=== PATIENT | female | born 1950 | race Caucasian/White ===

== ENCOUNTER 2019-03-02 11:00 | Outpatient (RCR) | payer SELFPAY | END 2019-04-01 00:01 | LOC: CR 11:00 | PROVIDERS: Family Provider Internal Medicine; Referring Provider Internal Medicine Cardiovascular Disease; Visit Provider Internal Medicine | DX: Z98.61 Coronary angioplasty status (principal) ==

== ENCOUNTER 2019-04-09 11:16 | Outpatient (RCR) | payer SELFPAY | END 2019-05-02 23:59 | disposition home or self-care (01) | LOC: CR 11:16 | PROVIDERS: Family Provider Internal Medicine; Referring Provider Internal Medicine Cardiovascular Disease; Visit Provider Internal Medicine Cardiovascular Disease | DX: Z95.5 Presence of coronary angioplasty implant and graft (principal) ==

== ENCOUNTER → 2019-04-23 09:05 | Outpatient (BNVA) | payer MEDICARE, BC, SELFPAY | PROVIDERS: Family Provider Internal Medicine; Referring Provider Internal Medicine; Visit Provider Podiatrist Foot & Ankle Surgery | DX: M21.961 Unspecified acquired deformity of right lower leg (principal) | CPT/HCPCS: 73630; 77077 ==

== ENCOUNTER 2019-05-05 13:09 | Outpatient (RCR) | payer SELFPAY | END 2019-05-31 23:59 | disposition home or self-care (01) | LOC: CR 13:09 | PROVIDERS: Family Provider Internal Medicine; Referring Provider Internal Medicine Cardiovascular Disease; Visit Provider Internal Medicine Cardiovascular Disease | DX: Z95.5 Presence of coronary angioplasty implant and graft (principal) ==

== ENCOUNTER 2019-06-02 12:40 | Outpatient (RCR) | payer SELFPAY | END 2019-07-01 23:59 | disposition home or self-care (01) | LOC: CR 12:40 | PROVIDERS: Family Provider Internal Medicine; Referring Provider Internal Medicine Cardiovascular Disease; Visit Provider Internal Medicine Cardiovascular Disease | DX: Z95.5 Presence of coronary angioplasty implant and graft (principal) ==

== ENCOUNTER 2019-09-01 14:10 | Outpatient (RCR) | payer SELFPAY | END 2019-09-30 23:59 | disposition home or self-care (01) | LOC: CR 14:10 | PROVIDERS: Family Provider Internal Medicine; Referring Provider Internal Medicine Cardiovascular Disease; Visit Provider Internal Medicine Cardiovascular Disease | DX: Z95.5 Presence of coronary angioplasty implant and graft (principal) ==

== ENCOUNTER 2019-10-01 | Outpatient (RCR) | payer SELFPAY | END 2019-10-31 23:00 | disposition home or self-care (01) | LOC: CR | PROVIDERS: Family Provider Internal Medicine; Referring Provider Internal Medicine Cardiovascular Disease; Visit Provider Internal Medicine Cardiovascular Disease | DX: Z95.5 Presence of coronary angioplasty implant and graft (principal) ==

== ENCOUNTER 2019-11-04 13:10 | Outpatient (RCR) | payer SELFPAY | END 2019-12-01 23:59 | disposition home or self-care (01) | LOC: CR 13:10 | PROVIDERS: Family Provider Internal Medicine; Visit Provider Internal Medicine Cardiovascular Disease | DX: Z95.5 Presence of coronary angioplasty implant and graft (principal) ==

== ENCOUNTER → 2019-11-24 10:41 | Outpatient (BNVA) | payer MEDICARE, BC, SELFPAY | PROVIDERS: Family Provider Internal Medicine; Visit Provider Podiatrist Foot & Ankle Surgery | DX: M25.572 Pain in left ankle and joints of left foot (principal) | CPT/HCPCS: 73610 ==

== ENCOUNTER 2019-12-02 14:35 | Outpatient (RCR) | payer SELFPAY | END 2019-12-31 23:59 | disposition home or self-care (01) | LOC: CR 14:35 | PROVIDERS: Family Provider Internal Medicine; Visit Provider Internal Medicine Cardiovascular Disease | DX: Z95.5 Presence of coronary angioplasty implant and graft (principal) ==

== ENCOUNTER 2020-01-02 10:42 | Outpatient (RCR) | payer SELFPAY | END 2020-01-31 23:59 | disposition home or self-care (01) | LOC: CR 10:42 | PROVIDERS: Family Provider Internal Medicine; Visit Provider Internal Medicine Cardiovascular Disease | DX: Z95.5 Presence of coronary angioplasty implant and graft (principal) ==

== ENCOUNTER 2020-01-05 08:17 | Outpatient (CLI) | payer MEDICARE, BC, SELFPAY ==
--- NOTE | 2020-01-05 08:23 | MM_ITS ---
WS: [id number] Bilateral screening digital mammogram, 01/05/2020 Clinical Data: SCREENING Comparison: 01/01/2019, 12/25/2017, 11/30/2016, 11/29/2015, 11/26/2014, 05/28/2014, 12/10/2013, 11/25/2013, 11/21/2012, , 10/26/2010, 10/21/2009, 10/19/2008, 10/17/2007, 10/11/2006. Findings: The breast parenchymal pattern shows fibroglandular tissue No spiculated masses or clustered calcific ations are seen. There are no secondary signs of carcinoma. MM/[id number] Impression: 1. Negative bilateral mammogram unchanged. 2. Recommend annual screening mammograms. BIRADS: 1-Negative FOLLOW UP: 1 Year Follow-up The CAD bag checker was used.
== END 2020-01-05 08:18 | disposition home or self-care (01) ==
LOC: RADSHAW 08:22
PROVIDERS: PCP Internal Medicine; Visit Provider Obstetrics & Gynecology
DX: Z12.31 Encounter for screening mammogram for malignant neoplasm of breast (principal)
CPT/HCPCS: 77067

== ENCOUNTER 2020-02-02 10:33 | Outpatient (RCR) | payer SELFPAY | END 2020-03-01 23:59 | disposition home or self-care (01) | LOC: CR 10:33 | PROVIDERS: Family Provider Internal Medicine; PCP Internal Medicine; Referring Provider Internal Medicine; Visit Provider Internal Medicine | DX: Z95.5 Presence of coronary angioplasty implant and graft (principal) ==

== ENCOUNTER 2020-03-04 10:17 | Outpatient (RCR) | payer SELFPAY | END 2020-04-01 23:59 | disposition home or self-care (01) | LOC: CR 10:17 | PROVIDERS: Family Provider Internal Medicine; PCP Internal Medicine; Referring Provider Internal Medicine; Visit Provider Internal Medicine | DX: Z95.5 Presence of coronary angioplasty implant and graft (principal) ==

== ENCOUNTER → 2020-03-12 09:32 | Outpatient (BNVA) | payer MEDICARE, BC, SELFPAY | PROVIDERS: Family Provider Internal Medicine; PCP Internal Medicine; Referring Provider Podiatrist Foot & Ankle Surgery; Visit Provider Anesthesiology Pain Medicine | DX: G89.29 Other chronic pain (principal); M25.572 Pain in left ankle and joints of left foot; Z79.891 Long term (current) use of opiate analgesic | CPT/HCPCS: 99203 ==

== ENCOUNTER → 2020-03-18 10:18 | Outpatient (BNVA) | payer MEDICARE, BC, SELFPAY | PROVIDERS: Family Provider Internal Medicine; PCP Internal Medicine; Visit Provider Nurse Practitioner Family | DX: Z20.828 Contact with and (suspected) exposure to other viral communicable diseases (principal); J06.9 Acute upper respiratory infection, unspecified | CPT/HCPCS: 87635 ==

== ENCOUNTER 2020-03-21 04:55 | Emergency (ER) | payer MEDICARE, BC, SELFPAY ==
[2020-03-21] VITALS (23 sets, daily range): BP systolic 112–128; BP diastolic 58–82; PULSE 46–73; RESP 13–21; TEMP 36.3; O2SAT 94–98; BMI 24.0
--- NOTE | 2020-03-21 05:10 | XRR_ITS ---
PROCEDURE INFORMATION: Exam: XR Chest, 1 View Exam date and time: 03/21/2020 5:52 AM Age: 69 years old Clinical indication: Condition or disease; Other: Covid 19 TECHNIQUE: Imaging protocol: XR of the chest Views: 1 view. COMPARISON: CR Chest 1 view [id number] 12/30/2013 11:47 AM FINDINGS: Again demonstrated are moderate ill-defined coarse opacities in mainly peripheral portions of bilateral mid to lower lung zones, likely fibrosis/scarring. Otherwise no focal pulmonary consolidation is demonstrated on this single frontal image. No significant obscuration of the lateral costophrenic angles is demonstrated. No significant vascular congestion is demonstrated. Visualized cardiac silhouette size appears within normal limits. There are calcifications in the thoracic aorta. XR/XR chest 1V portable [id number] IMPRESSION: Again demonstrated are moderate ill-defined coarse opacities in mainly peripheral portions of bilateral mid to lower lung zones, likely fibrosis/scarring. Otherwise no definite acute pulmonary process is demonstrated.
--- NOTE | 2020-03-21 05:37 | ED_ITS ---
HPI - COVID General: Chief Complaint: COVID symptoms Stated Complaint: infusion Time Seen by Provider: 03/21/20 05:10 Triage information: No fever, cough or shortness of breath . No known COVID + exposure last 14 days History of Present Illness: MD complaint: known COVID positive Prior covid testing: yes, results known COVID 19 common symptoms: positive body aches, headache(s) and nasal congestion; negative cough, dyspnea, throat pain, nausea or vomiting COVID 19 other sytmptoms: negative chest pressure or chest pain Onset (ago): day(s) Severity: moderate Pertinent comorbid conditions: hypertension Treatment prior to arrival: acetaminophen COVID Results: SARS-CoV-2 RNA (RT-PCR) Detected (NOT DETECTED) A 03/18/20 10:18 03/18/20 Review of Systems Const: Reports: body aches ENMT: Reports: nasal congestion; Denies: throat pain Card: Denies: chest pain Resp: Denies: dyspnea GI: Denies: nausea or vomiting Neuro: Reports: headache(s) PFSH ED PFSH: Medical History (Updated 03/21/20 @ 05:43 by Eliu Bernard DO) ASHD (arteriosclerotic heart disease) Hypercholesteremia Hypertension Pulmonary fibrosis SOB (shortness of breath) Surgical History (Updated 03/12/20 @ 09:38 by Ivana Robles LPN) H/O heart artery stent Family History Mother CAD (coronary artery disease) Diabetes Hypertension Father Cancer Hyperlipidemia Hypertension Sister Diabetes Denies family history of Clotting disorder Dementia Psychiatric illness Chronic kidney disease (CKD) Suicide Anesthesia complication Bleeding disorder Family history of premature coronary artery disease Lung disease Stroke Social History Smoking and tobacco status: former smoker Alcohol intake: never Lives independently: Yes Current occupational status: retired History of recent travel: No Physical Exam Const: COMMON NORMALS: no acute distress, average body habitus and patient oriented x3 HENMT: COMMON NORMALS: normocephalic HEAD & SCALP: normocephalic Chest: COMMONS NORMALS: normal inspection of the chest Resp: COMMON NORMALS: normal respiratory effort, No retractions, No use of accessory muscles and clear to auscultation bilaterally AUSCULTATION: clear to auscultation bilaterally Neuro: COMMON NORMALS: patient oriented x3 Course Vital Signs: Vital signs: Vital Signs Temperature 97.4 F L 03/21/20 05:16 Pulse Rate 51 L 03/21/20 06:35 Respiratory Rate 13 03/21/20 06:35 Blood Pressure 128/66 03/21/20 06:35 Pulse Oximetry 97 03/21/20 06:35 MDM - COVID MDM Narrative: Medical decision making narrative: 69-year-old female with COVID-19. Her chest x-ray is stable from prior. She is a candidate for monoclonal antibody infusion, and elected to have this done after discussion of risks and potential benefits. She is tolerating the infusion well. Should she continue to do so, she will be discharged to home. Laboratory otherwise is benign at this point. Lab Data: Labs: Lab Results 03/21/20 03/21/20 Range/Units 05:38 05:38 WBC 5.4 (4.0-10.0) 10^3/ uL RBC 4.72 (4.1-5.3) 10^6/u L Hgb 13.0 (11.5-15.3) g/dL Hct 42.2 (37.0-47.0) % MCV 89.4 (81-99) fL MCH 27.5 L (28.0-34.0) pg MCHC 30.8 (30.0-36.0) g/dL RDW 13.4 (12.1-15.1) % Plt Count 174 (130-400) 10^3/c mm MPV 12.4 H (7.4-10.4) fL Neut % (Auto) 57.6 % Lymph % (Auto) 26.7 % [place] % (Auto) 9.7 % Eos % (Auto) 5.0 % Baso % (Auto) 0.6 % Neut # (Auto) 3.08 (1.8-7.7) 10^3/u L Lymph # (Auto) 1.4 (0.8-4.8) 10^3/u L [place] # (Auto) 0.5 (0.2-0.9) 10^3/u L Eos # (Auto) 0.3 (0.0-0.8) 10^3/u L Baso # (Auto) 0.0 (0.0-0.1) 10^3/u L Nucleated RBC % (a uto) 0 % Nucleated RBCs # 0.0 /100WBC Sodium 140 (136-145) mmol/L Potassium 3.5 (3.5-5.1) mmol/L Chloride 100 (98-107) mmol/L Carbon Dioxide 26 (22-29) mmol/L Anion Gap 17.5 (5-19) BUN 20 (8-23) mg/dL GFR Calculation Not Reportable Calculated Osmolal ity 295 (285-295) mOsm/k g Calcium 8.8 (8.5-10.5) mg/dL Total Bilirubin 0.4 (0.15-1.2) mg/dL AST 26 (0-32) U/L ALT 21 (0-33) U/L Alkaline Phosphata se 89 (35-105) IU/L Total Protein 6.8 (6.6-8.7) g/dL Albumin 3.9 (3.5-5.2) g/dL Globulin 2.9 (1.3-4.6) g/dL Procalcitonin 0.08 (0-0.5) ng/mL COVID Results: SARS-CoV-2 RNA (RT-PCR) Detected (NOT DETECTED) A 03/18/20 10:18 03/18/20 Monoclonal Antibody Treatments Inclusion/Exclusion Criteria weight >/= 40 kg and + direct Sars-Cov-2 test less than 7-10 days ago age >/= 65 not requiring hospitalization, not requiring oxygen (if not chronically on oxygen) and no increase oxygen requirement (if chronically on oxygen) Patient education patient/family/caregiver received/reviewed fact sheet, Emergency Use Authorization/unapproved drug status discussed with patient/family/caregiver, alternatives to this treatment discussed with patient/family/caregiver, risks and benefits of medication reviewed with patient/family/caregiver, patient/family/caregiver given opportunity for questions, which were answered and patient consents to receiving Monoclonal Antibody Treatment Plan for treatment Meets criteria for Monoclonal Antibody infusion Ordering Monoclonal Antibody infusion for today and Monoclonal antibody information given Discharge Plan Discharge Patient Disposition: Home Clinical Impression: COVID-19 Condition: Stable Prescriptions: No Action estradiol [Estrace] 0.01 % (0.1 mg/gram) cream 1 gm VAGINAL .weekly RF: 0 meloxicam 15 mg tablet 15 mg PO QDAY RF: 0 thyroid (pork) [[place] Thyroid] 60 mg tablet 60 mg PO QDAY RF: 0 (DME) Custom Nimo Brace See Rx Instructions .Route .MEDSUPPLY Qty: 1 RF: 0 hydrocodone-acetaminophen 5-325 mg tablet 1 tab PO Q6H PRNRF: 0 hydrochlorothiazide 25 mg tablet 25 mg PO DAILY RF: 0 aspirin 81 mg tablet,chewable 81 mg PO DAILY RF: 0 metoprolol tartrate 25 mg tablet 25 mg PO BID 90 Days Qty: 180 RF: 3 simvastatin 40 mg tablet 40 mg PO .HS 90 Days Qty: 90 RF: 3 Discharge Orders: Discharge ED (Routine); Ordered 03/21/20 Ordered By: Eliu Bernard Referrals: Sarina Dodson MD [Primary Care Provider] - 4-7 days Discharge Diet: Advance as tolerated Discharge Activity: Limit activity as instructed Patient Instructions: Viral Syndrome (ED) Activity Restrictions/Additional Instructions: Continue to quarantine a total of at least 10 days as directed by your primary provider. Return for worsening shortness of breath, vomiting liquids or medications, inabilityto control fever, other concerning symptoms. Coding Level of Care Code ED Field Nurse Case Manager for [employer] Fwd Exam Expanded Problem Focused
[2020-03-21 05:44] LABS: Basophils % 0.6 %; Eosinophils # 0.3 10^3/uL (0.0-0.8); Hematocrit 42.2 % (37.0-47.0); Lymphocytes # 1.4 10^3/uL (0.8-4.8); Lymphocytes % 26.7 %; Mean Corpuscular HGB Conc 30.8 g/dL (30.0-36.0); Mean Corpuscular Hemoglobin 27.5 pg (28.0-34.0); Mean Corpuscular Volume 89.4 fL (81-99); Mean Platelet Volume 12.4 fL (7.4-10.4); Monocytes # 0.5 10^3/uL (0.2-0.9); Monocytes % 9.7 %; Neutrophils # 3.08 10^3/uL (1.8-7.7); Neutrophils % 57.6 %; Nucleated Red Blood Cells % 0 %; Platelet Count 174 10^3/cmm (130-400); Red Blood Count 4.72 10^6/uL (4.1-5.3); Red Cell Distribution Width 13.4 % (12.1-15.1); White Blood Count 5.4 10^3/uL (4.0-10.0)
[2020-03-21 06:19] LABS: Procalcitonin 0.08 ng/mL (0-0.5)
[2020-03-21 06:31] LABS: Alanine Aminotransferase 21 U/L (0-33); Albumin Level 3.9 g/dL (3.5-5.2); Alkaline Phosphatase 89 IU/L (35-105); Anion Gap 17.5 (5-19); Aspartate Amino Transferase 26 U/L (0-32); Blood Urea Nitrogen 20 mg/dL (8-23); Calcium 8.8 mg/dL (8.5-10.5); Carbon Dioxide 26 mmol/L (22-29); Chloride 100 mmol/L (98-107); Globulin 2.9 g/dL (1.3-4.6); Glucose 146 mg/dL (65-115); Magnesium 1.6 mg/dL (1.7-2.3); Osmolality Calculated 295 mOsm/kg (285-295); Potassium 3.5 mmol/L (3.5-5.1); Sodium 140 mmol/L (136-145); Total Bilirubin 0.4 mg/dL (0.15-1.2); Total Protein 6.8 g/dL (6.6-8.7)
--- NOTE | 2020-03-23 12:30 | DCPLANNER ---
Addendum entered by Rosalinda Granados 03/31/20 15:06: accounting manager called to check on patient day 10 after receiving the infusion. Patient stated that she was feeling pretty good, had a small headache, but she is feeling fine. Has not been admitted to hospital anywhere Addendum entered by Rosalinda Granados 03/25/20 11:44: accounting manager called to check on patient after receiving the BAM infusion. Patient stated that she is feeling really good. Original Note: accounting manager had message that patient received the BAM infusion. accounting manager called to check on patient after receiving the infusion. accounting manager spoke with patient stated that she tolorated the infusion well. Before the infusion, patient stated that she had a headache, body ache, and a low grade fever. After the infusion patient stated that she has lost her sense of taste, no headache, body aches are better. Patient stated that she could not tell a big difference but she felt like she was over the worst part of if before getting infusion.
== END 2020-03-21 07:56 | disposition home or self-care (01) ==
PROVIDERS: Emergency Provider Emergency Medicine; PCP Internal Medicine
DX: U07.1 COVID-19 (principal); Z79.82 Long term (current) use of aspirin; I10 Essential (primary) hypertension; Z87.891 Personal history of nicotine dependence
CPT/HCPCS: 12345; 71045; 80053; 83735; 84145; 85025; 86140; 96365; 99283; 99284; J7050

== ENCOUNTER 2020-04-05 11:47 | Outpatient (RCR) | payer SELFPAY | END 2020-05-02 23:59 | disposition home or self-care (01) | LOC: CR 11:47 | PROVIDERS: Family Provider Internal Medicine; PCP Internal Medicine; Referring Provider Internal Medicine; Visit Provider Internal Medicine | DX: Z95.5 Presence of coronary angioplasty implant and graft (principal) ==

== ENCOUNTER 2020-05-04 10:21 | Outpatient (RCR) | payer SELFPAY | END 2020-05-30 23:59 | disposition home or self-care (01) | LOC: CR 10:21 | PROVIDERS: Family Provider Internal Medicine; PCP Internal Medicine; Referring Provider Internal Medicine; Visit Provider Internal Medicine | DX: Z95.5 Presence of coronary angioplasty implant and graft (principal) ==

== ENCOUNTER 2020-05-31 08:59 | Outpatient (RCR) | payer SELFPAY | END 2020-06-30 23:59 | disposition home or self-care (01) | LOC: CR 08:59 | PROVIDERS: Family Provider Internal Medicine; PCP Internal Medicine; Referring Provider Internal Medicine; Visit Provider Internal Medicine | DX: Z95.5 Presence of coronary angioplasty implant and graft (principal) ==

== ENCOUNTER 2020-07-01 13:57 | Outpatient (RCR) | payer SELFPAY | END 2020-07-30 23:59 | disposition home or self-care (01) | LOC: CR 13:57 | PROVIDERS: Family Provider Internal Medicine; PCP Internal Medicine; Referring Provider Internal Medicine; Visit Provider Internal Medicine | DX: Z95.5 Presence of coronary angioplasty implant and graft (principal) ==

== ENCOUNTER 2020-08-02 09:21 | Outpatient (RCR) | payer SELFPAY | END 2020-08-30 23:59 | disposition home or self-care (01) | LOC: CR 09:21 | PROVIDERS: Family Provider Internal Medicine; PCP Internal Medicine; Referring Provider Internal Medicine; Visit Provider Internal Medicine | DX: Z95.5 Presence of coronary angioplasty implant and graft (principal) ==

== ENCOUNTER 2020-09-02 13:37 | Outpatient (RCR) | payer SELFPAY | END 2020-09-29 23:59 | disposition home or self-care (01) | LOC: CR 13:37 | PROVIDERS: Family Provider Internal Medicine; PCP Internal Medicine; Referring Provider Internal Medicine; Visit Provider Internal Medicine | DX: Z95.5 Presence of coronary angioplasty implant and graft (principal) ==

== ENCOUNTER 2020-09-30 13:37 | Outpatient (RCR) | payer SELFPAY | END 2020-10-30 23:59 | disposition home or self-care (01) | LOC: CR 13:37 | PROVIDERS: Family Provider Internal Medicine; PCP Internal Medicine; Referring Provider Internal Medicine; Visit Provider Internal Medicine | DX: Z95.5 Presence of coronary angioplasty implant and graft (principal) ==

== ENCOUNTER 2020-11-01 14:03 | Outpatient (RCR) | payer SELFPAY | END 2020-11-30 23:59 | disposition home or self-care (01) | LOC: CR 14:03 | PROVIDERS: Family Provider Internal Medicine; PCP Internal Medicine; Referring Provider Internal Medicine; Visit Provider Internal Medicine | DX: Z95.5 Presence of coronary angioplasty implant and graft (principal) ==

== ENCOUNTER 2020-12-01 13:13 | Outpatient (RCR) | payer SELFPAY | END 2020-12-30 23:59 | disposition home or self-care (01) | LOC: CR 13:13 | PROVIDERS: Family Provider Internal Medicine; PCP Internal Medicine; Referring Provider Internal Medicine; Visit Provider Internal Medicine | DX: Z95.5 Presence of coronary angioplasty implant and graft (principal) ==

== ENCOUNTER 2021-01-04 09:15 | Outpatient (RCR) | payer SELFPAY | END 2021-01-30 23:59 | disposition home or self-care (01) | LOC: CR 09:15 | PROVIDERS: Family Provider Internal Medicine; PCP Internal Medicine; Referring Provider Internal Medicine; Visit Provider Internal Medicine | DX: Z95.5 Presence of coronary angioplasty implant and graft (principal) ==

== ENCOUNTER 2021-02-01 13:12 | Outpatient (RCR) | payer SELFPAY | END 2021-03-01 23:59 | disposition home or self-care (01) | LOC: CR 13:12 | PROVIDERS: Family Provider Internal Medicine; PCP Internal Medicine; Referring Provider Internal Medicine; Visit Provider Internal Medicine | DX: Z95.5 Presence of coronary angioplasty implant and graft (principal) ==

== ENCOUNTER 2021-02-11 12:38 | Outpatient (CLI) | payer MEDICARE, SELFPAY ==
--- NOTE | 2021-02-11 12:53 | MM_ITS ---
WS: [id number] BILATERAL DIGITAL SCREENING MAMMOGRAPHY WITH CAD CLINICAL INFORMATION: SCREEN HISTORY: Screening mammogram. No current complaints. COMPARISON: January 05, 2020 TECHNIQUE: Bilateral CC and MLO views. FINDINGS: Scattered fibroglandular densities bilaterally. Punctate calcifications. Vascular calcification. No s uspicious focal mass, asymmetry, calcifications, or architectural distortion. No evidence of malignan cy. MM/[place] [id number] IMPRESSION: BI-RADS: 2-Benign FOLLOW UP: 1 Year Follow-up Recommend return to annual screening mammography.
== END 2021-02-11 12:39 | disposition home or self-care (01) ==
PROVIDERS: PCP Internal Medicine; Visit Provider Internal Medicine
DX: Z12.31 Encounter for screening mammogram for malignant neoplasm of breast (principal)
CPT/HCPCS: 77067

== ENCOUNTER 2021-03-02 10:07 | Outpatient (RCR) | payer SELFPAY | END 2021-04-01 23:59 | disposition home or self-care (01) | LOC: CR 10:07 | PROVIDERS: Family Provider Internal Medicine; PCP Internal Medicine; Referring Provider Internal Medicine; Visit Provider Internal Medicine | DX: Z95.5 Presence of coronary angioplasty implant and graft (principal) ==

== ENCOUNTER 2021-04-04 08:52 | Outpatient (RCR) | payer SELFPAY | END 2021-05-02 23:59 | disposition home or self-care (01) | LOC: CR 08:52 | PROVIDERS: Family Provider Internal Medicine; PCP Internal Medicine; Referring Provider Internal Medicine; Visit Provider Internal Medicine | DX: Z95.5 Presence of coronary angioplasty implant and graft (principal) ==

== ENCOUNTER 2021-05-09 15:18 | Outpatient (RCR) | payer SELFPAY | END 2021-05-30 23:59 | disposition home or self-care (01) | LOC: CR 15:18 | PROVIDERS: Family Provider Internal Medicine; PCP Internal Medicine; Referring Provider Internal Medicine; Visit Provider Internal Medicine | DX: Z95.5 Presence of coronary angioplasty implant and graft (principal) ==

== ENCOUNTER 2021-05-17 11:27 | Outpatient (CLI) | payer MEDICARE, BC, SELFPAY ==
--- NOTE | 2021-05-17 11:37 | XR_ITS ---
WS: [id number] SCREENING DEXA SCAN [facility] CLINICAL INFORMATION: ASYMPTOMATIC POST MENOPAUSAL COMPARISON: 2019 FINDINGS: The L1-L4 bone mineral density measures 1.283 g/cm2. This corresponds to a T score score of 0.9 and Z score of 2.3. Left femoral neck bone mineral density measures 0.919 g/cm2. This corresponds to a T score of -0.7 an d Z score of 0.7. Right femoral neck bone mineral density measures 0.941 g/cm2. This corresponds to a T score -0.5of an d Z score of 0.9. Mean femoral neck bone mineral density measures 0.930 g/cm2. This corresponds to a T score of -0.6 an d Z score of 0.8. XR/XR DEXA axial skeleton* [id number] IMPRESSION: Normal bone mineralization. Patient's FRAX calculated 10 year probability for major osteoporotic fracture i s 14.0 % and osteoporotic hip fracture is 1.5%.
== END 2021-05-17 11:28 | disposition home or self-care (01) ==
LOC: RAD 11:33
PROVIDERS: PCP Internal Medicine; Visit Provider Internal Medicine
DX: Z78.0 Asymptomatic menopausal state (principal)
CPT/HCPCS: 77080

== ENCOUNTER 2021-05-31 11:48 | Outpatient (RCR) | payer MEDICARE, SELFPAY | END 2021-06-30 23:59 | disposition home or self-care (01) | LOC: CR 11:48 | PROVIDERS: Family Provider Internal Medicine; PCP Internal Medicine; Referring Provider Internal Medicine; Visit Provider Internal Medicine | DX: Z95.5 Presence of coronary angioplasty implant and graft (principal) ==

== ENCOUNTER 2021-07-05 12:48 | Outpatient (RCR) | payer SELFPAY | END 2021-07-30 23:59 | disposition home or self-care (01) | LOC: CR 12:48 | PROVIDERS: Family Provider Internal Medicine; PCP Internal Medicine; Referring Provider Internal Medicine; Visit Provider Internal Medicine | DX: Z95.5 Presence of coronary angioplasty implant and graft (principal) ==

== ENCOUNTER 2021-07-14 09:12 | Outpatient (CLI) | payer MEDICARE, BC, SELFPAY ==
--- NOTE | 2021-07-14 09:26 | XR_ITS ---
WS: [id number] Right foot, 3 views, 07/14/2021 Clinical Data: PAIN IN RIGHT TOE Comparison: Bilateral feet, 04/23/2019. Findings: No fractures or dislocations are seen. No bone destruction or erosion is noted. The joint spaces and soft tissues are normal. Minimal vascular calcification is seen. There is a small Achilles spur. XR/XR foot RT min 3V* [id number] Impression: Negative right foot.
== END 2021-07-14 09:13 | disposition home or self-care (01) ==
PROVIDERS: PCP Internal Medicine; Visit Provider Nurse Practitioner Family
DX: M79.674 Pain in right toe(s) (principal)
CPT/HCPCS: 73630

== ENCOUNTER 2021-08-01 12:24 | Outpatient (RCR) | payer SELFPAY | END 2021-08-30 23:59 | disposition home or self-care (01) | LOC: CR 12:24 | PROVIDERS: Family Provider Internal Medicine; PCP Internal Medicine; Referring Provider Internal Medicine; Visit Provider Internal Medicine | DX: Z95.5 Presence of coronary angioplasty implant and graft (principal) ==

== ENCOUNTER → 2021-08-16 08:27 | Outpatient (BNVA) | payer MEDICARE, BC, SELFPAY | PROVIDERS: Family Provider Internal Medicine; PCP Internal Medicine; Visit Provider Internal Medicine Rheumatology | DX: M15.9 Polyosteoarthritis, unspecified (principal); M86.8X7 Other osteomyelitis, ankle and foot; Z11.59 Encounter for screening for other viral diseases; Z11.1 Encounter for screening for respiratory tuberculosis; Z79.899 Other long term (current) drug therapy; Z82.61 Family history of arthritis; Z71.85 Encounter for immunization safety counseling | CPT/HCPCS: 86200; 86235; 86480; 86704; 86803; 87340; 99204 ==

== ENCOUNTER 2021-08-31 09:35 | Outpatient (RCR) | payer SELFPAY | END 2021-09-29 23:59 | disposition home or self-care (01) | LOC: CR 09:35 | PROVIDERS: Family Provider Internal Medicine; PCP Internal Medicine; Referring Provider Internal Medicine; Visit Provider Internal Medicine | DX: Z95.5 Presence of coronary angioplasty implant and graft (principal) ==

== ENCOUNTER 2021-09-30 11:07 | Outpatient (RCR) | payer SELFPAY | END 2021-10-30 23:59 | disposition home or self-care (01) | LOC: CR 11:07 | PROVIDERS: Family Provider Internal Medicine; PCP Internal Medicine; Referring Provider Internal Medicine; Visit Provider Internal Medicine | DX: Z95.5 Presence of coronary angioplasty implant and graft (principal) ==

== ENCOUNTER 2021-11-02 14:03 | Outpatient (CLI) | payer MEDICARE, BC, SELFPAY ==
--- NOTE | 2021-11-02 15:00 | CT_ITS ---
WS: [id number] NONCONTRAST CT CHEST HIGH-RESOLUTION TECHNIQUE: Noncontrast CT of the chest high-resolution with coronal and sagittal reformatted images. Inspiratory and expiratory imaging. Prone imaging. CLINICAL INFORMATION: R76.8 - Other specified abnormal immunological findings i... COMPARISON: CT 2013 DLP: 2410.[address] scans at [facility] use at least one of these dose optimization techniques: automated e xposure control; mA and/or kV adjustment per patient size (includes targeted exams where dose is matc hed to clinical indication); or iterative reconstruction. FINDINGS: Scattered subpleural reticular opacities with mild traction bronchiectasis more prominent in the lowe r lobes. Interlobular septal thickening with subpleural honeycombing compatible with idiopathic pulmo nary fibrosis. Mild air trapping on the expiratory images. No acute pulmonary infiltrates. No focal p neumonia or pleural fluid. Mild aortic calcification. Coronary calcification. No mediastinal or hilar lymphadenopathy. No axilla ry lymphadenopathy. Adrenal glands are normal. Small RIGHT renal cyst measuring 2.9 CM. Adrenal glands are normal. Cholel ithiasis. Unremarkable thoracic spine. CT/CT chest wo con [id number] IMPRESSION: 1. Subpleural reticular opacities with subpleural honeycombing more prominent in the lower lobes compatible with IPF. Subpleural honeycombing is progressed c ompared to 2013. 2. Mild bilateral lower lobe bronchiectasis. 3. No acute pulmonary infiltrates. 4. Vascular opacification including coronary. 5. Cholelithiasis. This can be further evaluated with ultrasound. 6. RIGHT renal cyst measuring 2.9 cm. 7. Tiny esophageal hiatal hernia.
== END 2021-11-02 14:04 | disposition home or self-care (01) ==
LOC: RAD 14:06
PROVIDERS: PCP Internal Medicine; Visit Provider Internal Medicine Rheumatology
DX: R76.8 Other specified abnormal immunological findings in serum (principal); K44.9 Diaphragmatic hernia without obstruction or gangrene; Q61.01 Congenital single renal cyst; K80.20 Calculus of gallbladder without cholecystitis without obstruction; J47.9 Bronchiectasis, uncomplicated
CPT/HCPCS: 71250

== ENCOUNTER → 2021-11-21 12:37 | Outpatient (BNVA) | payer MEDICARE, BC, SELFPAY | PROVIDERS: PCP Internal Medicine; Visit Provider Internal Medicine Cardiovascular Disease | DX: I25.10 Atherosclerotic heart disease of native coronary artery without angina pectoris (principal); I10 Essential (primary) hypertension; Z86.16 Personal history of COVID-19; Z95.5 Presence of coronary angioplasty implant and graft; E78.00 Pure hypercholesterolemia, unspecified | CPT/HCPCS: 99213 ==

== ENCOUNTER → 2021-11-22 10:05 | Outpatient (BNVA) | payer MEDICARE, BC, SELFPAY | PROVIDERS: PCP Internal Medicine; Visit Provider Internal Medicine Rheumatology | DX: M06.9 Rheumatoid arthritis, unspecified (principal); M34.9 Systemic sclerosis, unspecified; J84.9 Interstitial pulmonary disease, unspecified; Z86.16 Personal history of COVID-19; Z71.85 Encounter for immunization safety counseling; Z87.891 Personal history of nicotine dependence; Z82.61 Family history of arthritis | CPT/HCPCS: 99204; 99205; 99214 ==

== ENCOUNTER 2021-12-06 14:03 | Outpatient (RCR) | payer SELFPAY | END 2021-12-30 23:59 | disposition home or self-care (01) | LOC: CR 14:03 | PROVIDERS: PCP Internal Medicine; Referring Provider Internal Medicine; Visit Provider Internal Medicine | DX: Z95.5 Presence of coronary angioplasty implant and graft (principal) ==

== ENCOUNTER 2021-12-08 16:35 | Emergency (ER) | payer MEDICARE, BC, SELFPAY ==
[2021-12-08 16:37] VITALS: BP 164/94; PULSE 72; RESP 16; TEMP 36.5; O2SAT 98; BMI 23.8
--- NOTE | 2021-12-08 17:09 | ED_ITS ---
HPI - Allergic Reaction General: Chief complaint: Allergic Reaction Stated complaint: rash, itchy Time Seen by Provider: 12/08/21 16:54 History of Present Illness: HPI narrative: Patient is in today for allergic reaction to naproxen. She reports that she took that not realizing that it had sulfa in it and she is allergic to sulfa. She reports that immediately after she started feeling like her eyes were swelling, itching all over, her skin turned red. She denied ever having any difficulty breathing. She denied swelling of her lips or tongue. She reports that she took 2 Benadryl oral and her symptoms are almost resolved. and and patient both state that she is much less red at this time. [facility] ED PFS: Medical History ASHD (arteriosclerotic heart disease) Dactylitis of toe High risk medication use Hypercholesteremia Hypertension ILD (interstitial lung disease) Immunization counseling Inflammatory arthritis Osteoarthritis of hands, bilateral Pulmonary fibrosis Rheumatoid arthritis SOB (shortness of breath) Systemic sclerosis with limited cutaneous involvement Surgical History H/O heart artery stent History of ankle surgery x3 History of bilateral knee replacement History of bladder repair surgery x2 History of hysterectomy S/P knee replacement bilat knee replacement Family History Mother CAD (coronary artery disease) Diabetes Hypertension Father Cancer Hyperlipidemia Hypertension Sister Diabetes Denies family history of Rheumatoid arthritis Lupus Clotting disorder Dementia Psychiatric illness Chronic kidney disease (CKD) Suicide Anesthesia complication Bleeding disorder Family history of premature coronary artery disease Lung disease Stroke Social History Smoking and tobacco status: former smoker Alcohol intake: never Lives independently: Yes Current occupational status: retired History of recent travel: No Physical Exam HENMT: COMMON NORMALS: Normal external nose present NOSE: Normal external nose present and Normal nares present MOUTH: Normal oral and palatal mucosa present and lip normal THROAT: posterior oropharynx normal and uvula midline Resp: COMMON NORMALS: normal respiratory effort, No retractions, No use of accessory muscles and clear to auscultation bilaterally (Mild crackles bilateral lower lobes-hx interstitial lung disease) AUSCULTATION: clear to auscultation bilaterally (Mild crackles bilateral lower lobes-hx interstitial lung disease) and no wheezes Cardio: COMMON NORMALS: regular rate, S1 normal heart sound present and S2 normal heart sound present RATE: regular rate HEART SOUNDS: S1 normal heart sound present and S2 normal heart sound present Skin: NARRATIVE SKIN EXAM: Generalized skin slightly erythematous. No obvious wheals or hives. Course Reevaluation(s): Reevaluation #1: Reevaluation at 1800?patient has received Decadron. Redness is lessening in her face. There is still no swelling to her face, mouth, tongue, throat. She reports itching has resolved. Vital Signs: Vital signs: Vital Signs Temperature 97.7 F 12/08/21 16:37 Pulse Rate 72 12/08/21 16:37 Respiratory Rate 16 12/08/21 16:37 Blood Pressure 152/81 12/08/21 18:11 Pulse Oximetry 97 12/08/21 18:11 Oxygen Delivery Me thod 12/08/21 16:37 MDM - Allergic Reaction Medical Decision Making Patient is already resolving after 2 tabs of Benadryl. Will administer 1 IM dose of 4 mg Decadron and watch the patient for a few minutes. Reevaluation at 1800 -She reports feeling well and ready for discharge. Redness to her face is lessening. She denies any itching at this time. Her daughter mentions that she is having a slight twitch of the muscle to her left upper lip. Her daughter states that that is new. Patient reports that it is not bothersome. 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 Patient, spouse, daughter all report that this is a baseline finding. We discussed muscle twitching and conservative treatments for that monitoring at home for that. Patient wishes to be discharged at this time. We discussed red flags for return to the ER.we discussed conservative treatments at home as well as red flags for worsening. Discharge Plan Discharge Patient Disposition: Home Clinical Impression: Allergic reaction Condition: Stable Prescriptions: No Action estradiol [Estrace] 0.01 % (0.1 mg/gram) cream 1 gm VAGINAL .weekly rosuvastatin [Crestor] 20 mg tablet 20 mg PO DAILY thyroid (pork) [[place] Thyroid] 60 mg tablet 60 mg PO DIRECTED Rx Instructions: added 15mg every other day. hydrocodone-acetaminophen 5-325 mg tablet 1 tab PO Q6H PRN Rx Instructions: dr dodson aspirin 81 mg tablet,chewable 81 mg PO DAILY hydrochlorothiazide 25 mg tablet 12.5 mg PO DAILY potassium gluconate 595 mg (99 mg) tablet 595 mg PO DAILY magnesium 250 mg tablet 250 mg PO DAILY cholecalciferol (vitamin D3) 50 mcg (2,000 unit) capsule 50 mcg PO DAILY Galzin 25 mg (zinc) capsule 25 mg PO DAILY metoprolol tartrate 25 mg tablet 12.5 mg PO BID Qty: 90 3RF prednisone 10 mg tablet See Rx Instructions PO .COMPLEX PRN (Reason: joint pain) Qty: 30 1RF Rx Instructions: take 1 or 2 tab daily for 3-7 days prn joint pain flare PO PRN; Discharge Orders: Discharge ED (Routine); Ordered 12/08/21 Ordered By: Oxana Stevenson Referrals: Sarina Dodson MD [Primary Care Provider] - Discharge Diet: Usual diet Discharge Activity: Resume usual activity Patient Instructions: Allergic Reaction Activity Restrictions/Additional Instructions: Use Benadryl as needed. You received a dose of steroid in the ER tonight. As we discussed, I recommend 10 mg p.o. prednisone daily for the next 3 days starting tomorrow. I did not send your prescription as you were going to use them medication that you already have at home. Return to the ER for any new or worsening symptoms, shortness of breath, swelling of the mouth, face, tongue. Follow-up with your primary care provider as needed. Coding Level of Care Code ED Dental Insurance Biller for Fortunato Fwgema Exam Expanded Problem Focused
[2021-12-08] MEDS: dexamethasone 10 mg/mL INJ 4 MG IM (17:13)
--- NOTE | 2021-12-08 17:22 | PC.NURSE ---
Pt was watched for 20 mins after injection for reactions
[2021-12-08 18:11] VITALS: BP 152/81; O2SAT 97
== END 2021-12-08 18:12 | disposition home or self-care (01) ==
PROVIDERS: Emergency Provider Nurse Practitioner Family; PCP Internal Medicine
DX: L27.0 Generalized skin eruption due to drugs and medicaments taken internally (principal); T39.315A Adverse effect of propionic acid derivatives, initial encounter; R29.810 Facial weakness; R25.3 Fasciculation; Z86.69 Personal history of other diseases of the nervous system and sense organs; Z95.5 Presence of coronary angioplasty implant and graft; Z79.82 Long term (current) use of aspirin; Z79.891 Long term (current) use of opiate analgesic; Z79.52 Long term (current) use of systemic steroids; Z79.899 Other long term (current) drug therapy
CPT/HCPCS: 96372; 99284; J1100

== ENCOUNTER 2021-12-11 09:07 | Emergency (ER) | payer MEDICARE, BC, SELFPAY ==
[2021-12-11 09:24] VITALS: BP 149/97; PULSE 65; RESP 16; TEMP 36.4; O2SAT 96; BMI 23.8
--- NOTE | 2021-12-11 09:26 | XRR_ITS ---
PROCEDURE INFORMATION: Exam: XR Chest Exam date and time: 12/11/2021 9:51 AM Age: 71 years old Clinical indication: Pain; Other: Palpations TECHNIQUE: Imaging protocol: Radiologic exam of the chest. Views: 1 view. COMPARISON: CT chest con [id number] 11/02/2021 2:38 PM FINDINGS: Lungs: Fibrotic changes are seen in the periphery of the lungs bilaterally. No superimposed focal airspace consolidation. Pleural spaces: Unremarkable. No pleural effusion. No pneumothorax. Heart/Mediastinum: Unremarkable. No cardiomegaly. Bones/joints: Unremarkable. XR/XR chest 1V portable [id number] IMPRESSION: Background of pulmonary fibrosis with no acute cardiopulmonary abnormality.
--- NOTE | 2021-12-11 09:27 | ECG_ITS ---
[facility] Test Date: 2021-12-11 Pat Name: Tonia Figueroa Department: Room: Gender: Female Starter Cup Powder Mixer: : [id number] Requested By: Wiliam Mendez Order Number: [id number] Jill MD: Chaim Whittington M.D. Measurements Intervals [place] Rate: 62 P: 53 AR: 169 QRS: -24 QRSD: 89 T: 43 QT: 399 QTc: 407 Interpretive Statements SINUS RHYTHM BORDERLINE LEFT AXIS DEVIATION [QRS AXIS < -20] MODERATE VOLTAGE CRITERIA FOR LVH, CONSIDER NORMAL VARIANT [MEETS CRITERIA IN ONE OF: R(aVL), S(V1), R(V5), R(V5/V6)+S(V1)] No previous ECG available for comparison Electronically Signed On 12-11-2021 13:17:02 CDT by Chaim Whittington M.D. [id number] f
[2021-12-11 09:52] VITALS: BP 162/94; PULSE 66; RESP 16; O2SAT 96
[2021-12-11 09:54] LABS: Basophils # 0.1 10^3/uL (0.0-0.1); Basophils % 0.7 %; Eosinophils # 0.3 10^3/uL (0.0-0.8); Eosinophils % 2.4 %; Hematocrit 44.9 % (37.0-47.0); Lymphocytes # 2.3 10^3/uL (0.8-4.8); Lymphocytes % 22.5 %; Mean Corpuscular HGB Conc 31.2 g/dL (30.0-36.0); Mean Corpuscular Hemoglobin 28.2 pg (28.0-34.0); Mean Corpuscular Volume 90.5 fl (81-99); Mean Platelet Volume 12.4 fL (7.4-10.4); Monocytes % 9.4 %; Neutrophils # 6.63 10^3/uL (1.8-7.7); Neutrophils % 64.7 %; Nucleated Red Blood Cells % 0 %; Platelet Count 203 10^3/cmm (130-400); Red Blood Count 4.96 10^6/uL (4.1-5.3); Red Cell Distribution Width 12.9 % (12.1-15.1); White Blood Count 10.3 10^3/uL (4.0-10.0)
--- NOTE | 2021-12-11 09:56 | PC.NURSE ---
Patient resting in bed. Patient co of racing heart beat around midnight and that it last until 7am. BP at home was 170s/100s with racing heart beat. Patient then had 2 bowel movements and after that she states the racing heart subsided. BP now is 162/94 and HR 66.
--- NOTE | 2021-12-11 10:08 | PC.NURSE ---
Patient has non labored breathing with equal chest rise. Skin is warm and pink. Call light within reach. No needs at this time.
[2021-12-11 10:09] LABS: Troponin(5th) Baseline 24 ng/L (0-10)
[2021-12-11 10:15] LABS: Alanine Aminotransferase 15 U/L (0-33); Albumin Level 4.1 g/dL (3.5-5.2); Alkaline Phosphatase 68 U/L (35-105); Anion Gap 16.5 (5-19); Aspartate Amino Transferase 18 U/L (0-32); Blood Urea Nitrogen 24 mg/dL (8-23); Calcium 9.5 mg/dL (8.5-10.5); Carbon Dioxide 26 mmol/L (22-29); Chloride 105 mmol/L (98-107); Globulin 3.2 g/dL (1.3-4.6); Glucose 139 mg/dL (65-115); Magnesium 1.6 mg/dL (1.7-2.3); Osmolality Calculated 304 mOsm/kg (285-295); Potassium 3.5 mmol/L (3.5-5.1); Sodium 144 mmol/L (136-145); Total Bilirubin 0.5 mg/dL (0.15-1.2); Total Protein 7.3 g/dL (6.6-8.7)
--- NOTE | 2021-12-11 10:20 | W.ED.ARRPALP ---
HPI - Arrhythmia/Palpitations General: Chief Complaint: Arrhythmia/Palpitations Stated Complaint: racing heart, high bp Time Seen by Provider: 12/11/21 09:20 History of Present Illness: 71-year-old female presents with complaints of her heart racing and her blood pressure went little high. Patient reports that started during the night last night and lasted approximately 8 hours. That she reports that it got as high as the 160s 170s. That she had a Valsalva at home which lowered back down. Patient presents today because she has a history of 1 cardiac stent and reports that this is how her previous heart attack presented. At this time she not having any pain. She is feeling better. Patient denies any cough, fevers chills nausea or vomiting. She did have a little bit of shortness of breath at the time. Associated symptoms: Deny anxiety Review of Systems Const: Denies: fever(s) or chills Card: Reports: palpitations and irregular heart rhythm Resp: Denies: productive cough, non-productive cough or wheezing : Denies: flank pain, difficulty voiding or dysuria Musc: Denies: neck pain or back pain Skin/Breast: Denies: rash Neuro: Denies: headache(s) or numbness in extremities Psych: Denies: anxiety or depression Endo: Denies: polyuria or polydipsia PFSH ED PFSH: Medical History ASHD (arteriosclerotic heart disease) Dactylitis of toe High risk medication use Hypercholesteremia Hypertension ILD (interstitial lung disease) Immunization counseling Inflammatory arthritis Osteoarthritis of hands, bilateral Pulmonary fibrosis Rheumatoid arthritis SOB (shortness of breath) Systemic sclerosis with limited cutaneous involvement Surgical History H/O heart artery stent History of ankle surgery x3 History of bilateral knee replacement History of bladder repair surgery x2 History of hysterectomy S/P knee replacement bilat knee replacement Family History Mother CAD (coronary artery disease) Diabetes Hypertension Father Cancer Hyperlipidemia Hypertension Sister Diabetes Denies family history of Rheumatoid arthritis Lupus Clotting disorder Dementia Psychiatric illness Chronic kidney disease (CKD) Suicide Anesthesia complication Bleeding disorder Family history of premature coronary artery disease Lung disease Stroke Social History Smoking and tobacco status: former smoker Alcohol intake: never Lives independently: Yes Current occupational status: retired History of recent travel: No Physical Exam Const: COMMON NORMALS: no acute distress, average body habitus and patient oriented x3 HENMT: COMMON NORMALS: normocephalic, hearing grossly normal bilaterally and moist oral mucous membranes HEAD & SCALP: normocephalic Resp: COMMON NORMALS: normal respiratory effort, No use of accessory muscles and clear to auscultation bilaterally AUSCULTATION: clear to auscultation bilaterally Cardio: COMMON NORMALS: regular rate, regular rhythm and Peripheral pulses 2+ throughout RATE: regular rate RHYTHM: regular rhythm PERIPHERAL PULSES: Peripheral pulses 2+ throughout GI: COMMON NORMALS: Normal to inspection, nondistended, normoactive bowel sounds present, Soft to palpation and non-tender PALPATION: Yes Soft to palpation Extremity: COMMON NORMALS: normal to inspection, full ROM and capillary refill normal Neuro: COMMON NORMALS: patient oriented x3 Psych: COMMON NORMALS: mental status grossly normal, Normal thought process present, cooperative and speech normal SPEECH: Yes normal speech THOUGHT PROCESS: Normal thought process present Skin: COMMON NORMALS: no rashes or lesions noted GENERAL SKIN EXAM: no rashes or lesions noted Course Vital Signs: Vital signs: Vital Signs Temperature 97.6 F 12/11/21 09:24 Pulse Rate 66 12/11/21 09:52 Respiratory Rate 16 12/11/21 09:52 Blood Pressure 162/94 12/11/21 09:52 Pulse Oximetry 96 12/11/21 09:52 MDM - Arrhythmia/Palpitations Medical Decision Making Patient with no symptoms while in the ER. Patient with 2 negative troponins 2 negative EKGs. 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 They will follow-up with her this week for recheck on outpatient basis. Patient stable and discharged Lab Data : 12/11/21 09:45 12/11/21 09:45 Radiology Impressions Chest X-Ray 12/11/21 09:26 IMPRESSION: Background of pulmonary fibrosis with no acute cardiopulmonary abnormality. Laboratory Results WBC 10.3 10^3/uL (4.0-10.0) H 12/11/21 09:45 RBC 4.96 10^6/uL (4.1-5.3) 12/11/21 09:45 Hgb 14.0 g/dL (11.5-15.3) 12/11/21 09:45 Hct 44.9 % (37.0-47.0) 12/11/21 09:45 MCV 90.5 fl (81-99) 12/11/21 09:45 MCH 28.2 pg (28.0-34.0) 12/11/21 09:45 MCHC 31.2 g/dL (30.0-36.0) 12/11/21 09:45 RDW 12.9 % (12.1-15.1) 12/11/21 09:45 Plt Count 203 10^3/cmm (130-400) 12/11/21 09:45 MPV 12.4 fL (7.4-10.4) H 12/11/21 09:45 Neut % (Auto) 64.7 % 12/11/21 09:45 Lymph % (Auto) 22.5 % 12/11/21 09:45 [place] % (Auto) 9.4 % 12/11/21 09:45 Eos % (Auto) 2.4 % 12/11/21 09:45 Baso % (Auto) 0.7 % 12/11/21 09:45 Neut # (Auto) 6.63 10^3/uL (1.8-7.7) 12/11/21 09:45 Lymph # (Auto) 2.3 10^3/uL (0.8-4.8) 12/11/21 09:45 [place] # (Auto) 1.0 10^3/uL (0.2-0.9) H 12/11/21 09:45 Eos # (Auto) 0.3 10^3/uL (0.0-0.8) 12/11/21 09:45 Baso # (Auto) 0.1 10^3/uL (0.0-0.1) 12/11/21 09:45 Nucleated RBC % (auto) 0 % 12/11/21 09:45 Nucleated RBCs # 0.0 /100WBC 12/11/21 09:45 Sodium 144 mmol/L (136-145) 12/11/21 09:45 Potassium 3.5 mmol/L (3.5-5.1) 12/11/21 09:45 Chloride 105 mmol/L (98-107) 12/11/21 09:45 Carbon Dioxide 26 mmol/L (22-29) 12/11/21 09:45 Anion Gap 16.5 (5-19) 12/11/21 09:45 BUN 24 mg/dL (8-23) H 12/11/21 09:45 Creatinine 1.1 mg/dL (0.5-0.9) H 12/11/21 09:45 GFR Calculation Not Reportable 12/11/21 09:45 Glucose 139 mg/dL (65-115) H 12/11/21 09:45 Calculated Osmolality 304 mOsm/kg (285-295) H 12/11/21 09:45 Calcium 9.5 mg/dL (8.5-10.5) 12/11/21 09:45 Magnesium 1.6 mg/dL (1.7-2.3) L 12/11/21 09:45 Total Bilirubin 0.5 mg/dL (0.15-1.2) 12/11/21 09:45 AST 18 U/L (0-32) 12/11/21 09:45 ALT 15 U/L (0-33) 12/11/21 09:45 Alkaline Phosphatase 68 U/L (35-105) 12/11/21 09:45 Troponin T Baseline 24 ng/L (0-10) H 12/11/21 09:45 Troponin T 120 Minute 22.04 ng/L (0-10) H 12/11/21 12:23 Delta Troponin T -1.96 ABS# (0-10) L 12/11/21 12:23 Total Protein 7.3 g/dL (6.6-8.7) 12/11/21 09:45 Albumin 4.1 g/dL (3.5-5.2) 12/11/21 09:45 Globulin 3.2 g/dL (1.3-4.6) 12/11/21 09:45 EKG Data EKG 1: I personally reviewed and interpreted this EKG as follows: EKG interpretation date: 12/11/21 EKG interpretation time: 09:30 Interpretation: hr 62, pr 169, qrs 89, qtc 404, no acute st or t wave changes Other EKG comments: Chest X-Ray 12/11/21 09:26 IMPRESSION: Background of pulmonary fibrosis with no acute cardiopulmonary abnormality. EKG 2: I personally reviewed and interpreted this EKG as follows: EKG interpretation date: 12/11/21 EKG interpretation time: 11:33 Interpretation: hr 49, pr 164, qrs 93, qtc 400 sinus bradycardia otherwise unchanged EKG Other EKG comments: Chest X-Ray 12/11/21 09:26 IMPRESSION: Background of pulmonary fibrosis with no acute cardiopulmonary abnormality. Discharge Plan Discharge Patient Disposition: Home Clinical Impression: Palpitations Condition: Stable Prescriptions: No Action estradiol [Estrace] 0.01 % (0.1 mg/gram) cream 1 gm VAGINAL .weekly rosuvastatin [Crestor] 20 mg tablet 20 mg PO DAILY thyroid (pork) [[place] Thyroid] 60 mg tablet 60 mg PO DIRECTED Rx Instructions: added 15mg every other day. hydrocodone-acetaminophen 5-325 mg tablet 1 tab PO Q6H PRN Rx Instructions: dr dodson aspirin 81 mg tablet,chewable 81 mg PO DAILY hydrochlorothiazide 25 mg tablet 12.5 mg PO DAILY potassium gluconate 595 mg (99 mg) tablet 595 mg PO DAILY magnesium 250 mg tablet 250 mg PO DAILY cholecalciferol (vitamin D3) 50 mcg (2,000 unit) capsule 50 mcg PO DAILY Galzin 25 mg (zinc) capsule 25 mg PO DAILY metoprolol tartrate 25 mg tablet 12.5 mg PO BID Qty: 90 3RF prednisone 10 mg tablet See Rx Instructions PO .COMPLEX PRN (Reason: joint pain) Qty: 30 1RF Rx Instructions: take 1 or 2 tab daily for 3-7 days prn joint pain flare PO PRN; Discharge Orders: Discharge ED (Routine); Ordered 12/11/21 Ordered By: Wiliam Mendez Referrals: Sarina Dodson MD [Primary Care Provider] - Discharge Diet: Usual diet Discharge Activity: Resume usual activity Patient Instructions: Opioid Safety Activity Restrictions/Additional Instructions: Please call the cardiology office in the morning and they will give an appointment time in the next day or so to be seen for further outpatient evaluation Coding Level of Care Code ED Custom Motorcycle Painter for Chg Fwd Exam Comprehensive
--- NOTE | 2021-12-11 11:33 | ECG_ITS ---
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 Measurements Intervals [place] Rate: 49 P: 62 CA: 164 QRS: -22 QRSD: 93 T: 50 QT: 430 QTc: 390 Interpretive Statements SINUS BRADYCARDIA BORDERLINE LEFT AXIS DEVIATION [QRS AXIS < -20] MINIMAL VOLTAGE CRITERIA FOR LVH, CONSIDER NORMAL VARIANT [MEETS CRITERIA IN ONE OF: R(aVL), S(V1), R(V5), R(V5/V6)+S(V1)] NONSPECIFIC T-WAVE ABNORMALITY Compared to ECG 12/11/2021 09:30:24 T-wave abnormality now present Sinus rhythm no longer present Electronically Signed On 12-11-2021 13:25:15 CDT by Chaim Whittington M.D. [id number]
[2021-12-11 12:50] LABS: Troponin 5 2HR 22.04 ng/L (0-10)
[2021-12-11 12:57] LABS: Troponin 5 2HR Delta -1.96 ABS# (0-10)
== END 2021-12-11 13:27 | disposition home or self-care (01) ==
PROVIDERS: Emergency Provider Student in an Organized Health Care Education/Training Program; PCP Internal Medicine
DX: R00.2 Palpitations (principal); I10 Essential (primary) hypertension
CPT/HCPCS: 36415; 71045; 80053; 83735; 84484; 85025; 93005; 99285

== ENCOUNTER → 2021-12-16 08:42 | Outpatient (BNVA) | payer MEDICARE, BC, SELFPAY | PROVIDERS: PCP Internal Medicine; Visit Provider Nurse Practitioner Family | DX: I10 Essential (primary) hypertension (principal); I25.10 Atherosclerotic heart disease of native coronary artery without angina pectoris; Z87.891 Personal history of nicotine dependence | CPT/HCPCS: 99213 ==

== ENCOUNTER → 2021-12-22 08:51 | Outpatient (BNVA) | payer MEDICARE, BC, SELFPAY | PROVIDERS: PCP Internal Medicine; Visit Provider Internal Medicine Pulmonary Disease | DX: J84.9 Interstitial pulmonary disease, unspecified (principal); I25.10 Atherosclerotic heart disease of native coronary artery without angina pectoris; M06.9 Rheumatoid arthritis, unspecified; M34.9 Systemic sclerosis, unspecified; Z87.891 Personal history of nicotine dependence; Z95.5 Presence of coronary angioplasty implant and graft; Z82.61 Family history of arthritis; R76.8 Other specified abnormal immunological findings in serum; J47.9 Bronchiectasis, uncomplicated | CPT/HCPCS: 99204 ==

== ENCOUNTER → 2021-12-30 10:32 | Outpatient (BNVA) | payer MEDICARE, BC, SELFPAY | PROVIDERS: PCP Internal Medicine; Visit Provider Nurse Practitioner Family | DX: I25.10 Atherosclerotic heart disease of native coronary artery without angina pectoris (principal); Z95.5 Presence of coronary angioplasty implant and graft; Z87.891 Personal history of nicotine dependence; I10 Essential (primary) hypertension | CPT/HCPCS: 99214 ==

== ENCOUNTER 2022-01-02 10:43 | Outpatient (CLI) | payer MEDICARE, BC, SELFPAY ==
--- NOTE | 2022-01-02 11:00 | USCV_ITS ---
Tonia Figueroa Age: 71 Gender: F : 1950 Exam Date: 01/02/2022 11:17 Ordering Phys: Julien Nails MD Technologist: Meseret Arriola Exam Location: [facility] [place] Indication: Pulmonary hypertension BP: 118 / 88 HR: 58 Rhythm: Sinus Technical Quality: Adequate MEASUREMENTS (Male / Female) Normal Values 2D ECHO LV Diastolic Diameter PLAX 4.5 cm 4.2 - 5.9 / 3.9 - 5.3 cm LV Systolic Diameter PLAX 3.3 cm IVS Diastolic Thickness 1.1 cm 0.6 - 1.0 / 0.6 - 0.9 cm IVS Systolic Thickness 1.4 cm LVPW Diastolic Thickness 0.8 cm 0.6 - 1.0 / 0.6 - 0.9 cm LVPW Systolic Thickness 1.3 cm LVOT Diameter 2.0 cm LV Ejection Fraction 2D Teich 51.0 % LV Ejection Fraction MOD 2C 62.4 % LV Ejection Fraction 2C AL 61.4 % LA Diameter 2.5 cm LA Width 2.7 cm LA Height 4.5 cm RA Width 3.5 cm RA Height 4.8 cm Aorta at Sinotubular Diameter 3.0 cm IVC Diameter 1.2 cm M-MODE MV E Point Septal Separation 1.0 cm DOPPLER AV Peak Velocity 109.0 cm/s LVOT Peak Velocity 73.0 cm/s AV Area Cont Eq vti 2.1 cm squared AV Area Cont Eq pk 2.2 cm squared MV Peak Velocity 91.0 cm/s MV Area PHT 2.7 cm squared Mitral E to A Ratio 0.9 MV E' Velocity 34.0 cm/s Mitral E to MV E' Ratio 8.5 Mitral E to LV E' Lateral Ratio 7.2 Mitral E to LV E' Septal Ratio 10.4 TR Peak Velocity 54.0 cm/s TR Peak Gradient 1.2 mmHg Right Atrial Pressure 3.0 mmHg Pulmonary Artery Systolic Pressu 4.2 mmHg PV Peak Velocity 95.0 cm/s RV Acceleration Time 0.1 s RV Ejection Time 0.3 s RV AcT/ET 0.3 FINDINGS Left Ventricle Normal left ventricular size, systolic function and wall thickness, with no regional wall motion abnormalities. Left ventricular ejection fraction is estimated at 60 %. Normal diastolic function. Right Ventricle Normal right ventricular size and systolic function. Normal right ventricular systolic function. Right Atrium Normal right atrial size. Left Atrium Normal left atrial size. Mitral Valve Structurally normal mitral valve. No mitral valve stenosis. No mitral valve regurgitation. Aortic Valve Structurally normal trileaflet aortic valve. No aortic valve stenosis. No aortic valve regurgitation. Tricuspid Valve Structurally normal tricuspid valve. Trace tricuspid valve regurgitation. Pulmonic Valve Structurally normal pulmonic valve. No pulmonary valve stenosis. Trace pulmonary valve regurgitation. Pericardium No pericardial effusion. Aorta Normal size aortic root and proximal ascending aorta. IVC Normal IVC dimension with >50% respiratory change of the inferior vena cava. CONCLUSIONS 1. Normal left ventricular size, systolic function and wall thickness, with no regional wall motion abnormalities. Left ventricular ejection fraction is estimated at 60 %. Normal diastolic function. 2. Normal right ventricular size and systolic function. 3. Normal pulmonary artery pressure. 4. No significant valvular abnormality. 5. No prior similar studies to compare. Stacie Greer MD (Electronically Signed) Final Date: 05 January 2022 15:25 S
== END 2022-01-02 10:44 | disposition home or self-care (01) ==
PROVIDERS: PCP Internal Medicine; Visit Provider Internal Medicine Pulmonary Disease
DX: J84.9 Interstitial pulmonary disease, unspecified (principal); I25.10 Atherosclerotic heart disease of native coronary artery without angina pectoris; I27.20 Pulmonary hypertension, unspecified
CPT/HCPCS: 93306

== ENCOUNTER 2022-01-02 14:42 | Outpatient (RCR) | payer SELFPAY | END 2022-01-30 23:59 | disposition home or self-care (01) | LOC: CR 14:42 | PROVIDERS: PCP Internal Medicine; Referring Provider Internal Medicine; Visit Provider Internal Medicine | DX: Z95.5 Presence of coronary angioplasty implant and graft (principal) ==

== ENCOUNTER 2022-01-05 20:40 | Emergency (ER) | payer MEDICARE, BC, SELFPAY ==
[2022-01-05 21:39] VITALS: BP 165/90; PULSE 72; RESP 16; TEMP 36.6; BMI 23.6
--- NOTE | 2022-01-05 21:49 | ECG_ITS ---
[facility] Test Date: 2022-01-05 Pat Name: Tonia Figueroa Department: Room: Gender: Female Psychiatry Instructor: : 1950 Requested By: Ila Lerma Order Number: [id number] Jill MD: Chaim Whittington M.D. Measurements Intervals [place] Rate: 51 P: 60 PA: 154 QRS: -47 QRSD: 94 T: 54 QT: 451 QTc: 417 Interpretive Statements SINUS BRADYCARDIA INCOMPLETE RIGHT BUNDLE BRANCH BLOCK [90+ ms QRS DURATION, TERMINAL R IN V1/V2, 40+ ms S IN I/aVL/V4/V5/V6] LEFT ANTERIOR FASCICULAR BLOCK [QRS AXIS <= -45, QR IN I, RS IN II] NONSPECIFIC ST & T-WAVE ABNORMALITY Compared to ECG 12/11/2021 11:33:33 Incomplete right bundle-branch block now present Left anterior fascicular block now present T-wave abnormality still present Electronically Signed On 01-06-2022 14:48:27 CDT by Chaim Whittington M.D. [id number]
--- NOTE | 2022-01-05 21:52 | XRR_ITS ---
PROCEDURE INFORMATION: Exam: XR Chest Exam date and time: 01/05/2022 10:16 PM Age: 71 years old Clinical indication: Condition or disease; Other: High BP; Additional info: Chest pain TECHNIQUE: Imaging protocol: Radiologic exam of the chest. Views: 1 view. COMPARISON: CR (CHEST, ) 12/11/2021 9:51 AM FINDINGS: Lungs: Emphysematous changes. Pleural spaces: Unremarkable. No pleural effusion. No pneumothorax. Heart/Mediastinum: Unremarkable. No cardiomegaly. Bones/joints: Unremarkable. XR/XR chest 1V portable [id number] IMPRESSION: Emphysematous changes, negative for infiltrate
--- NOTE | 2022-01-05 22:14 | ED_ITS ---
HPI - Chest Pain General: Chief Complaint: Chest Pain Stated Complaint: High B/P Time Seen by Provider: 01/05/22 22:08 Source: patient Mode of arrival: ambulatory Limitations: no limitations History of Present Illness: 71-year-old female states that she been having intermittent chest pains along with hypertension over the last week. She had seen her administrative staff supervisor nurse practitioner who is set her up with a stress test on the she had an echo on the third that was normal. She states that tonight her blood pressure spiked again and having some palpitations she denies any pain currently. Denies any nausea or shortness of breath. Associated symptoms: Reports palpitations; Deny abdominal pain, dyspnea, fever(s), nausea or vomiting Review of Systems Const: Denies: fever(s), chills, body aches or change in appetite Eyes: Denies: blurry vision or eye discomfort ENMT: Denies: throat pain or dental pain Card: Reports: chest pain and palpitations Resp: Denies: dyspnea GI: Denies: abdominal pain, nausea, vomiting or diarrhea : Denies: dysuria Musc: Denies: neck pain or back pain Skin/Breast: Denies: rash Neuro: Denies: headache(s) Psych: Denies: depression Jaquan/Lymph: Denies: easy bruising All/Imm: Denies: urticaria PFSH ED PFSH: Medical History ASHD (arteriosclerotic heart disease) Dactylitis of toe High risk medication use Hypercholesteremia Hypertension ILD (interstitial lung disease) Immunization counseling Inflammatory arthritis Osteoarthritis of hands, bilateral Pulmonary fibrosis Rheumatoid arthritis SOB (shortness of breath) Systemic sclerosis with limited cutaneous involvement Surgical History H/O heart artery stent History of ankle surgery x3 History of bilateral knee replacement History of bladder repair surgery x2 History of hysterectomy S/P knee replacement bilat knee replacement Family History Mother CAD (coronary artery disease) Diabetes Hypertension Father Cancer Hyperlipidemia Hypertension Sister Diabetes Denies family history of Rheumatoid arthritis Lupus Clotting disorder Dementia Psychiatric illness Chronic kidney disease (CKD) Suicide Anesthesia complication Bleeding disorder Family history of premature coronary artery disease Lung disease Stroke Social History Smoking and tobacco status: former smoker (46 years ago) Quit status (tobacco): has quit using tobacco Year quit tobacco: 1975 Former quit date comment: less than 1ppd for approx 10 years Alcohol intake: never Lives independently: Yes Current occupational status: retired History of recent travel: No Physical Exam Const: COMMON NORMALS: no acute distress, patient oriented x3 and healthy appearing HENMT: COMMON NORMALS: normocephalic and atraumatic HEAD & SCALP: normocephalic and atraumatic Eye: COMMON NORMALS: Equal, round and reactive pupils present and EOMs intact bilaterally PUPIL: Yes Equal, round and reactive pupils present Neck/C-Spine: COMMON NORMALS: full ROM and supple Chest: COMMONS NORMALS: normal inspection of the chest and normal palpation of entire chest wall Resp: COMMON NORMALS: normal respiratory effort, No retractions, No use of accessory muscles and clear to auscultation bilaterally AUSCULTATION: clear to auscultation bilaterally Cardio: COMMON NORMALS: regular rate, regular rhythm and No murmurs present (Cardio) RATE: regular rate RHYTHM: regular rhythm GI: COMMON NORMALS: Normal to inspection, nondistended, normoactive bowel sounds present, Soft to palpation, non-tender and no masses PALPATION: Yes Soft to palpation Extremity: COMMON NORMALS: normal to inspection and full ROM Neuro: COMMON NORMALS: patient oriented x3, moves all extremities and no focal motor deficits Psych: COMMON NORMALS: mental status grossly normal, Normal thought process present and cooperative THOUGHT PROCESS: Normal thought process present Skin: COMMON NORMALS: no rashes or lesions noted and no wounds GENERAL SKIN EXAM: no rashes or lesions noted Course Vital Signs: Vital signs: Vital Signs Temperature 97.8 F 01/05/22 21:39 Pulse Rate 52 L 01/05/22 23:46 Respiratory Rate 16 01/05/22 23:46 Blood Pressure 154/77 01/05/22 23:46 Pulse Oximetry 97 01/05/22 22:19 Oxygen Delivery Me thod 01/05/22 21:39 MDM - Chest Pain Medical Decision Making Patient presents here with chest pain she has been pain-free here initial repeat troponin are normal her recent echo was normal as well. She has a scheduled stress test on the she is to call her administrative staff supervisor in the morning I believe she is stable for discharge she return if worsening. Lab Data : 01/05/22 22:25 01/05/22 22: Radiology Impressions Chest X-Ray 01/05/22 21:52 IMPRESSION: Emphysematous changes, negative for infiltrate Laboratory Results WBC 9.3 10^3/uL (4.0-10.0) 01/05/22: RBC 4.92 10^6/uL (4.1-5.3) 01/05/22: Hgb 13.8 g/dL (11.5-15.3) 01/05/22: Hct 43.5 % (37.0-47.0) 01/05/22: MCV 88.4 fl (81-99) 01/05/22: MCH 28.0 pg (28.0-34.0) 01/05/22: MCHC 31.7 g/dL (30.0-36.0) 01/05/22: RDW 12.9 % (12.1-15.1) 01/05/22: Plt Count 206 10^3/cmm (130-400) 01/05/22: MPV 12.0 fL (7.4-10.4) H 01/05/22: Neut % (Auto) 69.4 % 01/05/22: Lymph % (Auto) 17.0 % 01/05/22: [place] % (Auto) 10.1 % 01/05/22: Eos % (Auto) 2.7 % 01/05/22: Baso % (Auto) 0.5 % 01/05/22: Neut # (Auto) 6.47 10^3/uL (1.8-7.7) 01/05/22: Lymph # (Auto) 1.6 10^3/uL (0.8-4.8) 01/05/22: [place] # (Auto) 0.9 10^3/uL (0.2-0.9) 01/05/22: Eos # (Auto) 0.3 10^3/uL (0.0-0.8) 10/06/22 22:25 Baso # (Auto) 0.1 10^3/uL (0.0-0.1) 01/05/22 22:25 Nucleated RBC % (auto) 0 % 01/05/22: Nucleated RBCs # 0.0 /100WBC 01/05/22 22:25 Sodium 142 mmol/L (136-145) 01/05/22 22:25 Potassium 3.7 mmol/L (3.5-5.1) 01/05/22 22:25 Chloride 100 mmol/L (98-107) 01/05/22 22:25 Carbon Dioxide 28 mmol/L (22-29) 01/05/22 22:25 Anion Gap 17.7 (5-19) 01/05/22 22: BUN 25 mg/dL (8-23) H 01/05/22 22:25 Creatinine 1.0 mg/dL (0.5-0.9) H 01/05/22 22:25 GFR Calculation Not Reportable 01/05/22: Glucose 151 mg/dL (65-115) H 01/05/22 22:25 Calculated Osmolality 301 mOsm/kg (285-295) H 01/05/22 22:25 Calcium 9.9 mg/dL (8.5-10.5) 01/05/22 22:25 Total Bilirubin 0.6 mg/dL (0.15-1.2) 01/05/22 22:25 AST 19 U/L (0-32) 01/05/22 22:25 ALT 16 U/L (0-33) 01/05/22 22:25 Alkaline Phosphatase 72 U/L (35-105) 01/05/22 22:25 Troponin T Baseline 12 ng/L (0-10) H 01/05/22 22:25 Troponin T 120 Minute 12.04 ng/L (0-10) H 01/05/22 23:36 Delta Troponin T 0.04 ABS# (0-10) 01/05/22 23:36 NT-Pro-B Natriuret Pep 98 pg/mL (0-125) 01/05/22 22:25 Total Protein 7.2 g/dL (6.6-8.7) 01/05/22 22:25 Albumin 4.2 g/dL (3.5-5.2) 01/05/22 22:25 Globulin 3.0 g/dL (1.3-4.6) 01/05/22 22:25 EKG Data EKG 1: I personally reviewed and interpreted this EKG as follows: EKG interpretation date: 01/05/22 EKG interpretation time: 22:24 Interpretation: sinus ruslan hr [address] or t wave abnormalities qrs 94 qtc 427 Discharge Plan Discharge Patient Disposition: Home Clinical Impression: Chest pain Condition: Stable Prescriptions: No Action estradiol [Estrace] 0.01 % (0.1 mg/gram) cream 1 gm VAGINAL .weekly rosuvastatin [Crestor] 20 mg tablet 20 mg PO DAILY thyroid (pork) [[place] Thyroid] 60 mg tablet 60 mg PO DIRECTED Rx Instructions: added 15mg every other day. hydrocodone-acetaminophen 5-325 mg tablet 1 tab PO Q6H PRN Rx Instructions: dr lim aspirin 81 mg tablet,chewable 81 mg PO DAILY hydrochlorothiazide 25 mg tablet 12.5 mg PO DAILY potassium gluconate 595 mg (99 mg) tablet 595 mg PO DAILY magnesium 250 mg tablet 250 mg PO DAILY cholecalciferol (vitamin D3) 50 mcg (2,000 unit) capsule 50 mcg PO DAILY Galzin 25 mg (zinc) capsule 25 mg PO DAILY nitroglycerin 0.4 mg tablet, sublingual 0.4 mg sublingual Q5M PRN (Reason: chest pain) Qty: 30 3RF Rx Instructions: do not exceed 3 doses per episode metoprolol tartrate 25 mg tablet 25 mg PO BID Qty: 120 3RF Rx Instructions: May take additional 1/2 tab of metoprolol for BP above 150 systolic, if heart rate greater than 60 bpm prednisone 10 mg tablet See Rx Instructions PO .COMPLEX PRN (Reason: joint pain) Qty: 30 1RF Rx Instructions: take 1 or 2 tab daily for 3-7 days prn joint pain flare PO PRN; Discharge Orders: Discharge ED (Routine); Ordered 01/06/22 Ordered By: Ila Lerma Referrals: Sarina Lim MD [Primary Care Provider] - Discharge Diet: Advance as tolerated Discharge Activity: Resume usual activity Patient Instructions: Chest Pain (ED) Coding Level of Care Code ED Share Dairy Farmer for Chg Fwd Exam Comprehensive
[2022-01-05 22:19] VITALS: BP 148/96; PULSE 58; RESP 16; O2SAT 97
[2022-01-05 22:29] LABS: Basophils # 0.1 10^3/uL (0.0-0.1); Basophils % 0.5 %; Eosinophils # 0.3 10^3/uL (0.0-0.8); Eosinophils % 2.7 %; Hematocrit 43.5 % (37.0-47.0); Hemoglobin 13.8 g/dL (11.5-15.3); Lymphocytes # 1.6 10^3/uL (0.8-4.8); Mean Corpuscular HGB Conc 31.7 g/dL (30.0-36.0); Mean Corpuscular Volume 88.4 fl (81-99); Monocytes # 0.9 10^3/uL (0.2-0.9); Monocytes % 10.1 %; Neutrophils # 6.47 10^3/uL (1.8-7.7); Neutrophils % 69.4 %; Nucleated Red Blood Cells % 0 %; Platelet Count 206 10^3/cmm (130-400); Red Blood Count 4.92 10^6/uL (4.1-5.3); Red Cell Distribution Width 12.9 % (12.1-15.1); White Blood Count 9.3 10^3/uL (4.0-10.0)
[2022-01-05 22:48] LABS: Troponin(5th) Baseline 12 ng/L (0-10)
[2022-01-05 22:58] LABS: Alanine Aminotransferase 16 U/L (0-33); Albumin Level 4.2 g/dL (3.5-5.2); Alkaline Phosphatase 72 U/L (35-105); Anion Gap 17.7 (5-19); Aspartate Amino Transferase 19 U/L (0-32); Blood Urea Nitrogen 25 mg/dL (8-23); Calcium 9.9 mg/dL (8.5-10.5); Carbon Dioxide 28 mmol/L (22-29); Chloride 100 mmol/L (98-107); Glucose 151 mg/dL (65-115); NT Pro B Type Natriuretic Pept 98 pg/mL (0-125); Osmolality Calculated 301 mOsm/kg (285-295); Potassium 3.7 mmol/L (3.5-5.1); Sodium 142 mmol/L (136-145); Total Bilirubin 0.6 mg/dL (0.15-1.2); Total Protein 7.2 g/dL (6.6-8.7)
[2022-01-05 23:46] VITALS: BP 154/77; PULSE 52; RESP 16
[2022-01-05 23:58] LABS: Troponin 5 2HR 12.04 ng/L (0-10)
[2022-01-05 23:59] LABS: Troponin 5 2HR Delta 0.04 ABS# (0-10)
[2022-01-06 00:08] VITALS: BP 124/72; PULSE 50; RESP 16; O2SAT 98
== END 2022-01-06 00:18 | disposition home or self-care (01) ==
PROVIDERS: Emergency Provider Emergency Medicine; PCP Internal Medicine
DX: R07.9 Chest pain, unspecified (principal); Z79.82 Long term (current) use of aspirin; Z87.891 Personal history of nicotine dependence; I10 Essential (primary) hypertension
CPT/HCPCS: 71045; 80053; 83880; 84484; 85025; 93005; 99285

== ENCOUNTER 2022-01-17 09:44 | Outpatient (CLI) | payer MEDICARE, BC, SELFPAY ==
[2022-01-17 09:57] VITALS: BMI 23.6
--- NOTE | 2022-01-17 10:34 | ECG_ITS ---
[facility] Test Date: 2022-01-17 Pat Name: Tonia Figueroa Department: Room: Gender: Female Screen Printing Cloth Spreader: Brissa Zaragoza : 1950 Requested By: Sandy Garcia Order Number: [id number] Jill MD: Stacie Greer M.D. Interpretive Statements NAME OF STUDY: EXERCISE SESTAMIBI STRESS TEST INDICATION: Chest Pain Baseline blood pressure of 154/103 mm Hg, heart rate of 94 beats per minute and oxygen saturation of 92% . EKG showed normal sinus rhythm with normal axis with isolated PVCs. Poor anterior R wave progression. Nonspecific ST depression. The patient exercised for 4 minutes 19 seconds on a standard Vicente protocol. Patient attained a maximum heart rate of 164 beats per minute(111% of the maximum predicted heart rate) with a blood pressure at the peak exercise of 150/111 mm Hg. The EKG at the peak exercise revealed sinus tachycardia with 1 mm upsloping to horizontal ST depression in V4 to V6. Patient did not have any chest pain or any significant arrhythmis with the exercise During the recovery phase, there were no new changes. Blood pressure at the end of the recovery phase was 133/101 mm Hg with a heart rate of 97 beats per minute. CONCLUSION: 1. Equivocal EKG response to treadmill exercise. 2. No exercise-induced chest pain or cardiac arrhythmia 3. Good exercise tolerance, attained a maximum of 7 METs. 4. Baseline hypertension with normal response to exercise. 5. Perfusion scan will be documented separately. Electronically Signed On 01-20-2022 14:43:03 CDT by Stacie Greer M.D. [id number]
--- NOTE | 2022-01-17 10:35 | NMCV_ITS ---
MT olivier perf SPECT r/s* [id number] Tonia Figueroa Age: 71 Gender: F : 1950 Exam Date: 01/17/2022 11:03 Ordering Phys: Sandy Garcia Technologist: GAURANG Dennison Exam Location: [facility] Indications: ATHEROSCLEROTIC HEART DISEASE OF [place] CORONARY ARTERY STRESS TEST Please see separate stress test report in [facility] for full findings IMAGE PROTOCOL Rest/Stress 1 Exercise Day Radiopharmaceutical Dose (mCi) Administration Site Administered by Rest: Tc-99m 10.9 IV GAURANG Dangelo Sestamibi Stress:Tc-99m 32.4 IV GAURANG Dennison Sestamiflaco Rest: 17-Jan-2022 60 Discovery 630 Stress: 17-Jan-2022 30 Discovery 630 Radiopharmaceutical was injected at 100% maximum heart rate. Images obtained in supine and prone position. SPECT RESULTS Technical Quality: Excellent Raw Data Analysis: Normal Image Corrections: No attenuation or motion correction applied Summed Stress Score: 0 Summed Rest Score: 19 Summed Difference Score: 0 PERFUSION FINDINGS Large sized perfusion abnormality of moderate to severe severity of basal to apical inferior, basal to mid inferoseptal, apical septal, mid inferolateral, apical lateral and apical anterior mcqueen on rest images. There is improved tracer uptake on inferior anteroseptal and apical septal mcqueen. This is likely suggestive of attenuation artifact. FUNCTIONAL RESULTS (calculated via Gated SPECT) Stress Image LV EF (%): 61 Stress EDV (mL):59 TID: 0.81 Stress ESV (mL):23 FUNCTIONAL FINDINGS: The left ventricle is normal in size. Transient Ischemia Dilatation of 0.81. The left ventricular ejection fraction is normal with a value of 61%. There is possible hypokinesis of inferior wall. Normal end-diastolic end-systolic volumes. IMPRESSIONS 1. Large sized perfusion abnormality of basal to apical inferior, basal to mid inferoseptal, apical septal, mid inferolateral, apical lateral and apical anterior mcqueen with improved tracer uptake on stress images. 2. This likely represents attenuation artifact. 3. Overall left ventricular systolic function is normal with mild hypokinesis of inferior wall, LVEF=61%. 4. EKG portion of the study will be reported separately. Stacie Greer MD (Electronically Signed) Final Date: 20 January 2022 15:03 S
[2022-01-17 11:48] VITALS: BP 133/101; PULSE 97
== END 2022-01-17 09:45 | disposition home or self-care (01) ==
LOC: CDL 09:45
PROVIDERS: PCP Internal Medicine; Visit Provider Nurse Practitioner Family
DX: R07.9 Chest pain, unspecified (principal); I25.10 Atherosclerotic heart disease of native coronary artery without angina pectoris; Z95.5 Presence of coronary angioplasty implant and graft; R94.39 Abnormal result of other cardiovascular function study
CPT/HCPCS: 78452; 93017; A9500

== ENCOUNTER 2022-01-19 08:45 | Outpatient (CLI) | payer MEDICARE, BC, SELFPAY | END 2022-01-19 08:46 | disposition home or self-care (01) | LOC: RT 08:45 | PROVIDERS: PCP Internal Medicine; Visit Provider Internal Medicine Rheumatology | DX: M34.9 Systemic sclerosis, unspecified (principal); J84.9 Interstitial pulmonary disease, unspecified; Z86.16 Personal history of COVID-19 | CPT/HCPCS: 94010; 94726; 94729 ==

== ENCOUNTER → 2022-01-26 13:25 | Outpatient (BNVA) | payer MEDICARE, BC, SELFPAY | PROVIDERS: PCP Internal Medicine; Visit Provider Internal Medicine Cardiovascular Disease | DX: I25.10 Atherosclerotic heart disease of native coronary artery without angina pectoris (principal); J84.9 Interstitial pulmonary disease, unspecified; Z95.5 Presence of coronary angioplasty implant and graft; I10 Essential (primary) hypertension; E78.00 Pure hypercholesterolemia, unspecified; Z87.891 Personal history of nicotine dependence | CPT/HCPCS: 99214 ==

== ENCOUNTER 2022-01-31 10:10 | Outpatient (RCR) | payer SELFPAY | END 2022-03-01 23:59 | disposition home or self-care (01) | LOC: CR 10:10 | PROVIDERS: PCP Internal Medicine; Referring Provider Internal Medicine; Visit Provider Internal Medicine | DX: Z95.5 Presence of coronary angioplasty implant and graft (principal) | CPT/HCPCS: 99204 ==

== ENCOUNTER → 2022-01-31 13:56 | Outpatient (BNVA) | payer MEDICARE, BC, SELFPAY | PROVIDERS: PCP Internal Medicine; Visit Provider Internal Medicine Rheumatology | DX: M06.9 Rheumatoid arthritis, unspecified (principal); J84.9 Interstitial pulmonary disease, unspecified; Z71.85 Encounter for immunization safety counseling; Z79.899 Other long term (current) drug therapy; R76.8 Other specified abnormal immunological findings in serum; M15.9 Polyosteoarthritis, unspecified; Z87.891 Personal history of nicotine dependence; Z86.16 Personal history of COVID-19; Z82.61 Family history of arthritis | CPT/HCPCS: 99204 ==

== ENCOUNTER → 2022-02-08 11:35 | Outpatient (BNVA) | payer MEDICARE, BC, SELFPAY | PROVIDERS: PCP Internal Medicine; Visit Provider Internal Medicine Pulmonary Disease | DX: J84.9 Interstitial pulmonary disease, unspecified (principal); M06.9 Rheumatoid arthritis, unspecified; M34.9 Systemic sclerosis, unspecified; J47.9 Bronchiectasis, uncomplicated; Z87.891 Personal history of nicotine dependence; I25.10 Atherosclerotic heart disease of native coronary artery without angina pectoris; Z95.5 Presence of coronary angioplasty implant and graft; Z82.61 Family history of arthritis | CPT/HCPCS: 99214 ==

== ENCOUNTER 2022-02-12 14:36 | Inpatient (IN) | payer MEDICARE, BC, SELFPAY ==
[2022-02-12] VITALS (9 sets, daily range): BP systolic 108–157; BP diastolic 59–89; PULSE 59–112; RESP 14–18; TEMP 36.6–38.6; O2SAT 90–96; BMI 22.8
--- NOTE | 2022-02-12 14:42 | ECG_ITS ---
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 Measurements Intervals [place] Rate: 104 P: 26 NC: 144 QRS: -25 QRSD: 95 T: 128 QT: 317 QTc: 418 Interpretive Statements SINUS TACHYCARDIA BORDERLINE LEFT AXIS DEVIATION [QRS AXIS < -20] LEFT VENTRICULAR HYPERTROPHY AND ST-T CHANGE [VOLTAGE CRITERIA PLUS ST/T ABNORMALITY] Compared to ECG 01/05/2022 22:24:57 Left ventricular hypertrophy now present ST (T wave) deviation now present Sinus bradycardia no longer present Incomplete right bundle-branch block no longer present Left anterior fascicular block no longer present T-wave abnormality no longer present Electronically Signed On 02-12-2022 22:17:56 DIGITAL DIRECTOR by Iris Morel M.D. [id number]
--- NOTE | 2022-02-12 15:56 | ED_ITS ---
HPI - Chest Pain General: Chief Complaint: Chest Pain Stated Complaint: Left side pain Time Seen by Provider: 02/12/22 15:56 Source: patient Mode of arrival: ambulatory History of Present Illness: 71-year-old female presents to the emergency room with complaint of left thigh pain also some cough. Symptoms began worse when she coughs coughs are nonproductive no fever. No dysuria urgency or frequency. MD complaint: chest discomfort Timing of current episode: episodic Onset: other (With cough) Quality: tightness and aching Relieving factors: nothing Exacerbating factors: nothing Associated symptoms: Reports abdominal pain, dyspnea and fever(s); Deny diaphoresis, leg edema, nausea, palpitations, sense of impending doom, syn cope or vomiting Treatment prior to arrival: none Review of Systems Const: Reports: fever(s); Denies: chills, fatigue, malaise or diaphoresis Card: Reports: chest pain; Denies: palpitations or syncope Resp: Reports: dyspnea, non-productive cough and wheezing GI: Reports: abdominal pain; Denies: nausea or vomiting PFSH ED PFSH: Medical History ASHD (arteriosclerotic heart disease) Centromere antibody positive Dactylitis of toe Degenerative joint disease of ankle, left DVT (deep venous thrombosis) High risk medication use Hypercholesteremia Hypertension ILD (interstitial lung disease) Immunization counseling Inflammatory arthritis New onset a-fib Osteoarthritis of hands, bilateral Pleuritic pain Pneumonia Pulmonary fibrosis Rheumatoid arthritis Sepsis Sinus tachycardia SOB (shortness of breath) Systemic sclerosis with limited cutaneous involvement Surgical History H/O heart artery stent History of ankle surgery x3 History of bilateral knee replacement History of bladder repair surgery x2 History of hysterectomy S/P knee replacement bilat knee replacement Family History Mother CAD (coronary artery disease) Diabetes Hypertension Father Cancer Hyperlipidemia Hypertension Sister Diabetes Denies family history of Rheumatoid arthritis Lupus Clotting disorder Dementia Psychiatric illness Chronic kidney disease (CKD) Suicide Anesthesia complication Bleeding disorder Family history of premature coronary artery disease Lung disease Stroke Social History Smoking and tobacco status: former smoker Quit status (tobacco): has quit using tobacco Year quit tobacco: 1975 Former quit date comment: less than 1ppd for approx 10 years Alcohol intake: never Lives independently: Yes Current occupational status: retired History of recent travel: No Physical Exam Const: GENERAL APPEARANCE: cooperative and comfortable ORIENTATION/CONSCIOUSNESS: Yes awake, Yes oriented to person, Yes oriented to place and Yes oriented to time HENMT: COMMON NORMALS: normocephalic, atraumatic and hearing grossly normal bilaterally HEAD & SCALP: normocephalic and atraumatic Resp: AUSCULTATION: rhonchi and wheezes Cardio: COMMON NORMALS: regular rate, regular rhythm and No murmurs present (Cardio) RATE: regular rate RHYTHM: regular rhythm GI: COMMON NORMALS: Soft to palpation and No hepatosplenomegaly present AUSCULTATION: Yes normoactive bowel sounds PALPATION: Yes Soft to palpation, No Tenderness to palpation present (GI), No Guarding due to palpation present (GI) and Yes No hepatosplenomegaly present Extremity: COMMON NORMALS: normal to inspection, capillary refill normal, no clubbing, cyanosis or edema, no calf tenderness and no pedal edema Neuro: SENSORIUM/ORIENTATION: Yes oriented to person, Yes oriented to place and Yes oriented to time Skin: COMMON NORMALS: no rashes or lesions noted GENERAL SKIN EXAM: no rashes or lesions noted Course Vital Signs: Vital signs: Vital Signs Temperature 98.5 F 02/17/22 10:59 Pulse Rate 70 02/17/22 10:59 Respiratory Rate 16 02/17/22 10:59 Blood Pressure 144/82 02/17/22 10:59 Pulse Oximetry 96 02/17/22 10:59 Oxygen Delivery Me thod 02/17/22 07:18 MDM - Chest Pain Medical Decision Making Patient is not requiring oxygen but has a temp of 114 is tachycardic with an elevated T bili her lactate is pending her white count is 22,000 she has interstitial fibrosis of the lungs and has a left lower lobe pneumonia. Given her past medical history with her comorbidities and her presenting condition believe she will need to be admitted started on IV antibiotics. Medical Records I reviewed the patient's medical records. Lab Data I reviewed the patient's lab results. 02/17/22 04:20 02/17/22 04:20 Radiology Impressions Ribs X-Ray 02/12/22 15:57 IMPRESSION: 1. There is consolidation in the mid to lower left lung field most prominent at the lateral aspect of the left lung base. Differential includes pneumonia and or atelectasis. Underlying neoplasm cannot be excluded. 2. Prominent interstitial markings are similar to the prior study. 3. Hairline lucency through the lateral aspect of the left 10th rib is not well seen however raises concern for a nondisplaced fracture. 4. Elevation of the left hemidiaphragm. There is transposition of the splenic flexure colon superior to the spleen. Chest CT 02/12/22 17:33 IMPRESSION: 1. Left lower lobe pneumonia. 2. There are scattered regions of bilateral subpleural interstitial thickening, greatest at the lung bases, suggestive of pulmonary fibrosis. COMMENTS: Consistent with the [place] [employer]'s Incidental Findings Committee white paper (J Am Leyda Radiol 2018): Any incidental renal lesion less than 1 cm or classified as too small to characterize, or any incidental cystic renal lesion characterized as simple-appearing, is likely benign. No follow-up imaging is recommended for these lesions per consensus recommendations based on imaging criteria. Chest CTA 02/15/22 08:08 IMPRESSION: 1. No evidence of pulmonary embolus. 2. Circumferential pleural fluid throughout the LEFT lung with loculated pleural fluid along the LEFT fissure. This is progressed since February 12, 2022. 3. Small LEFT pleural effusion with airspace consolidation LEFT lower lobe progressed compared to previous consistent with pneumonia. 4. Additional chronic findings suggestive of pulmonary fibrosis. 5. No other significant interval changes. Chest Ultrasound 02/15/22 10:31 IMPRESSION: Very small left-sided pleural effusion with adjacent atelectatic lung. Insufficient fluid for thoracentesis. Laboratory Results WBC 22.6 10^3/uL (4.0-10.0) H 02/12/22 15:35 RBC 5.07 10^6/uL (4.1-5.3) 02/12/22 15:35 Hgb 14.0 g/dL (11.5-15.3) 02/12/22 15:35 Hct 44.5 % (37.0-47.0) 02/12/22 15:35 MCV 87.8 fl (81-99) 02/12/22 15:35 MCH 27.6 pg (28.0-34.0) L 02/12/22 15:35 MCHC 31.5 g/dL (30.0-36.0) 02/12/22 15:35 RDW 13.7 % (12.1-15.1) 02/12/22 15:35 Plt Count 246 10^3/cmm (130-400) 02/12/22 15:35 MPV 12.2 fL (7.4-10.4) H 02/12/22 15:35 Neut % (Auto) 84.6 % 02/12/22 15:35 Lymph % (Auto) 4.5 % 02/12/22 15:35 [place] % (Auto) 8.0 % 02/12/22 15:35 Eos % (Auto) 0.3 % 02/12/22 15:35 Baso % (Auto) 0.3 % 02/12/22 15:35 Neut # (Auto) 19.13 10^3/uL (1.8-7.7) H 02/12/22 15:35 Lymph # (Auto) 1.0 10^3/uL (0.8-4.8) 02/12/22 15:35 Pitt # (Auto) 1.8 10^3/uL (0.2-0.9) H 02/12/22 15:35 Eos # (Auto) 0.1 10^3/uL (0.0-0.8) 02/12/22 15:35 Baso # (Auto) 0.1 10^3/uL (0.0-0.1) 02/12/22 15:35 Nucleated RBC % (auto) 0 % 02/12/22 15:35 Nucleated RBCs # 0.0 /100WBC 02/12/22 15:35 Sodium 132 mmol/L (136-145) L 02/12/22 15:35 Potassium 3.6 mmol/L (3.5-5.1) 02/12/22 15:35 Chloride 92 mmol/L (98-107) L 02/12/22 15:35 Carbon Dioxide 27 mmol/L (22-29) 02/12/22 15:35 Anion Gap 16.6 (5-19) 02/12/22 15:35 BUN 20 mg/dL (8-23) 02/12/22 15:35 Creatinine 1.2 mg/dL (0.5-0.9) H 02/12/22 15:35 GFR Calculation Not Reportable 02/12/22 15:35 Glucose 224 mg/dL (65-115) H 02/12/22 15:35 Calculated Osmolality 284 mOsm/kg (285-295) L 02/12/22 15:35 Lactic Acid 1.9 mmol/L (0.5-2.2) 02/12/22 17:20 Calcium 9.2 mg/dL (8.5-10.5) 02/12/22 15:35 Total Bilirubin 1.6 mg/dL (0.15-1.2) H 02/12/22 15:35 AST 34 U/L (0-32) H 02/12/22 15:35 ALT 31 U/L (0-33) 02/12/22 15:35 Alkaline Phosphatase 146 U/L (35-105) H 02/12/22 15:35 Troponin T Baseline 13 ng/L (0-10) H 02/12/22 15:35 Troponin T 120 Minute 12.24 ng/L (0-10) H 02/12/22 17:20 Delta Troponin T -0.76 ABS# (0-10) L 02/12/22 17:20 Total Protein 6.4 g/dL (6.6-8.7) L 02/12/22 15:35 Albumin 3.6 g/dL (3.5-5.2) 02/12/22 15:35 Globulin 2.8 g/dL (1.3-4.6) 02/12/22 15:35 Procalcitonin 1.42 ng/mL (0-0.5) H 02/12/22 15:35 Coronavirus 229E (PCR) Not detected (NOT DETECT) 02/12/22 17:20 Influenza Type A Ag Negative (Negative) 02/12/22 17:25 Influenza Type B Ag Negative (Negative) 02/12/22 17:25 SARS-CoV-2 (PCR) Not detected (NOT DETECT) 02/12/22 17:20 Discharge Plan Discharge Patient Disposition: Placed in Observation Admit Provider: Hanna Moyer Clinical Impression: Pneumonia, Rheumatoid arthritis, ILD (interstitial lung disease) Discharge Diet: Cardiac Discharge Activity: Increase activity as tolerated Coding Level of Care Code ED Professor Of French for Chg Fwd
--- NOTE | 2022-02-12 15:57 | XRR_ITS ---
PROCEDURE INFORMATION: Exam: XR Right Ribs with PA Chest Exam date and time: 02/12/2022 5:47 PM Age: 71 years old Clinical indication: Chest wall pain; Bilateral TECHNIQUE: Imaging protocol: Radiologic exam of the Right ribs with PA chest. Views: 3 views COMPARISON: CR (CHEST, ) 01/05/2022 10:16 PM FINDINGS: Lungs: There is consolidation in the mid to lower left lung field most prominent at the lateral aspect of the left lung base. Prominent interstitial markings are similar to the prior study. Pleural spaces: Small left pleural effusion. Heart/Mediastinum: Unremarkable. No cardiomegaly. Vasculature: There is calcified plaque in the aortic knob. Diaphragm: Elevation of the left hemidiaphragm. There is transposition of the splenic flexure colon superior to the spleen. Bones/joints: There are degenerative changes in the thoracic spine and across the acromioclavicular joints. Hairline lucency through the lateral aspect of the left 10th rib is not well seen however raises concern for a nondisplaced fracture. XR/XR ribs RT mn 3V w CXR1V [id number] IMPRESSION: 1. There is consolidation in the mid to lower left lung field most prominent at the lateral aspect of the left lung base. Differential includes pneumonia and or atelectasis. Underlying neoplasm cannot be excluded. 2. Prominent interstitial markings are similar to the prior study. 3. Hairline lucency through the lateral aspect of the left 10th rib is not well seen however raises concern for a nondisplaced fracture. 4. Elevation of the left hemidiaphragm. There is transposition of the splenic flexure colon superior to the spleen.
[2022-02-12 16:01] LABS: Basophils # 0.1 10^3/uL (0.0-0.1); Basophils % 0.3 %; Eosinophils # 0.1 10^3/uL (0.0-0.8); Eosinophils % 0.3 %; Hematocrit 44.5 % (37.0-47.0); Lymphocytes % 4.5 %; Mean Corpuscular HGB Conc 31.5 g/dL (30.0-36.0); Mean Corpuscular Hemoglobin 27.6 pg (28.0-34.0); Mean Corpuscular Volume 87.8 fl (81-99); Mean Platelet Volume 12.2 fL (7.4-10.4); Monocytes # 1.8 10^3/uL (0.2-0.9); Neutrophils # 19.13 10^3/uL (1.8-7.7); Neutrophils % 84.6 %; Nucleated Red Blood Cells % 0 %; Platelet Count 246 10^3/cmm (130-400); Red Blood Count 5.07 10^6/uL (4.1-5.3); Red Cell Distribution Width 13.7 % (12.1-15.1); White Blood Count 22.6 10^3/uL (4.0-10.0)
[2022-02-12 16:07] LABS: Troponin(5th) Baseline 13 ng/L (0-10)
[2022-02-12 16:26] LABS: Alanine Aminotransferase 31 U/L (0-33); Albumin Level 3.6 g/dL (3.5-5.2); Alkaline Phosphatase 146 U/L (35-105); Anion Gap 16.6 (5-19); Aspartate Amino Transferase 34 U/L (0-32); Blood Urea Nitrogen 20 mg/dL (8-23); Calcium 9.2 mg/dL (8.5-10.5); Carbon Dioxide 27 mmol/L (22-29); Chloride 92 mmol/L (98-107); Globulin 2.8 g/dL (1.3-4.6); Glucose 224 mg/dL (65-115); Osmolality Calculated 284 mOsm/kg (285-295); Potassium 3.6 mmol/L (3.5-5.1); Sodium 132 mmol/L (136-145); Total Bilirubin 1.6 mg/dL (0.15-1.2); Total Protein 6.4 g/dL (6.6-8.7)
--- NOTE | 2022-02-12 17:28 | PM.HP ---
Providers/Chief Complaint Primary Care Provider: Sarina Dodson MD Chief Complaint: Left side pain History of Present Illness Tonia Figueroa is a 71 year old female with history of pulmonary fibrosis, diffuse lung disease, scleroderma presented to the hospital for worsening of left-sided pain. Patient is stating that since she started experiencing pleuritic chest pain which could get worse on changing position and taking deep breath. She has not suffered from any recent fall, she has not lifted heavy objects. She has not been experiencing excessive productive cough. She has not noticed any fever until today. Today in the ER she was diagnosed with fever, tachypnea, leukocytosis. There is concern for community-acquired pneumonia with sepsis. She has been given septic bolus lactic acid is pending, blood cultures taken. I requested CT scan to delineate what is causing her left 10th rib fracture. Please note she was taking steroids for her acute gout attack of right fifth toe that might explain high leukocytosis as well Review of Systems Const: Reports: fever(s), chills, body aches and fatigue Eyes: Denies: change in vision ENMT: Denies: throat pain Card: Denies: chest pain Resp: Reports: dyspnea and pain on inspiration GI: Denies: abdominal pain : Reports: flank pain Musc: Denies: neck pain Skin/Breast: Denies: rash Neuro: Denies: headache(s) Psych: Denies: anxiety Endo: Denies: polyuria Jaquan/Lymph: Denies: easy bruising All/Imm: Denies: urticaria Medications/Allergies Home Medications Medication Instructions Recorded Confirmed Last Taken Type estradiol 0.01% (0.1 mg/gram) 1 gm vaginal .weekly 07/11/19 02/08/22 Unknown History vaginal cream (Estrace) aspirin 81 mg chewable tablet 81 mg PO DAILY 03/12/20 02/08/22 Unknown History hydrocodone 5 mg-acetaminophen 325 1 tab PO Q6H PRN 03/12/20 02/08/22 Unknown History mg tablet rosuvastatin 20 mg tablet (Crestor) 20 mg PO DAILY 05/24/21 02/08/22 Unknown History thyroid (pork) 60 mg tablet 60 mg PO DIRECTED 05/24/21 02/08/22 Unknown History (Santa Claus Thyroid) cholecalciferol (vitamin D3) 50 50 mcg PO DAILY 08/16/21 02/08/22 Unknown History mcg (2,000 unit) capsule magnesium 250 mg tablet 250 mg PO DAILY 08/16/21 02/08/22 Unknown History potassium gluconate 595 mg (99 mg) 595 mg PO DAILY 08/16/21 02/08/22 Unknown History tablet zinc acetate 25 mg (zinc) capsule 25 mg PO DAILY 11/21/21 02/08/22 Unknown History (Galzin) prednisone 10 mg tablet See Rx Instructions PO .COMPLEX 11/24/21 02/08/22 Unknown Rx PRN joint pain #30 tabs nitroglycerin 0.4 mg sublingual 0.4 mg sublingual Q5M PRN chest 12/16/21 02/08/22 Unknown Rx tablet pain #30 tabs metoprolol tartrate 25 mg tablet 25 mg PO BID #120 tabs 01/04/22 02/08/22 Unknown Rx hydrochlorothiazide 25 mg tablet 12.5 mg PO .QOD 01/26/22 02/08/22 Unknown History diphenhydramine HCl 25 mg capsule 25 mg PO .HS PRN 02/08/22 02/08/22 Unknown History (Allergy (diphenhydramine)) montelukast 10 mg tablet 10 mg PO DAILY 02/08/22 02/08/22 Unknown History thyroid (pork) 15 mg tablet 15 mg PO EVERY OTHER DAY 02/12/22 02/12/22 02/11/22 History (Santa Claus Thyroid) Allergies Allergy/AdvReac Type Severity Reaction Status Date / Time hydroxychloroquine Allergy Intermediate SOB and Verified 02/08/22 11:59 heart palpitations nitrofurantoin Allergy Unknown lung Verified 02/08/22 11:59 [From Macrobid] disease sulfacetamide Allergy Unknown radha Verified 02/08/22 11:59 [From Sulfamide] clay syndrome naproxen Allergy ALGY-Hives Verified 02/08/22 11:59 PFSH Acute PFSH: Medical History ASHD (arteriosclerotic heart disease) Centromere antibody positive Dactylitis of toe High risk medication use Hypercholesteremia Hypertension ILD (interstitial lung disease) Immunization counseling Inflammatory arthritis Osteoarthritis of hands, bilateral Pulmonary fibrosis Rheumatoid arthritis SOB (shortness of breath) Systemic sclerosis with limited cutaneous involvement Surgical History H/O heart artery stent History of ankle surgery x3 History of bilateral knee replacement History of bladder repair surgery x2 History of hysterectomy S/P knee replacement bilat knee replacement Family History Mother CAD (coronary artery disease) Diabetes Hypertension Father Cancer Hyperlipidemia Hypertension Sister Diabetes Denies family history of Rheumatoid arthritis Lupus Clotting disorder Dementia Psychiatric illness Chronic kidney disease (CKD) Suicide Anesthesia complication Bleeding disorder Family history of premature coronary artery disease Lung disease Stroke Social History Smoking and tobacco status: former smoker Quit status (tobacco): has quit using tobacco Year quit tobacco: 1975 Former quit date comment: less than 1ppd for approx 10 years Alcohol intake: never Lives independently: Yes Current occupational status: retired History of recent travel: No Vitals/I&O/Wt Last Vital Signs Temp 101.4 F H 02/12/22 17:26 Pulse 105 H 02/12/22 17:26 Resp 18 02/12/22 17:26 BP 135/89 02/12/22 17:26 Pulse Ox 95 02/12/22 17:26 O2 Del Method 02/12/22 17:26 Weight last 48 hrs Weight 68.039 kg Physical Exam Narrative: Patient is complaining of left-sided chest pain Pleuritic in nature Currently on room air Skin looks flushed Dehydrated Looks comfortable at rest I did not appreciate any rhonchi or crackles Abdomen soft Lower extremity no swelling erythema or cellulitis Awake and alert Nonfocal neuro exam Family at the bedside Data : 02/12/22 15:35 02/12/22 15:35 Micro: Microbiology 02/12/22 16:38 Blood Culture - Preliminary Blood SPECIMEN COLLECTED 02/12/22 16:38 Blood Culture - Preliminary Blood SPECIMEN COLLECTED A&P Assessment and plan (1) Pneumonia: (2) Centromere antibody positive: (3) ILD (interstitial lung disease): (4) Rheumatoid arthritis: (5) Systemic sclerosis with limited cutaneous involvement: (6) Degenerative joint disease of ankle, left: Qualifiers: Osteoarthritis type: post-traumatic Qualified Code(s): 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, left ankle and foot (7) H/O heart artery stent: (8) Pleuritic pain: Plan Sepsis related to community-acquired pneumonia Bacteria met with fever, tachypnea, endorgan damage with RAY RAY related with sepsis Baseline creatinine is usually 1.0-1.1 Start broad-spectrum antibiotics patient is immunocompromise She was taking steroids for her gout attack Septic bolus Clinically looks dehydrated Currently on room air CT scan requested X-ray does show concern for possible 10th rib fracture I will add analgesics along bowel regimen Patient was counseled She is full code Cardiac diet Recent cardiac work-up was unremarkable DVT prophylaxis Lovenox Check procalcitonin Rule out COVID-19 Patient has history of COPD and interstitial lung disease however not oxygen dependent Attestations Medical Necessity Statement*: Anticipating more than 2 midnights for management of sepsis, pneumonia Time Spent in Patient Care: 40 Coding Level of Care Code Acute 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
--- NOTE | 2022-02-12 17:33 | CTR_ITS ---
PROCEDURE INFORMATION: Exam: CT Chest Without Contrast; Diagnostic Exam date and time: 02/12/2022 5:38 PM Age: 71 years old Clinical indication: Shortness of breath; Additional info: Pna TECHNIQUE: Imaging protocol: Diagnostic computed tomography of the chest without contrast. Radiation optimization: All CT scans at this facility use at least one of these dose optimization techniques: automated exposure control; mA and/or kV adjustment per patient size (includes targeted exams where dose is matched to clinical indication); or iterative reconstruction. COMPARISON: CT chest wo con [id number] 11/02/2021 2:38 PM RADIATION DOSE METRICS: Total DLP (mGy-cm): 346.75 FINDINGS: Lungs: There are scattered regions of bilateral subpleural interstitial thickening, greatest at the lung bases, suggestive of pulmonary fibrosis. These changes are similar to the prior study. Bronchiectatic changes are present in the lungs. There is consolidation along the left oblique fissure and in the left lower lobe consistent with pneumonia. Pleural spaces: Small left pleural effusion. A small amount of fluid extends along the left oblique fissure. Heart: Multivessel atherosclerotic disease which involves the coronary arteries. Lymph nodes: Unremarkable. No enlarged lymph nodes. Vasculature: Unremarkable. No aortic aneurysm. Kidneys and ureters: Partially visualized right renal cyst. Bones/joints: Unremarkable. No acute fracture. Soft tissues: Unremarkable. CT/CT chest wo con [id number] IMPRESSION: 1. Left lower lobe pneumonia. 2. There are scattered regions of bilateral subpleural interstitial thickening, greatest at the lung bases, suggestive of pulmonary fibrosis. COMMENTS: Consistent with the [employer]'s Incidental Findings Committee white paper (J Am Leyda Radiol 2018): Any incidental renal lesion less than 1 cm or classified as too small to characterize, or any incidental cystic renal lesion characterized as simple-appearing, is likely benign. No follow-up imaging is recommended for these lesions per consensus recommendations based on imaging criteria.
[2022-02-12] MEDS: sodium chloride 0.9% 2,041.17 ML 2041.17 ML IV (17:42)
[2022-02-12] MEDS: levofloxacin-dextrose 5 % 750 MG/150 ML PREMIX 100 MG IV (17:42)
[2022-02-12 17:55] LABS: Lactic Sepsis W/Reflex 1.9 mmol/L (0.5-2.2)
[2022-02-12 17:58] LABS: Troponin 5 2HR 12.24 ng/L (0-10); Troponin 5 2HR Delta -0.76 ABS# (0-10)
[2022-02-12 18:02] LABS: Procalcitonin 1.42 ng/mL (0-0.5)
[2022-02-12 19:14] LABS: Adenovirus Not Detected (NOT DETECT); Chlamydia Pneumoniae Not Detected (NOT DETECT); Coronavirus 229E,HKU1,NL63,OC4 Not Detected (NOT DETECT); Human Metapneumovirus Not Detected (NOT DETECT); Human Rhinovirus/Enterovirus Not Detected (NOT DETECT); Influenza A Not Detected (NOT DETECT); Influenza A H1 Not Detected (NOT DETECT); Influenza A H1-2009 Not Detected (NOT DETECT); Influenza A H3 Not Detected (NOT DETECT); Influenza B Not Detected (NOT DETECT); Mycoplasma Pneumoniae Not Detected (NOT DETECT); Parainfluenza Virus Type 1 Not Detected (NOT DETECT); Parainfluenza Virus Type 2 Not Detected (NOT DETECT); Parainfluenza Virus Type 3 Not Detected (NOT DETECT); Parainfluenza Virus Type 4 Not Detected (NOT DETECT); Respiratory Syncytial Virus A Not Detected (NOT DETECT); Respiratory Syncytial Virus B Not Detected (NOT DETECT); SARS-COV-2 Not Detected (NOT DETECT)
[2022-02-12] MEDS: enoxaparin 40 mg/0.4 mL Syringe SUBCUT (19:58)
[2022-02-12] MEDS: acetaminophen 500 mg Tablet PO (19:58)
[2022-02-12] MEDS: metoprolol tartrate 25 mg Tablet PO (19:58)
--- NOTE | 2022-02-12 20:11 | PC.PHAR ---
Vancomycin is dosed at 1gm IVPB every 24 hours to produce a predicted trough level of 13.31 (population based pharmacokinetic analysis). A trough level has been ordered from the lab to be obtained before the fourth dose to confirm and adjust if needed.
[2022-02-12 20:25] LABS: Influenza A by IFA Negative (Negative); Influenza B by IFA Negative (Negative)
[2022-02-12] MEDS: vancomycin 1,000 MG in sodium chloride 0.9% 250 ML 250 MG IV (20:33)
--- NOTE | 2022-02-12 20:56 | ECG_ITS ---
[facility] Test Date: 2022-02-12 Pat Name: Tonia Figueroa Department: Room: 259 Gender: Female Customer Quality Specialist: : 1950 Requested By: Mariano Gabriel Order Number: [id number] Jill MD: Iris Morel M.D. Measurements Intervals [place] Rate: 93 P: 26 WI: 147 QRS: -32 QRSD: 96 T: 78 QT: 364 QTc: 455 Interpretive Statements SINUS RHYTHM WITH OCCASIONAL SUPRAVENTRICULAR PREMATURE COMPLEXES LEFT AXIS DEVIATION [QRS AXIS < -30] PATTERN CONSISTENT WITH PULMONARY DISEASE LEFT VENTRICULAR HYPERTROPHY AND ST-T CHANGE [VOLTAGE CRITERIA PLUS ST/T ABNORMALITY] Compared to ECG 02/12/2022 18:46:09 Left ventricular hypertrophy now present ST (T wave) deviation now present Sinus tachycardia no longer present Ventricular premature complex(es) no longer present T-wave abnormality no longer present Possible ischemia no longer present Electronically Signed On 02-12-2022 22:28:43 TRANSPORTATION SUPERINTENDENT by Iris Morel M.D. [id number]
--- NOTE | 2022-02-12 21:05 | ECG_ITS ---
[facility] Test Date: 2022-02-12 Pat Name: Tonia Figueroa Department: Room: 259 Gender: Female Hand Cell Tuber: : 1950 Requested By: Mariano Gabriel Order Number: [id number] Jill MD: Iris Morel M.D. Measurements Intervals [place] Rate: 113 P: 51 [place]: 145 QRS: -39 QRSD: 98 T: 108 QT: 330 QTc: 453 Interpretive Statements SINUS TACHYCARDIA WITH OCCASIONAL VENTRICULAR PREMATURE COMPLEXES WITH OCCASIONAL SUPRAVENTRICULAR PREMATURE COMPLEXES LEFT AXIS DEVIATION [QRS AXIS < -30] ST DEVIATION AND MODERATE T-WAVE ABNORMALITY, CONSIDER LATERAL ISCHEMIA [-0.1+ mV T-WAVE IN I/aVL/V5/V6] Compared to ECG 02/12/2022 14:45:17 Ventricular premature complex(es) now present T-wave abnormality now present Possible ischemia now present Left ventricular hypertrophy no longer present ST (T wave) deviation no longer present Electronically Signed On 02-12-2022 22:26:49 HOMICIDE INVESTIGATOR by Iris Morel M.D. [id number]
[2022-02-12 21:32] LABS: Troponin 5 6HR 13.27 ng/L (0-10)
[2022-02-12 21:34] LABS: Troponin 5 6HR Delta 0.27 ng/L (0-12)
[2022-02-12] MEDS: piperacillin-tazobactam 3.375 GM in sodium chloride 0.9% (plus) 50 ML IV (21:36)
[2022-02-13] VITALS (7 sets, daily range): BP systolic 97–129; BP diastolic 48–73; PULSE 64–107; RESP 13–22; TEMP 36.6–37.1; O2SAT 90–93
[2022-02-13] MEDS: HYDROcodone-acetaminophen 5-325 mg Tablet 1 TAB PO ×2 (05:23→21:59)
[2022-02-13] MEDS: piperacillin-tazobactam 3.375 GM in sodium chloride 0.9% (plus) 50 ML IV ×3 (05:23→23:32)
[2022-02-13 05:45] LABS: Basophils # 0.1 10^3/uL (0.0-0.1); Basophils % 0.3 %; Eosinophils % 0.1 %; Hematocrit 41.1 % (37.0-47.0); Hemoglobin 13.1 g/dL (11.5-15.3); Lymphocytes % 5.4 %; Mean Corpuscular HGB Conc 31.9 g/dL (30.0-36.0); Mean Corpuscular Hemoglobin 27.8 pg (28.0-34.0); Mean Corpuscular Volume 87.3 fl (81-99); Mean Platelet Volume 11.7 fL (7.4-10.4); Monocytes # 1.8 10^3/uL (0.2-0.9); Monocytes % 9.4 %; Neutrophils # 16.04 10^3/uL (1.8-7.7); Neutrophils % 84.1 %; Nucleated Red Blood Cells % 0 %; Platelet Count 207 10^3/cmm (130-400); Red Blood Count 4.71 10^6/uL (4.1-5.3); Red Cell Distribution Width 13.7 % (12.1-15.1); White Blood Count 19.1 10^3/uL (4.0-10.0)
[2022-02-13 06:05] LABS: Alanine Aminotransferase 21 U/L (0-33); Albumin Level 2.8 g/dL (3.5-5.2); Alkaline Phosphatase 123 U/L (35-105); Anion Gap 16.1 (5-19); Aspartate Amino Transferase 19 U/L (0-32); Blood Urea Nitrogen 19 mg/dL (8-23); Calcium 8.8 mg/dL (8.5-10.5); Carbon Dioxide 26 mmol/L (22-29); Chloride 96 mmol/L (98-107); Globulin 3.3 g/dL (1.3-4.6); Glucose 169 mg/dL (65-115); Magnesium 1.6 mg/dL (1.7-2.3); Osmolality Calculated 286 mOsm/kg (285-295); Potassium 3.1 mmol/L (3.5-5.1); Sodium 135 mmol/L (136-145); Total Bilirubin 1.2 mg/dL (0.15-1.2); Total Protein 6.1 g/dL (6.6-8.7)
[2022-02-13 06:19] LABS: C Reactive Protein 447.4 mg/L (0.0-4.9)
[2022-02-13 06:32] LABS: Slide Review Slide Review Perform
[2022-02-13] MEDS: potassium chloride ER 20 mEq Tablet 40 MEQ PO (08:16)
[2022-02-13] MEDS: sennosides-docusate Tablet 1 TAB PO (08:17)
[2022-02-13] MEDS: magnesium oxide 400 mg tablet PO ×2 (08:17→17:32)
[2022-02-13] MEDS: metoprolol tartrate 25 mg Tablet PO ×2 (08:17→17:32)
--- NOTE | 2022-02-13 08:53 | P.PN_ITS ---
Subjective Subjective: Febrile events overnight Leukocytosis improving Potassium and magnesium repleted this morning Patient is endorsing feeling better CT scan did not show fracture Left-sided pneumonia Vitals/I&O/Wt Last Vital Signs Temp 97.9 F 02/13/22 07:35 Pulse 76 02/13/22 08:00 Resp 22 H 02/13/22 08:00 BP 100/48 02/13/22 07:35 Pulse Ox 92 02/13/22 08:00 O2 Del Method 02/13/22 08:00 02/12/22 02/13/22 02/13/22 22:59 06:59 14:59 Intake Total 2441.17 / 2441.17 50 / 2491.17 Output Total 200 / 200 750 / 950 Balance 2241.17 / 2241.17 -700 / 1541.17 Weight last 48 hrs Weight 68.039 kg Physical Exam Narrative: Patient is awake and alert Currently on room air Hemodynamic stable Complaining of pleuritic chest pain Tolerating diet Abdomen soft No signs of edema Pleasant and cooperative No audible stridor or wheezing s1, S2 Data : 02/13/22 05:17 02/13/22 05:17 Micro: Microbiology 02/12/22 20:48 Legionella Urinary Antigen - Final Urine,Voided Bacterial Antigens - Final 02/12/22 16:38 Blood Culture - Preliminary Blood SPECIMEN COLLECTED 02/12/22 16:38 Blood Culture - Preliminary Blood SPECIMEN COLLECTED A&P Assessment and plan (1) Pleuritic pain: (2) Pneumonia: (3) ILD (interstitial lung disease): (4) Rheumatoid arthritis: (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 Nails outpatient Cultures negative so far Waiting for sputum cultures Hypokalemia hypomagnesemia: Repleted RAY: Improving COVID been ruled out Recent cardiac work-up negative Attestations Medical Necessity Statement*: Anticipating discharge in next 48 hours Time Spent in Patient Care: 30 Coding Level of Care Code Acute Pharmacy Benefit Manager for Chg Fwd Diagnoses Pleuritic pain R07.81 Pneumonia J18.9 ILD (interstitial lung disease) J84.9 Rheumatoid arthritis M06.9 Systemic sclerosis with limited cutaneous involvement M34.9 Sepsis A41.9
[2022-02-13] MEDS: lidocaine 5% Patch 1 PATCH TOPICAL (09:16)
--- NOTE | 2022-02-13 12:25 | PC.CHAP ---
Pastoral Care Encounter/Spiritual Assessment Type of Contact [] Declined program associate visit [] Patient/Family/Request visit [] Outpatient visit [] Follow-up visit [] Physician referral [] Code/Alert [x] Routine visit [] Staff referral [] Actively dying [] Patient sleeping [x] Family support [] [] Out of room [] Palliative care [] [] Receiving care in room [] Pre-surgical visit [] Trauma [] Long length of stay [] ICU visit [] Other: Relational/Emotional Strength [] Patient feels connected with others/family/visitors/staff [] Distress [] Loneliness/isolation [] Abandonment Spirituality of Patient [] Person of Christel [] Attends Restorationism of their Christel [] Believes in Prayer [] Reads Bible or Synagogue materials [] There are Spiritual issues to be addressed Insurance Processor Interventions [x] Prayer [] Active listening [] Non-anxious presence [] Spiritual/emotional support [] Crisis/trauma care [] Spiritual counseling [] Bereavement support [] Provided bereavement packet [] Provided Bible/devotional materials [] Provided toy/stuffed animal, coloring book to patient or family member [] Provided Communion [] Anointing/[place] [] Salvation [x] Completed spiritual assessment [] Other: Impact on Illness or Injury [] Angry [] Fearful [] Anxious [] Often cries [] Exhaustion [] Unable to work [] Unable to attend restorationist [] Unable to walk/stand [] Unable to read [] Unable to drive [] Unable to eat/drink [] Unable to sleep [] Unable to be with family [] Patient intubated [] Other: Summary Time spent with patient
[2022-02-13] MEDS: enoxaparin 40 mg/0.4 mL Syringe SUBCUT (18:41)
[2022-02-13] MEDS: vancomycin 1,000 MG in sodium chloride 0.9% 250 ML 250 MG IV (21:58)
[2022-02-14] VITALS (8 sets, daily range): BP systolic 95–110; BP diastolic 59–76; PULSE 108–130; RESP 13–20; TEMP 36.4–36.9; O2SAT 90–93
[2022-02-14] MEDS: piperacillin-tazobactam 3.375 GM in sodium chloride 0.9% (plus) 50 ML IV ×3 (05:12→21:49)
[2022-02-14 05:57] LABS: Basophils # 0.1 10^3/uL (0.0-0.1); Basophils % 0.3 %; Eosinophils # 0.1 10^3/uL (0.0-0.8); Eosinophils % 0.6 %; Hematocrit 40.5 % (37.0-47.0); Hemoglobin 12.9 g/dL (11.5-15.3); Lymphocytes # 1.3 10^3/uL (0.8-4.8); Mean Corpuscular HGB Conc 31.9 g/dL (30.0-36.0); Mean Corpuscular Hemoglobin 27.3 pg (28.0-34.0); Mean Corpuscular Volume 85.8 fl (81-99); Mean Platelet Volume 11.3 fL (7.4-10.4); Monocytes # 1.9 10^3/uL (0.2-0.9); Neutrophils # 17.23 10^3/uL (1.8-7.7); Neutrophils % 83.3 %; Nucleated Red Blood Cells % 0 %; Platelet Count 221 10^3/cmm (130-400); Red Blood Count 4.72 10^6/uL (4.1-5.3); Red Cell Distribution Width 13.8 % (12.1-15.1); White Blood Count 20.7 10^3/uL (4.0-10.0)
[2022-02-14 06:11] LABS: Anion Gap 13.2 (5-19); Blood Urea Nitrogen 18 mg/dL (8-23); Calcium 8.6 mg/dL (8.5-10.5); Carbon Dioxide 27 mmol/L (22-29); Chloride 95 mmol/L (98-107); Glucose 174 mg/dL (65-115); Osmolality Calculated 280 mOsm/kg (285-295); Potassium 3.2 mmol/L (3.5-5.1); Sodium 132 mmol/L (136-145)
--- NOTE | 2022-02-14 06:46 | PC.NURSE ---
Report given Marlee SANABRIA at this time
[2022-02-14 08:44] LABS: Basophils # 0.1 10^3/uL (0.0-0.1); Basophils % 0.4 %; Eosinophils # 0.2 10^3/uL (0.0-0.8); Eosinophils % 0.9 %; Hematocrit 41.4 % (37.0-47.0); Hemoglobin 13.2 g/dL (11.5-15.3); Lymphocytes # 1.5 10^3/uL (0.8-4.8); Lymphocytes % 7.2 %; Mean Corpuscular HGB Conc 31.9 g/dL (30.0-36.0); Mean Corpuscular Hemoglobin 27.8 pg (28.0-34.0); Mean Corpuscular Volume 87.2 fl (81-99); Mean Platelet Volume 11.7 fL (7.4-10.4); Monocytes # 1.6 10^3/uL (0.2-0.9); Neutrophils # 16.76 10^3/uL (1.8-7.7); Neutrophils % 82.7 %; Nucleated Red Blood Cells % 0 %; Platelet Count 220 10^3/cmm (130-400); Red Blood Count 4.75 10^6/uL (4.1-5.3); Red Cell Distribution Width 13.9 % (12.1-15.1); White Blood Count 20.3 10^3/uL (4.0-10.0)
[2022-02-14] MEDS: sodium chloride 0.9% 500 ML IV (09:20)
[2022-02-14] MEDS: sennosides-docusate Tablet 1 TAB PO (09:23)
[2022-02-14] MEDS: lidocaine 5% Patch 1 PATCH TOPICAL (09:23)
[2022-02-14] MEDS: magnesium oxide 400 mg tablet PO ×2 (09:23→17:40)
[2022-02-14] MEDS: metoprolol tartrate 25 mg Tablet PO ×2 (09:23→17:40)
[2022-02-14] MEDS: thyroid 60 mg Tablet 15 MG PO (09:42)
[2022-02-14] MEDS: thyroid 60 mg Tablet PO (09:42)
[2022-02-14] MEDS: ondansetron 2 mg/ML SDV 2 mL 4 MG IVP ×2 (10:50→17:39)
--- NOTE | 2022-02-14 11:37 | P.PN_ITS ---
Subjective Subjective: Patient is endorsing feeling tired and fatigued No fever Leukocytosis around 20,000 Cultures negative to date Agreeable to stay 1 more day for IV antibiotics Vitals/I&O/Wt Last Vital Signs Temp 98.1 F 02/14/22 10:42 Pulse 123 H 02/14/22 10:42 Resp 18 02/14/22 10:42 BP 104/76 02/14/22 10:42 Pulse Ox 91 02/14/22 10:42 O2 Del Method 02/14/22 10:42 02/13/22 02/14/22 02/14/22 22:59 06:59 14:59 Intake Total 770 / 1060 300 / 1360 896.667 / 896.667 Output Total 750 / 1050 300 / 1350 Balance 0 10 896.667 / 896.667 Weight last 48 hrs Weight 68.039 kg Physical Exam Narrative: Patient clinically doing better Currently on room air Bilateral breath sound without adventitious rhonchi or crackles Clinically looks euvolemic to dehydrated Abdomen soft No signs of edema of legs Pleuritic chest pain is improving Pleasant and cooperative at the bedside Data : 02/14/22 08:23 02/14/22 05:45 Micro: Microbiology 02/12/22 16:38 Blood Culture - Preliminary Blood NEGATIVE TO DATE 02/12/22 16:38 Blood Culture - Preliminary Blood NEGATIVE TO DATE 02/12/22 20:30 MRSA Culture - Final Nose 02/12/22 20:48 Legionella Urinary Antigen - Final Urine,Voided Bacterial Antigens - Final A&P Assessment and plan (1) Sepsis: (2) Pleuritic pain: (3) Pneumonia: (4) Centromere antibody positive: (5) ILD (interstitial lung disease): (6) Rheumatoid arthritis: (7) Systemic sclerosis with limited cutaneous involvement: Plan Sepsis related to Communit acquired pneumonia Leukocytosis worsening however she has remained afebrile, cultures negative Low blood pressure noted today Will cover another small bolus Sepsis related RAY: Give IV fluid Stop vancomycin Electrolytes replenished Full code Cardiac DVT prophylaxis on board Attestations Medical Necessity Statement*: Discharge tomorrow if stable Time Spent in Patient Care: 30 Coding Level of Care Code Acute Children'S Aide for [facility] Fwd Diagnoses Sepsis A41.9 Pleuritic pain R07.81 Pneumonia J18.9 Centromere antibody positive R76.8 ILD (interstitial lung disease) J84.9 Rheumatoid arthritis M06.9 Systemic sclerosis with limited cutaneous involvement M34.9
--- NOTE | 2022-02-14 11:45 | ECG_ITS ---
[facility] Test Date: 2022-02-14 Pat Name: Tonia Figueroa Department: Room: 259 Gender: Female Well Logger: : 1950 Requested By: Hanna Moyer Order Number: [id number] Reading MD: Sharad Mckeon Measurements Intervals [place] Rate: 121 P: 0 [place]: 0 QRS: -31 QRSD: 90 T: 134 QT: 299 QTc: 426 Interpretive Statements ATRIAL FIBRILLATION WITH RAPID VENTRICULAR RESPONSE LEFT AXIS DEVIATION [QRS AXIS < -30] NONSPECIFIC ST & T-WAVE ABNORMALITY Compared to ECG 02/12/2022 20:56:25 T-wave abnormality now present Sinus rhythm no longer present Left ventricular hypertrophy no longer present ST (T wave) deviation no longer present Electronically Signed On 02-14-2022 18:03:53 APPLICATION MANAGER by Sharad Mckeon [id number]
[2022-02-14 13:15] LABS: D Dimer 5.13 ug/mIFEU (0-0.59)
[2022-02-14] MEDS: HYDROcodone-acetaminophen 5-325 mg Tablet 1 TAB PO (17:48)
[2022-02-14] MEDS: enoxaparin 40 mg/0.4 mL Syringe SUBCUT (19:06)
[2022-02-15] VITALS (22 sets, daily range): BP systolic 83–121; BP diastolic 52–74; PULSE 79–172; RESP 13–30; TEMP 36.6–36.8; O2SAT 90–96; BMI 24.5
[2022-02-15] MEDS: HYDROcodone-acetaminophen 5-325 mg Tablet 1 TAB PO ×2 (00:48→20:29)
[2022-02-15] MEDS: ondansetron 2 mg/ML SDV 2 mL 4 MG IVP ×2 (00:49→17:57)
--- NOTE | 2022-02-15 04:46 | PC.NURSE ---
Contacted Dr. Daly via VOLATE to let her know that the pt HR elevated to 160s when ambulating to bedside commode. Pt denied chest pain but said she was having left sided abdominal pain. Once back in bed I took her BP and it was 117/73 and oxygen saturation was 96% on room air, her HR came back down to 100-120 once in bed. Awaiting response from Dr. Daly.
[2022-02-15] MEDS: piperacillin-tazobactam 3.375 GM in sodium chloride 0.9% (plus) 50 ML IV ×2 (05:02→15:56)
[2022-02-15] MEDS: metoprolol tartrate 25 mg Tablet PO ×2 (05:55→17:54)
--- NOTE | 2022-02-15 05:57 | PC.NURSE ---
Contacted Dr. Daly via phone, pt was coughing and HR elevated to 173. Dr. Daly said to give her dose of metoprolol tartrate 25 mg due at 0900 now. Administered the dose per Dr. Daly's order.
[2022-02-15 06:03] LABS: Basophils # 0.1 10^3/uL (0.0-0.1); Basophils % 0.4 %; Eosinophils # 0.3 10^3/uL (0.0-0.8); Eosinophils % 1.9 %; Hematocrit 40.5 % (37.0-47.0); Hemoglobin 12.5 g/dL (11.5-15.3); Lymphocytes # 1.4 10^3/uL (0.8-4.8); Lymphocytes % 7.8 %; Mean Corpuscular HGB Conc 30.9 g/dL (30.0-36.0); Mean Corpuscular Hemoglobin 27.2 pg (28.0-34.0); Mean Corpuscular Volume 88.2 fl (81-99); Mean Platelet Volume 11.8 fL (7.4-10.4); Monocytes # 1.3 10^3/uL (0.2-0.9); Monocytes % 7.2 %; Neutrophils # 14.81 10^3/uL (1.8-7.7); Neutrophils % 81.2 %; Nucleated Red Blood Cells % 0 %; Platelet Count 217 10^3/cmm (130-400); Red Blood Count 4.59 10^6/uL (4.1-5.3); Red Cell Distribution Width 14.3 % (12.1-15.1); White Blood Count 18.2 10^3/uL (4.0-10.0)
[2022-02-15 06:31] LABS: Anion Gap 17.1 (5-19); Blood Urea Nitrogen 18 mg/dL (8-23); Calcium 8.8 mg/dL (8.5-10.5); Carbon Dioxide 27 mmol/L (22-29); Chloride 98 mmol/L (98-107); Glucose 147 mg/dL (65-115); Osmolality Calculated 293 mOsm/kg (285-295); Potassium 3.1 mmol/L (3.5-5.1); Sodium 139 mmol/L (136-145)
--- NOTE | 2022-02-15 08:08 | CT_ITS ---
WS: [id number] CTA OF THE CHEST WITH PULMONARY EMBOLISM PROTOCOL TECHNIQUE: High-resolution contrast enhanced CTA of the chest with coronal and sagittal reformatted i mages with pulmonary embolism protocol. MIP images are also reviewed. CLINICAL INFORMATION: pleuritic pain COMPARISON: February 12, 2022 DLP: 318.[address] scans at [facility] use at least one of these dose optimization techniques: automated e xposure control; mA and/or kV adjustment per patient size (includes targeted exams where dose is matc hed to clinical indication); or iterative reconstruction. FINDINGS: Proximal main pulmonary arteries are normal. Normal segmental and subsegmental pulmonary arteries. No evidence of pulmonary embolus. Reactive anterior mediastinal lymph nodes. Coronary calcification. No rmal caliber thoracic aorta. Aortic calcification. Tiny pericardial effusion. Loculated pleural fluid involving the LEFT hemithorax. Loculated fluid along the LEFT fissure. Patchy airspace infiltrates in the LEFT lower lobe with partial consolidation. Pleural fluid and infiltrate s are progressed compared to February 12, 2022. Tiny RIGHT pleural effusion. Bronchiectasis in the RIGHT upper lobe. Pulmonary fibrosis. Small esophageal hiatal hernia. Mild thoracic kyphosis. CT/CT angio chest PE protcl [id number] IMPRESSION: 1. No evidence of pulmonary embolus. 2. Circumferential pleural fluid throughout the LEFT lung with loculated pleur al fluid along the LEFT fissure. This is progressed since February 12, 2022. 3. Small LEFT pleural effusion with airspace consolidation LEFT lower lobe pro gressed compared to previous consistent with pneumonia. 4. Additional chronic findings suggestive of pulmonary fibrosis. 5. No other significant interval changes.
--- NOTE | 2022-02-15 08:09 | USCV_ITS ---
Tonia Figueroa Age: 71 Gender: F : 1950 Exam Date: 02/15/2022 08:28 Ordering Phys: Hanna Moyer MD Technologist: SABRINA [place] [facility] [place]: Hypoxia. PROCEDURES: Venous duplex imaging was performed in bilateral lower extremities. The following venous structures were evaluated: common femoral vein, profunda vein, proximal portion of the greater saphenous vein, superficial femoral vein, and the popliteal vein. In addition, the posterior tibial and peroneal trunk were evaluated. Serial compression, augmentation maneuvers, and spectral Doppler flow evaluation were performed. FINDINGS: Appears to have a possible DVT located in the Lt popliteal vein. CONCLUSIONS Occlusive DVT left popliteal vein Remainder Bilateral lower extremity veins are patent Virgil Worthy MD (Electronically Signed) Final Date: 15 February 2022 15:23 S
[2022-02-15] MEDS: iohexol 350 mg/mL 500 mL Btl (per mL) IV (09:22)
--- NOTE | 2022-02-15 09:57 | USCV_ITS ---
Tonia Figueroa Age: 71 Gender: F : 1950 Exam Date: 02/15/2022 10:36 Ordering Phys: Hanna Moyer MD Technologist: CARON Exam Location: [facility] [place] Indication: PE, EVAL FOR RIGHT HEART STRAIN BP: 108 / 73 HR: 141 Rhythm: Sinus Technical Quality: Adequate MEASUREMENTS (Male / Female) Normal Values 2D ECHO LVOT Diameter 2.0 cm LA Diameter 3.1 cm LA Width 2.3 cm LA Height 4.3 cm RA Width 2.2 cm RA Height 4.6 cm Aorta at Sinotubular Diameter 2.9 cm M-MODE Aortic Annulus Diameter 2.8 cm LA Ao Ratio MM 1.1 MV E Point Septal Separation 0.4 cm DOPPLER Right Atrial Pressure 8.0 mmHg FINDINGS Left Ventricle Right Ventricle Right Atrium Left Atrium Mitral Valve Aortic Valve Tricuspid Valve Pulmonic Valve Pericardium Aorta IVC CONCLUSIONS This is a limited echocardiogram performed to assess RV strain. Because of elevated heart rate, limited quality study. Grossly RV is normal in size and function. LV systolic function is grossly normal. Chaim Whittington MD (Electronically Signed) Final Date: 16 February 2022 13:57 S
--- NOTE | 2022-02-15 10:20 | P.PN_ITS ---
Subjective Subjective: Patient was persistently sinus tachycardic in 140s I requested venous Doppler and CTA to rule out PE Her D-dimer is high Her heart rate has not improved significantly with IV fluids yesterday That is a reason for her question D-dimer which came back high We will start her on heparin drip for DVT, request echo to see right heart strain Check BNP, Afebrile, leukocytosis trending down Vitals/I&O/Wt Last Vital Signs Temp 98.1 F 02/15/22 07:57 Pulse 114 H 02/15/22 08:01 Resp 20 H 02/15/22 08:01 BP 108/73 02/15/22 07:57 Pulse Ox 96 02/15/22 08:01 O2 Del Method 02/15/22 08:01 02/14/22 02/15/22 02/15/22 22:59 06:59 14:59 Intake Total 1223.333 / 2120.000 50 / 2170.000 Output Total 200 / 600 Balance 1223.333 / 1720.000 -150 / 1570.000 Physical Exam Narrative: Patient is endorsing feeling better Awake and alert Nonfocal neuro exam Currently on room air S1, S2 sinus tachycardia heart rate in 130s Abdomen soft Lower extremity no edema Pleasant and cooperative EOMI, PERRLA Data : 02/15/22 05:43 02/15/22 05:43 Micro: Microbiology 02/13/22 18:43 Gram Stain - Final Sputum - Expectorated Sputum A&P Assessment and plan (1) Sinus tachycardia: (2) Sepsis: (3) Pleuritic pain: (4) Pneumonia: (5) Centromere antibody positive: (6) ILD (interstitial lung disease): (7) Systemic sclerosis with limited cutaneous involvement: (8) Hypertension: Plan Sinus tachycardia Positive DVT No signs of PE Left-sided infiltrate with consolidation Dr. Nails regional sales director Symptomatically she has improved she does not complain of leg pain, afebrile leukocytosis lying down In case she gets worse she might need thorascopic evaluation at [place] by cardiothoracic now she is on heparin drip it cannot be done outpatient she will need to be admitted Acute DVT Unprovoked Start heparin drip Requested BMP and limited echo to see right heart strain Community-acquired pneumonia MRSA PCR negative Currently on Zosyn Leukocytosis improving Cultures negative so far Sepsis related to pneumonia: Resolved Full code Regular diet Heparin drip Continue medical hospitalization Pleuritic pain has improved Continue levothyroxine She is also getting the Toprol tartrate 25 mg twice daily Attestations Medical Necessity Statement*: Continue medical hospitalization Time Spent in Patient Care: 30 Coding Level of Care Code Acute Marine Electrician for Chg Fwd Diagnoses Sinus tachycardia R00.0 Sepsis A41.9 Pleuritic pain R07.81 Pneumonia J18.9 Centromere antibody positive R76.8 ILD (interstitial lung disease) J84.9 Systemic sclerosis with limited cutaneous involvement M34.9 Hypertension I10
--- NOTE | 2022-02-15 10:31 | US_ITS ---
WS: [id number] LEFT chest ultrasound. HISTORY: Evaluate for thoracentesis. Ultrasound LEFT chest demonstrates a very small pleural effusion. There is very minimal pleural thick ening. The lung extends in an out of the pleural fluid during breathing. There is a small amount of a telectatic lung also. No thoracentesis will be performed due to the very small size and increased ris k for the patient. US/US chest [id number] IMPRESSION: Very small left-sided pleural effusion with adjacent atelectatic lung. Insuffic ient fluid for thoracentesis.
[2022-02-15] MEDS: lidocaine 5% Patch 1 PATCH TOPICAL (10:56)
[2022-02-15] MEDS: magnesium oxide 400 mg tablet PO ×2 (10:56→17:55)
[2022-02-15] MEDS: thyroid 60 mg Tablet PO (10:56)
[2022-02-15] MEDS: sennosides-docusate Tablet 1 TAB PO (10:56)
[2022-02-15 11:16] LABS: NT Pro B Type Natriuretic Pept 7048 pg/mL (0-125)
[2022-02-15] MEDS: heparin 5,000 unit/mL INJ 1 mL IV (11:24)
[2022-02-15] MEDS: heparin drip 25,000 UNIT/500 ML PREMIX 21 UNIT IV (11:25)
--- NOTE | 2022-02-15 12:23 | ECG_ITS ---
[facility] Test Date: 2022-02-15 Pat Name: Tonia Figueroa Department: Room: 259 Gender: Female Topographical Surveyor: : 1950 Requested By: Hanna Moyer Order Number: [id number] Jill MD: Chaim Whittignton M.D. Measurements Intervals [place] Rate: 138 P: 0 [place]: 0 QRS: -29 QRSD: 93 T: 135 QT: 277 QTc: 420 Interpretive Statements ATRIAL FIBRILLATION WITH RAPID VENTRICULAR RESPONSE WITH ABERRANT CONDUCTION OR VENTRICULAR PREMATURE COMPLEXES BORDERLINE LEFT AXIS DEVIATION [QRS AXIS < -20] MINIMAL VOLTAGE CRITERIA FOR LVH, CONSIDER NORMAL VARIANT [MEETS CRITERIA IN ONE OF: R(aVL), S(V1), R(V5), R(V5/V6)+S(V1)] ST DEVIATION AND MODERATE T-WAVE ABNORMALITY, CONSIDER LATERAL ISCHEMIA [-0.1+ mV T-WAVE IN I/aVL/V5/V6] Compared to ECG 02/14/2022 12:07:52 Ventricular premature complex(es) now present Aberrant conduction of supraventricular beat(s) now present Possible ischemia now present T-wave abnormality still present Electronically Signed On 02-17-2022 6:28:10 CLINICAL ACCOUNT EXECUTIVE by Chaim Whittington M.D. [id number]
[2022-02-15] MEDS: labetalol 5 mg/mL SDV 20mL 10 MG IVP (12:52)
[2022-02-15] MEDS: lactated ringers 1,000 ML 999 ML IV (12:53)
[2022-02-15] MEDS: dilTIAZem 30 mg Tablet PO ×2 (13:07→18:35)
[2022-02-15 15:03] LABS: Magnesium 1.9 mg/dL (1.7-2.3)
[2022-02-15] MEDS: lidocaine 1% 5 ML in potassium chloride premix 100 ML 25 ML IV ×2 (15:57→20:24)
--- NOTE | 2022-02-15 15:59 | PC.NURSE ---
received from 2nd floor at 1445.report received.pt is alert and oriented x 4.denies pain at present.afib on monitor with rate 120's to 130's.bp 120/80.denies chest pain or sob.cardizem drip started at 10 mg as ordered.oriented to room environment.instructed to notify staff for any sob,cp,or for any concerns at all.pt verb understanding of instructions
[2022-02-15 19:06] LABS: Partial Thromboplastin Time 63.5 SECONDS (23.9-36.7)
[2022-02-16] VITALS (15 sets, daily range): BP systolic 83–111; BP diastolic 53–82; PULSE 66–99; RESP 17–22; TEMP 36.4–36.8; O2SAT 92–97
[2022-02-16] MEDS: dilTIAZem 30 mg Tablet PO (03:27)
[2022-02-16] MEDS: piperacillin-tazobactam 3.375 GM in sodium chloride 0.9% (plus) 50 ML IV (03:27)
[2022-02-16 05:20] LABS: Basophils # 0.1 10^3/uL (0.0-0.1); Basophils % 0.4 %; Eosinophils # 0.4 10^3/uL (0.0-0.8); Eosinophils % 2.2 %; Hematocrit 38.6 % (37.0-47.0); Hemoglobin 12.2 g/dL (11.5-15.3); Lymphocytes % 11.9 %; Mean Corpuscular HGB Conc 31.6 g/dL (30.0-36.0); Mean Corpuscular Hemoglobin 27.3 pg (28.0-34.0); Mean Corpuscular Volume 86.4 fl (81-99); Mean Platelet Volume 11.9 fL (7.4-10.4); Monocytes # 1.3 10^3/uL (0.2-0.9); Monocytes % 7.7 %; Neutrophils % 76.1 %; Nucleated Red Blood Cells % 0 %; Platelet Count 247 10^3/cmm (130-400); Red Blood Count 4.47 10^6/uL (4.1-5.3); Red Cell Distribution Width 14.3 % (12.1-15.1); White Blood Count 16.4 10^3/uL (4.0-10.0)
[2022-02-16 05:34] LABS: Anion Gap 15.9 (5-19); Blood Urea Nitrogen 13 mg/dL (8-23); Calcium 8.3 mg/dL (8.5-10.5); Carbon Dioxide 26 mmol/L (22-29); Chloride 94 mmol/L (98-107); Glucose 138 mg/dL (65-115); Osmolality Calculated 278 mOsm/kg (285-295); Sodium 133 mmol/L (136-145)
[2022-02-16 05:39] LABS: Partial Thromboplastin Time 79.4 SECONDS (23.9-36.7)
[2022-02-16 06:13] LABS: Potassium 2.9 mmol/L (3.5-5.1)
--- NOTE | 2022-02-16 06:34 | PC.NURSE ---
Spoke with regarding patient with potassium of 2.9 this am, ordered replacement.
[2022-02-16] MEDS: diphenhydrAMINE 50 mg/mL SDV 1mL 25 MG IVP (07:58)
[2022-02-16] MEDS: magnesium oxide 400 mg tablet PO ×2 (08:00→18:07)
[2022-02-16] MEDS: lactated ringers 500 ML 999 ML IV (08:00)
[2022-02-16] MEDS: lidocaine 5% Patch 1 PATCH TOPICAL ×2 (08:00→21:28)
[2022-02-16] MEDS: dexamethasone 4 mg Tablet 2 MG PO (08:01)
[2022-02-16] MEDS: doxycycline 100 mg Tablet PO ×2 (08:01→18:07)
[2022-02-16] MEDS: metoprolol tartrate 25 mg Tablet PO (08:01)
[2022-02-16] MEDS: potassium chloride ER 20 mEq Tablet 60 MEQ PO (08:01)
[2022-02-16] MEDS: dilTIAZem ER (24HR) 120 mg Capsule PO (08:01)
[2022-02-16] MEDS: sennosides-docusate Tablet 1 TAB PO (08:01)
[2022-02-16] MEDS: apixaban 5 mg Tablet 10 MG PO ×2 (08:01→21:28)
--- NOTE | 2022-02-16 08:42 | PC.NURSE ---
at walking rounds,jadno girard (night supervisor) reported pt had just recently developed a raised pruiritic rash.rash noted on wrists,arms,abd, and back.zosyn was infusing..this was stopped.dr gonzalez notified...he ordered benadryl,steroid,dc zosyn.orders completed as ordered.he also ordered to dc heparin drip (eliquis began), increase in cardizem dose.
[2022-02-16] MEDS: thyroid 60 mg Tablet PO (09:08)
[2022-02-16] MEDS: thyroid 60 mg Tablet 15 MG PO (09:09)
--- NOTE | 2022-02-16 10:25 | P.PN_ITS ---
Subjective Subjective: Discussion at length with the patient and her daughter patient has been started on doxycycline for possible MRSA pneumonia She will need cardiothoracic referral at [facility], daughter prefers [facility] in case she gets worse in future however is so far she is showing signs of improvement pleuritic pain has improved Afebrile Leukocytosis improving Still in A. fib RVR I will increase the dose of metoprolol and Cardizem I will switch her Cardizem to titratable dose Vitals/I&O/Wt Last Vital Signs Temp 98.3 F 02/16/22 08:00 Pulse 97 02/16/22 08:00 Resp 18 02/16/22 08:00 BP 106/68 02/16/22 08:00 Pulse Ox 97 02/16/22 08:00 O2 Del Method 02/16/22 08:00 02/15/22 02/16/22 02/16/22 22:59 06:59 14:59 Intake Total 561.833 / 1611.833 170 / 1781.833 250 / 250 Output Total 560 / 560 220 / 780 Balance 1.833 / 1051.833 -50 / 1001.833 250 / 250 Weight last 48 hrs Weight 73.142 kg Physical Exam Narrative: Patient is awake and alert Euvolemic No abdominal pain S1, S2 variable Awake and alert Doing well on room air Does not look fluid overloaded No audible stridor or wheezing No signs of edema of legs Family at the bedside Patient is pleasant and cooperative Data 02/16/22 04:29 02/16/22 04:29 Micro: Microbiology 02/13/22 18:43 Gram Stain - Final Sputum - Expectorated Sputum Sputum Culture - Preliminary Coag positive Staphylococcus A&P Assessment and plan (1) Sepsis: (2) Pleuritic pain: (3) Pneumonia: (4) Centromere antibody positive: (5) ILD (interstitial lung disease): (6) Rheumatoid arthritis: (7) Systemic sclerosis with limited cutaneous involvement: (8) New onset a-fib: (9) DVT (deep venous thrombosis): Plan New onset A. fib Acute DVT No signs of PE Currently on 10 mg of Eliquis For her A. fib she is on Cardizem drip I have increased the dose of metoprolol to 75 mg twice a day along Cardizem 240 mg daily Hypokalemia: Repleted Bilateral pleural effusion Loculated effusion No signs of empyema IR could not do thoracentesis Patient clinically is improving Pleuritic pain is improved Afebrile Sepsis resolving We will give her cardiothoracic referral outpatient in case she gets worse as sh kit has MRSA pneumonia She is at risk of lung abscess and empyema but so far no such signs Spoke with the daughter and the patient, they are agreeable with the plan The plan for [facility] cardiothoracic surgery follow-up Sepsis related to MRSA pneumonia: Improving, discontinue Zosyn, continue doxycycline Drug rash, given Benadryl and Decadron this morning No signs of anaphylaxis We are not sure what caused the drug rash this morning Currently on Eliquis therapeutic dose To new medications that were added today are doxycycline and Eliquis Watch closely for any signs of drug reaction Full code Regular diet Watch 1 more day to control her heart rate plan to discharge tomorrow if clinically stable Attestations Medical Necessity Statement*: If clinically stable discharge tomorrow Time Spent in Patient Care: 35 Coding Level of Care Code Acute Straw Hat Brim Cutter Operator for [facility] Fwd Diagnoses Sepsis A41.9 Pleuritic pain R07.81 Pneumonia J18.9 Centromere antibody positive R76.8 ILD (interstitial lung disease) J84.9 Rheumatoid arthritis M06.9 Systemic sclerosis with limited cutaneous involvement M34.9 New onset a-fib I48.91 DVT (deep venous thrombosis) I82.409
[2022-02-16] MEDS: lidocaine 1% 5 ML in potassium chloride premix 100 ML 25 ML IV (11:41)
[2022-02-16 11:52] LABS: Magnesium 1.7 mg/dL (1.7-2.3)
--- NOTE | 2022-02-16 14:00 | PC.NURSE ---
pt noted to have converted to nsr with rate in 70's at approx 1250.cardizem drip turned off.
[2022-02-16] MEDS: metoprolol tartrate 25 mg Tablet 75 MG PO (18:07)
[2022-02-17 04:00] VITALS: BP 110/59; PULSE 62; RESP 19; TEMP 36.6; O2SAT 98
[2022-02-17 04:34] LABS: Basophils % 0.1 %; Eosinophils % 0.1 %; Hematocrit 32.9 % (37.0-47.0); Hemoglobin 10.5 g/dL (11.5-15.3); Lymphocytes % 7.1 %; Mean Corpuscular HGB Conc 31.9 g/dL (30.0-36.0); Mean Corpuscular Hemoglobin 27.6 pg (28.0-34.0); Mean Corpuscular Volume 86.6 fl (81-99); Mean Platelet Volume 10.9 fL (7.4-10.4); Monocytes # 0.8 10^3/uL (0.2-0.9); Monocytes % 5.8 %; Neutrophils % 85.1 %; Nucleated Red Blood Cells % 0 %; Platelet Count 240 10^3/cmm (130-400); Red Cell Distribution Width 14.3 % (12.1-15.1); White Blood Count 13.9 10^3/uL (4.0-10.0)
[2022-02-17 04:54] LABS: Anion Gap 14.4 (5-19); Blood Urea Nitrogen 19 mg/dL (8-23); Calcium 8.2 mg/dL (8.5-10.5); Carbon Dioxide 25 mmol/L (22-29); Chloride 100 mmol/L (98-107); Creatinine Clr Calc Pharmacy 41.1286; Glucose 204 mg/dL (65-115); Osmolality Calculated 288 mOsm/kg (285-295); Potassium 4.4 mmol/L (3.5-5.1); Sodium 135 mmol/L (136-145)
[2022-02-17 06:00] VITALS: PULSE 62
[2022-02-17 07:18] VITALS: BP 144/82; PULSE 70; RESP 16; TEMP 36.9; O2SAT 96
--- NOTE | 2022-02-17 08:38 | PC.SOCIAL ---
IMM update IMM updated with patient and at bedside. Verbalized an understanding. Copy Pg 2 provided. Initialled, dated, timed, and placed in chart.
[2022-02-17] MEDS: metoprolol tartrate 25 mg Tablet 75 MG PO (09:50)
[2022-02-17] MEDS: thyroid 60 mg Tablet PO (09:53)
[2022-02-17] MEDS: doxycycline 100 mg Tablet PO (09:53)
[2022-02-17] MEDS: magnesium oxide 400 mg tablet PO (09:53)
[2022-02-17] MEDS: apixaban 5 mg Tablet 10 MG PO (09:54)
[2022-02-17] MEDS: dilTIAZem ER (24HR) 240 mg Capsule PO (09:54)
[2022-02-17] MEDS: lidocaine 5% Patch 1 PATCH TOPICAL (09:54)
--- NOTE | 2022-02-17 10:00 | PM.DCS ---
Discharge Providers Date of Admission: 02/12/22 17:33 Date of Discharge: February 17, 2022 Attending Provider at Admission: Hanna Moyer MD Attending Provider at Discharge: Hanna Moyer MD Primary Care Provider: Sarina Lim MD Diagnoses at Discharge Discharge Diagnosis (1) Sepsis: Status: Acute (2) Pleuritic pain: Status: Acute (3) Pneumonia: Status: Acute (4) Centromere antibody positive: Status: Acute (5) ILD (interstitial lung disease): Status: Acute (6) Rheumatoid arthritis: Status: Acute (7) Systemic sclerosis with limited cutaneous involvement: Status: Acute (8) New onset a-fib: Status: Acute (9) DVT (deep venous thrombosis): Status: Acute Reason for Visit Reason for Visit: Left side pain Hospital Course Hospital Course Patient making most 1-year-old female who was admitted to the hospital for management evaluation of respiratory distress, Sepsis related to Community acquired pneumonia, CT scan of chest showed loculated effusion, patient spiked fever on day 1 however with use of broad-spectrum antibiotics she remained afebrile afterwards,I requested thoracentesis however there was not enough fluid to be drained as per Dr. Jones, her sputum culture showed staph aureus, blood cultures negative, this case was discussed with her rfid developer who recommended VATS/pleuroscopy for diagnostic purposes outpatient given the fact she clinically improved, pulmonary is not on-call for next few weeks, I have given her referral to see Dr. Tamayo and in case he is not available I have also given her referral to see cardiothoracic surgeon at [place] in case she gets worse. Her pleuritic pain has improved she has remained afebrile leukocytosis improving. And she is getting albuterol rescue inhaler along doxycycline 10-day regimen. Please note during her hospitalization she developed left leg DVT, no signs of PE, new onset A. fib RVR which required IV Cardizem at 10 mg for about 24 hours, metoprolol 75 mg twice daily and Cardizem 240 mg daily, with this regimen we were able to transition her rhythm to normal sinus. Her blood pressure has remained on softer side at the time of discharge I have given her 2 AV kal blocking agents and Eliquis Physical Exam Narrative: Hemodynamically stable Sinus rhythm Heart rate in 70s Hemodynamically stable Nonfocal neuro exam Abdomen soft No signs of edema of legs No audible stridor or wheezing Saturating well on room air Discharge Data Studies Completed and Pending Completed Studies During Hospitalization Category Date Time Status CT chest wo con [id number] Stat Cat Scan 02/12/22 17:33 Completed CTA PE [CT angio chest PE protcl 14105] Stat Cat Scan 02/15/22 08:08 Completed XR ribs RT mn 3V w CXR1V [id number] Stat Exams 02/12/22 15:57 [place] [id number] Stat Ultrasound 02/15/22 08:09 Completed CV. echo limited [id number] Routine Ultrasound 02/15/22 09:57 [place] chest [id number] Routine Ultrasound 02/15/22 10:31 Completed Pending at discharge Category Date Time Status Blood Culture Stat Lab 02/12/22 16:38 Results Radiology Impressions Ribs X-Ray 02/12/22 15:57 IMPRESSION: 1. There is consolidation in the mid to lower left lung field most prominent at the lateral aspect of the left lung base. Differential includes pneumonia and or atelectasis. Underlying neoplasm cannot be excluded. 2. Prominent interstitial markings are similar to the prior study. 3. Hairline lucency through the lateral aspect of the left 10th rib is not well seen however raises concern for a nondisplaced fracture. 4. Elevation of the left hemidiaphragm. There is transposition of the splenic flexure colon superior to the spleen. Chest CT 02/12/22 17:33 IMPRESSION: 1. Left lower lobe pneumonia. 2. There are scattered regions of bilateral subpleural interstitial thickening, greatest at the lung bases, suggestive of pulmonary fibrosis. COMMENTS: Consistent with the [employer]'s Incidental Findings Committee white paper (J Am Leyda Radiol 2018): Any incidental renal lesion less than 1 cm or classified as too small to characterize, or any incidental cystic renal lesion characterized as simple-appearing, is likely benign. No follow-up imaging is recommended for these lesions per consensus recommendations based on imaging criteria. Chest CTA 02/15/22 08:08 IMPRESSION: 1. No evidence of pulmonary embolus. 2. Circumferential pleural fluid throughout the LEFT lung with loculated pleural fluid along the LEFT fissure. This is progressed since February 12, 2022. 3. Small LEFT pleural effusion with airspace consolidation LEFT lower lobe progressed compared to previous consistent with pneumonia. 4. Additional chronic findings suggestive of pulmonary fibrosis. 5. No other significant interval changes. Chest Ultrasound 02/15/22 10:31 IMPRESSION: Very small left-sided pleural effusion with adjacent atelectatic lung. Insufficient fluid for thoracentesis. Laboratory Results WBC 13.9 10^3/uL (4.0-10.0) H 02/17/22 04:20 RBC 3.80 10^6/uL (4.1-5.3) L 02/17/22 04:20 Hgb 10.5 g/dL (11.5-15.3) L 02/17/22 04:20 Hct 32.9 % (37.0-47.0) L 02/17/22 04:20 MCV 86.6 fl (81-99) 02/17/22 04:20 MCH 27.6 pg (28.0-34.0) L 02/17/22 04:20 MCHC 31.9 g/dL (30.0-36.0) 02/17/22 04:20 RDW 14.3 % (12.1-15.1) 02/17/22 04:20 Plt Count 240 10^3/cmm (130-400) 02/17/22 04:20 MPV 10.9 fL (7.4-10.4) H 02/17/22 04:20 Neut % (Auto) 85.1 % 02/17/22 04:20 Lymph % (Auto) 7.1 % 02/17/22 04:20 [place] % (Auto) 5.8 % 02/17/22 04:20 Eos % (Auto) 0.1 % 02/17/22 04:20 Baso % (Auto) 0.1 % 02/17/22 04:20 Neut # (Auto) 11.80 10^3/uL (1.8-7.7) H 02/17/22 04:20 Lymph # (Auto) 1.0 10^3/uL (0.8-4.8) 02/17/22 04:20 [place] # (Auto) 0.8 10^3/uL (0.2-0.9) 02/17/22 04:20 Eos # (Auto) 0.0 10^3/uL (0.0-0.8) 02/17/22 04:20 Baso # (Auto) 0.0 10^3/uL (0.0-0.1) 02/17/22 04:20 Nucleated RBC % (auto) 0 % 02/17/22 04:20 Nucleated RBCs # 0.0 /100WBC 02/17/22 04:20 APTT 79.4 SECONDS (23.9-36.7) H 02/16/22 04:29 D-Dimer 5.13 ug/mIFEU (0-0.59) H 02/14/22 12:44 Sodium 135 mmol/L (136-145) L 02/17/22 04:20 Potassium 4.4 mmol/L (3.5-5.1) 02/17/22 04:20 Chloride 100 mmol/L (98-107) 02/17/22 04:20 Carbon Dioxide 25 mmol/L (22-29) 02/17/22 04:20 Anion Gap 14.4 (5-19) 02/17/22 04:20 BUN 19 mg/dL (8-23) 02/17/22 04:20 Creatinine 1.3 mg/dL (0.5-0.9) H 02/17/22 04:20 GFR Calculation Not Reportable 02/17/22 04:20 Glucose 204 mg/dL (65-115) H 02/17/22 04:20 Calculated Osmolality 288 mOsm/kg (285-295) 02/17/22 04:20 Lactic Acid 1.9 mmol/L (0.5-2.2) 02/12/22 17:20 Calcium 8.2 mg/dL (8.5-10.5) L 02/17/22 04:20 Magnesium 1.7 mg/dL (1.7-2.3) 02/16/22 11:22 Total Bilirubin 1.2 mg/dL (0.15-1.2) 02/13/22 05:17 AST 19 U/L (0-32) 02/13/22 05:17 ALT 21 U/L (0-33) 02/13/22 05:17 Alkaline Phosphatase 123 U/L (35-105) H 02/13/22 05:17 Troponin T Baseline 13 ng/L (0-10) H 02/12/22 15:35 Troponin T 120 Minute 12.24 ng/L (0-10) H 02/12/22 17:20 Delta Troponin T -0.76 ABS# (0-10) L 02/12/22 17:20 Troponin T Hi Sens 6Hr 13.27 ng/L (0-10) H 02/12/22 21:07 Troponin T Hi Sens 6Hr Delta 0.27 ng/L (0-12) 02/12/22 21:07 C-Reactive Protein 447.4 mg/L (0.0-4.9) H 02/13/22 05:17 NT-Pro-B Natriuret Pep 7048 pg/mL (0-125) H 02/15/22 05:43 Total Protein 6.1 g/dL (6.6-8.7) L 02/13/22 05:17 Albumin 2.8 g/dL (3.5-5.2) L 02/13/22 05:17 Globulin 3.3 g/dL (1.3-4.6) 02/13/22 05:17 Procalcitonin 1.42 ng/mL (0-0.5) H 02/12/22 15:35 Coronavirus 229E (PCR) Not detected (NOT DETECT) 02/12/22 17:20 Influenza Type A Ag Negative (Negative) 02/12/22 17:25 Influenza Type B Ag Negative (Negative) 02/12/22 17:25 SARS-CoV-2 (PCR) Not detected (NOT DETECT) 02/12/22 17:20 Vitals Last Vital Signs Temp 98.5 F 02/17/22 07:18 Pulse 70 02/17/22 07:18 Resp 16 02/17/22 07:18 BP 144/82 02/17/22 07:18 Pulse Ox 96 02/17/22 07:18 O2 Del Method 02/17/22 07:18 Discharge Plan Discharge Patient Disposition: Home Condition: Stable Prescriptions: New diltiazem HCl 240 mg Capsule,Extended Release 24hr 240 mg PO DAILY PRN (Reason: If heart rate above 110 despite taking metoprolol) Qty: 60 0RF doxycycline monohydrate 100 mg Tablet 100 mg PO BID Qty: 20 0RF Eliquis DVT-PE Treat 30D Start 5 mg (74 tabs) tablets,dose pack See Rx Instructions .ROUTE .COMPLEX Qty: 74 3RF Rx Instructions: orally per package directions albuterol sulfate 90 mcg/actuation HFA aerosol inhaler 2 inh inhalation Q8H PRN (Reason: shortness of breath or wheezing) Qty: 6.7 1RF Continued estradiol [Estrace] 0.01 % (0.1 mg/gram) cream 1 gm VAGINAL Q7D Rx Instructions: On Sundays rosuvastatin [Crestor] 20 mg tablet 20 mg PO DAILY thyroid (pork) [[place] Thyroid] 60 mg tablet 60 mg PO DAILY Rx Instructions: with 15 mg every other day hydrocodone-acetaminophen 5-325 mg tablet 1 tab PO Q6H PRN (Reason: Pain) Rx Instructions: dr lim cholecalciferol (vitamin D3) 50 mcg (2,000 unit) capsule 50 mcg PO BID Galzin 25 mg (zinc) capsule 25 mg PO DAILY diphenhydramine HCl [Allergy (diphenhydramine)] 25 mg capsule 25 mg PO BEDTIME PRN (Reason: Insomnia) montelukast 10 mg tablet 10 mg PO DAILY nitroglycerin 0.4 mg tablet, sublingual 0.4 mg sublingual Q5M PRN (Reason: chest pain) Qty: 30 3RF Rx Instructions: do not exceed 3 doses per episode prednisone 10 mg tablet See Rx Instructions PO .COMPLEX PRN (Reason: joint pain) Qty: 30 1RF Rx Instructions: take 1 or 2 tab daily for 3-7 days prn joint pain flare PO PRN; [place] Thyroid 15 mg Tablet 15 mg PO EVERY OTHER DAY magnesium 250 mg tablet 250 mg PO DAILY Qty: 30 0RF Changed metoprolol tartrate 25 mg tablet 50 mg PO BID Qty: 120 3RF Rx Instructions: May take additional 1/2 tab of metoprolol for BP above 150 systolic, if heart rate greater than 60 bpm Discontinued aspirin 81 mg tablet,chewable 81 mg PO DAILY hydrochlorothiazide 25 mg tablet 12.5 mg PO EVERY OTHER DAY potassium gluconate 595 mg (99 mg) tablet 595 mg PO DAILY Discharge Orders: Discharge Order (Routine); Ordered 02/17/22 Ordered By: Hanna Moyer Referrals: Brooks romano [Other] (Patient might need thorascopy/VATS) Abelardo Larsen NP [Referring] - 03/02/22 2:30 pm (You have a hospital followup with HEIDY Purcell at [facility] on March 02 at 2:30 pm. Any questions or Appointment Changes, please give them a call. Thank you) Michael Tamayo MD [Physician] - 03/02/22 9:15 am (VATS and thorascopy You have an appointment With Dr. Tamayo's Nurse Practioner, HOLLY Arguello on March 02 at 9:15am. Any questions or appointment changes, please give them a call. Thank you) Discharge Diet: Cardiac Discharge Activity: Increase activity as tolerated Patient Instructions: Diltiazem (By mouth) (Cardizem, Cardizem CD, Cardizem LA, Cardizem SR), Doxycycline (By mouth) (Acticlate, Adoxa, Avidoxy, Monodox, Doryx), Albuterol (By breathing) (ProAir, AccuNeb, Proventil, Proventil..., Apixaban (By mouth) (Eliquis), Opioid Safety Activity Restrictions/Additional Instructions: Staph aureus positive in your sputum You will prescribe doxycycline for 10 days which is twice a day regimen Your A. fib has converted to normal sinus rhythm, I am giving you metoprolol 50 mg twice a day regimen to control your heart rate if that is not controlling your heart rate I am also giving you Cardizem to be used on a as needed basis to keep the heart rate below 110 You will take Eliquis 10 mg twice daily for 7 days and then 5 mg twice daily onwards for your DVT Please do not take aspirin because now you are on Eliquis You will need thorascopy/VATS, clinically you have improved, I do not think you need this procedure right away I am giving you referral of Dr. Tamayo if he can do this procedure here if he is not available and in case she gets worse at home I have put in Dr. Williamson's referral he is at [facility], I do not know him personally this is based on my online research If you have any questions please do not hesitate to call back and ask for a different referral ask hospitalist department to connect you with Dr. Moyer Discharge Attestations Time Spent in Discharge Care*: less than 30 min Quality Metrics Clinical Quality Measures [ No reported AMI, CVA or VTE this stay] Coding Level of Care Code Acute Chg FW DC note Diagnoses Sepsis A41.9 Pleuritic pain R07.81 Pneumonia J18.9 Centromere antibody positive R76.8 ILD (interstitial lung disease) J84.9 Rheumatoid arthritis M06.9 Systemic sclerosis with limited cutaneous involvement M34.9 New onset a-fib I48.91 DVT (deep venous thrombosis) I82.409
[2022-02-17 10:59] VITALS: BP 144/82; PULSE 70; RESP 16; TEMP 36.9; O2SAT 96
--- NOTE | 2022-02-17 11:26 | PC.NURSE ---
Discharge instructions given to patient, IV removed. Prescriptions sent to pharmacy. No further questions. Patient getting dressed and ready to go home.
--- NOTE | 2022-02-17 11:45 | PC.NURSE ---
Patient wheeled to private vehicle by this nurse, accompanied by . All belongings with patient.
== END 2022-02-17 11:46 | disposition home or self-care (01) | DRG 871 ==
LOC: ER 17:31 → MEDSURG 18:12 → CSU 02-15 14:48
PROVIDERS: Emergency Medicine; Admitting Provider Internal Medicine; Emergency Provider Family Medicine; PCP Internal Medicine; Visit Provider Internal Medicine
DX: A41.02 Sepsis due to Methicillin resistant Staphylococcus aureus (principal); J15.212 Pneumonia due to Methicillin resistant Staphylococcus aureus; I82.432 Acute embolism and thrombosis of left popliteal vein; N17.9 Acute kidney failure, unspecified; J84.9 Interstitial pulmonary disease, unspecified; R76.8 Other specified abnormal immunological findings in serum; M06.9 Rheumatoid arthritis, unspecified; M19.172 Post-traumatic osteoarthritis, left ankle and foot; I48.91 Unspecified atrial fibrillation; M10.9 Gout, unspecified; E86.0 Dehydration; M34.9 Systemic sclerosis, unspecified; E87.6 Hypokalemia; E83.42 Hypomagnesemia; R06.03 Acute respiratory distress; R65.20 Severe sepsis without septic shock; L27.0 Generalized skin eruption due to drugs and medicaments taken internally; J44.9 Chronic obstructive pulmonary disease, unspecified; Z96.653 Presence of artificial knee joint, bilateral; Z20.822 Contact with and (suspected) exposure to COVID-19; Z95.5 Presence of coronary angioplasty implant and graft; Z87.891 Personal history of nicotine dependence
CPT/HCPCS: 36415; 71101; 71250; 71275; 76604; 80048; 80053; 83605; 83735; 83880; 84145; 84484; 85025; 85378; 85730; 86140; 86403; 87040; 87070; 87077; 87186; 87205; 87449; 87635; 87641; 87804; 93005; 93308; 93970; 94664; 96365; 96372; 99285; J1200; J1644; J1650; J1956; J2405; J2543; J3370; J3480; J3490; J7030; J7040; J7050; J7120; J8540; Q9967

== ENCOUNTER 2022-02-20 15:44 | Outpatient (CLI) | payer MEDICARE, BC, SELFPAY ==
--- NOTE | 2022-02-20 16:00 | XRR_ITS ---
PROCEDURE INFORMATION: Exam: XR Chest Exam date and time: 02/20/2022 4:00 PM Age: 71 years old Clinical indication: Cough and dyspnea; Prior surgery; Surgery type: Stent; Patient HX: HX of pneumonia x 1 week, follow up; Additional info: Pneumonia, bacterial TECHNIQUE: Imaging protocol: Radiologic exam of the chest. Views: 2 views. COMPARISON: CR (CHEST, ) 02/12/2022 5:47 PM FINDINGS: Lungs: Fibrotic interstitial lung changes. There is some generalized haziness of the left lower lung parenchyma. There is a faint rounded left suprahilar opacity not clearly visible on comparison of uncertain significance. Pleural spaces: Pleural thickening versus small pleural effusion at both lung bases but greater left than right. Negative for pneumothorax. Heart/Mediastinum: Unremarkable. No cardiomegaly. Bones/joints: Unremarkable. Other findings: Ring-like ring-like changes of the peripheral interstitial architecture bilaterally. XR/XR chest 2V* [id number] IMPRESSION: 1. No significant changes from comparison. 2. Possible development of rounded pneumonia area in the suprahilar aspect of left lung. 3. Radiographic follow-up recommended.
== END 2022-02-20 15:45 | disposition home or self-care (01) ==
LOC: RAD 15:48
PROVIDERS: PCP Internal Medicine; Visit Provider Internal Medicine
DX: R05.9 Cough, unspecified (principal); R06.00 Dyspnea, unspecified
CPT/HCPCS: 71046

== ENCOUNTER 2022-02-27 11:50 | Outpatient (CLI) | payer MEDICARE, BC, SELFPAY ==
--- NOTE | 2022-02-27 12:05 | XRR_ITS ---
PROCEDURE INFORMATION: Exam: XR Chest Exam date and time: 02/27/2022 12:07 PM Age: 71 years old Clinical indication: Condition or disease; Lung condition and disease; Bacterial; Prior surgery; Surgery type: Stent; Patient HX: History--hx pneumonia f/u, cough for 2 weeks; Additional info: Bacterial pneumonia TECHNIQUE: Imaging protocol: Radiologic exam of the chest. Views: Frontal and lateral upright, 2 views. COMPARISON: CR XR chest 2V* [id number] 02/20/2022 4:00 PM FINDINGS: Lungs: Improved left basilar consolidation/atelectasis. Stable right middle lobe medial segment scarring. Stable patchy lateral mid left lung zone airspace opacities. New partial atelectasis or infiltrate lateral right mid lung zone. Coarse bilateral central pulmonary markings with moderate architectural distortion. The pulmonary vasculature is stable. Pleural spaces: No pleural effusion. No pneumothorax. Heart/Mediastinum: The heart is normal in size and contour. Bones/joints: Degenerative disk disease is prsent at mid-thoracic spine disk levels. XR/XR chest 2V* [id number] IMPRESSION: 1. Improved left basilar consolidation/atelectasis. 2. Stable right middle lobe medial segment scarring. 3. Stable patchy lateral mid left lung zone airspace opacities. 4. New partial atelectasis or infiltrate lateral right mid lung zone. 5. Chronic lung disease.
== END 2022-02-27 11:51 | disposition home or self-care (01) ==
LOC: RAD 11:52
PROVIDERS: PCP Internal Medicine; Visit Provider Internal Medicine
DX: J15.9 Unspecified bacterial pneumonia (principal); J98.11 Atelectasis; J98.4 Other disorders of lung
CPT/HCPCS: 71046

== ENCOUNTER 2022-03-02 14:29 | Outpatient (RCR) | payer SELFPAY | END 2022-04-01 23:59 | disposition home or self-care (01) | LOC: CR 14:29 | PROVIDERS: PCP Internal Medicine; Referring Provider Internal Medicine; Visit Provider Internal Medicine | DX: Z95.5 Presence of coronary angioplasty implant and graft (principal) ==

== ENCOUNTER 2022-03-08 13:21 | Outpatient (CLI) | payer MEDICARE, BC, SELFPAY ==
--- NOTE | 2022-03-08 13:36 | XR_ITS ---
WS: [id number] EXAMINATION: XR chest 2V* [id number] REASON FOR EXAM: MRSA PNEUMONIA COMPARISON: 02/20/2022 ORDER DATE: 03/08/2022 1:38 PM FINDINGS: Lungs: Nearly completely cleared left basilar consolidation/atelectasis. Stable right middle lobe medial segment scarring. Stable patchy lateral mid left lung zone airspace opacities. New possible nodule or infiltrate as marked, right mid lung zone. Coarse bilateral central pulmonary markings with moderate architectural distortion. The pulmonary vasculature is stable. Pleural spaces: No pleural effusion. No pneumothorax. Heart/Mediastinum: The heart is normal in size and contour. Bones/joints: Degenerative disk change XR/XR chest 2V* [id number] IMPRESSION: 1. Clearing of left basilar consolidation/atelectasis. 2. Possible new nodule right middle lobe medial segment are small infiltrate or scar appearing differently due to projection 3. Chronic lung disease
== END 2022-03-08 13:22 | disposition home or self-care (01) ==
PROVIDERS: PCP Internal Medicine; Visit Provider Internal Medicine
DX: J15.212 Pneumonia due to Methicillin resistant Staphylococcus aureus (principal); J98.4 Other disorders of lung
CPT/HCPCS: 71046

== ENCOUNTER 2022-04-05 12:54 | Outpatient (RCR) | payer SELFPAY | END 2022-05-02 23:59 | disposition home or self-care (01) | LOC: CR 12:54 | PROVIDERS: PCP Internal Medicine; Referring Provider Internal Medicine; Visit Provider Internal Medicine | DX: Z95.5 Presence of coronary angioplasty implant and graft (principal) ==

== ENCOUNTER → 2022-04-10 17:18 | Outpatient (BNVA) | payer OTHER, SELFPAY | PROVIDERS: PCP Internal Medicine; Visit Provider Nurse Practitioner Women's Health | DX: R82.90 Unspecified abnormal findings in urine (principal) | CPT/HCPCS: 87077; 87086; 87184 ==

== ENCOUNTER 2022-04-24 11:08 | Outpatient (CLI) | payer MEDICARE, SELFPAY ==
--- NOTE | 2022-04-24 11:30 | MM_ITS ---
WS: [id number] BILATERAL SCREENING DIGITAL TOMOSYNTHESIS MAMMOGRAM WITH CAD HISTORY: SCREENING COMPARISON: 02/11/2021, 01/05/2020 Bilateral CC and MLO views with tomosynthesis and synthetic mammography submitted. Computer aided det ection analyzed. Breast composition: There are scattered areas of fibroglandular density. No suspicious masses, microc alcifications or architectural distortion. Bilateral breast arterial calcifications and small benign round calcifications in each breast. MM/[place] [id number] IMPRESSION: BI-RADS: 2-Benign FOLLOW UP: 1 Year Follow-up
== END 2022-04-24 11:09 | disposition home or self-care (01) ==
PROVIDERS: PCP Internal Medicine; Visit Provider Internal Medicine
DX: Z12.31 Encounter for screening mammogram for malignant neoplasm of breast (principal)
CPT/HCPCS: 77063; 77067

== ENCOUNTER 2022-05-03 15:17 | Outpatient (RCR) | payer SELFPAY | END 2022-05-30 23:59 | disposition home or self-care (01) | LOC: CR 15:17 | PROVIDERS: PCP Internal Medicine; Referring Provider Internal Medicine; Visit Provider Internal Medicine | DX: Z95.5 Presence of coronary angioplasty implant and graft (principal) ==

== ENCOUNTER → 2022-05-15 10:40 | Outpatient (BNVA) | payer MEDICARE, SELFPAY | PROVIDERS: PCP Internal Medicine; Visit Provider Internal Medicine Cardiovascular Disease | DX: I48.91 Unspecified atrial fibrillation (principal); E78.00 Pure hypercholesterolemia, unspecified; I25.10 Atherosclerotic heart disease of native coronary artery without angina pectoris; Z79.01 Long term (current) use of anticoagulants; I10 Essential (primary) hypertension; Z87.891 Personal history of nicotine dependence; I82.409 Acute embolism and thrombosis of unspecified deep veins of unspecified lower extremity | CPT/HCPCS: 99214 ==

== ENCOUNTER 2022-05-31 15:04 | Outpatient (RCR) | payer SELFPAY | END 2022-06-30 23:59 | disposition home or self-care (01) | LOC: CR 15:04 | PROVIDERS: PCP Internal Medicine; Referring Provider Internal Medicine; Visit Provider Internal Medicine | DX: Z95.5 Presence of coronary angioplasty implant and graft (principal) ==

== ENCOUNTER → 2022-06-06 12:50 | Outpatient (BNVA) | payer MEDICARE, SELFPAY | PROVIDERS: PCP Internal Medicine; Visit Provider Internal Medicine Rheumatology | DX: M06.9 Rheumatoid arthritis, unspecified (principal); J84.9 Interstitial pulmonary disease, unspecified; Z71.85 Encounter for immunization safety counseling; Z79.899 Other long term (current) drug therapy; R76.8 Other specified abnormal immunological findings in serum; Z86.16 Personal history of COVID-19; M15.9 Polyosteoarthritis, unspecified | CPT/HCPCS: 99214 ==

== ENCOUNTER → 2022-06-26 10:00 | Outpatient (BNVA) | payer MEDICARE, SELFPAY | PROVIDERS: PCP Internal Medicine; Visit Provider Nurse Practitioner Women's Health | DX: N30.20 Other chronic cystitis without hematuria (principal); Z79.899 Other long term (current) drug therapy | CPT/HCPCS: 87086 ==

== ENCOUNTER 2022-07-03 13:37 | Outpatient (RCR) | payer SELFPAY | END 2022-07-30 23:59 | disposition home or self-care (01) | LOC: CR 13:37 | PROVIDERS: PCP Internal Medicine; Referring Provider Internal Medicine; Visit Provider Internal Medicine | DX: Z95.5 Presence of coronary angioplasty implant and graft (principal) ==

== ENCOUNTER 2022-07-31 15:43 | Outpatient (RCR) | payer SELFPAY | END 2022-08-30 23:59 | disposition home or self-care (01) | LOC: CR 15:43 | PROVIDERS: PCP Internal Medicine; Referring Provider Internal Medicine; Visit Provider Internal Medicine | DX: Z95.5 Presence of coronary angioplasty implant and graft (principal) ==

== ENCOUNTER → 2022-08-07 10:47 | Outpatient (BNVA) | payer MEDICARE, SELFPAY | PROVIDERS: PCP Internal Medicine; Visit Provider Internal Medicine Cardiovascular Disease | DX: J84.9 Interstitial pulmonary disease, unspecified (principal); Z79.01 Long term (current) use of anticoagulants; I48.91 Unspecified atrial fibrillation; I10 Essential (primary) hypertension; M19.90 Unspecified osteoarthritis, unspecified site; I25.10 Atherosclerotic heart disease of native coronary artery without angina pectoris; Z87.891 Personal history of nicotine dependence | CPT/HCPCS: 99213 ==

== ENCOUNTER → 2022-08-08 13:18 | Outpatient (BNVA) | payer MEDICARE, SELFPAY | PROVIDERS: PCP Internal Medicine; Visit Provider Internal Medicine Pulmonary Disease | DX: J84.9 Interstitial pulmonary disease, unspecified (principal); M06.9 Rheumatoid arthritis, unspecified; M34.9 Systemic sclerosis, unspecified; Z87.891 Personal history of nicotine dependence; I25.10 Atherosclerotic heart disease of native coronary artery without angina pectoris; Z95.5 Presence of coronary angioplasty implant and graft; I48.91 Unspecified atrial fibrillation; Z79.01 Long term (current) use of anticoagulants; Z82.61 Family history of arthritis; I82.402 Acute embolism and thrombosis of unspecified deep veins of left lower extremity | CPT/HCPCS: 99214 ==

== ENCOUNTER 2022-09-01 13:46 | Outpatient (RCR) | payer SELFPAY | END 2022-09-29 23:59 | disposition home or self-care (01) | LOC: CR 13:46 | PROVIDERS: PCP Internal Medicine; Referring Provider Internal Medicine; Visit Provider Internal Medicine | DX: Z95.5 Presence of coronary angioplasty implant and graft (principal) ==

== ENCOUNTER → 2022-09-19 09:00 | Outpatient (BNVA) | payer MEDICARE, SELFPAY | PROVIDERS: PCP Internal Medicine; Visit Provider Nurse Practitioner Women's Health | DX: R30.0 Dysuria (principal) | CPT/HCPCS: 81000; 87086 ==

== ENCOUNTER 2022-10-02 13:33 | Outpatient (RCR) | payer SELFPAY | END 2022-10-30 23:59 | disposition home or self-care (01) | LOC: CR 13:33 | PROVIDERS: PCP Internal Medicine; Referring Provider Internal Medicine; Visit Provider Internal Medicine | DX: Z95.5 Presence of coronary angioplasty implant and graft (principal) ==

== ENCOUNTER → 2022-10-04 12:50 | Outpatient (BNVA) | payer MEDICARE, SELFPAY | PROVIDERS: PCP Internal Medicine; Visit Provider Internal Medicine Rheumatology | DX: M06.9 Rheumatoid arthritis, unspecified (principal); J84.9 Interstitial pulmonary disease, unspecified; Z71.85 Encounter for immunization safety counseling; Z79.899 Other long term (current) drug therapy; R76.8 Other specified abnormal immunological findings in serum | CPT/HCPCS: 99214 ==

== ENCOUNTER 2022-10-31 14:35 | Outpatient (RCR) | payer SELFPAY | END 2022-11-30 23:59 | disposition home or self-care (01) | LOC: CR 14:35 | PROVIDERS: PCP Internal Medicine; Referring Provider Internal Medicine; Visit Provider Internal Medicine | DX: Z95.5 Presence of coronary angioplasty implant and graft (principal) ==

== ENCOUNTER 2022-12-01 11:23 | Outpatient (RCR) | payer SELFPAY | END 2022-12-30 23:59 | disposition home or self-care (01) | LOC: CR 11:23 | PROVIDERS: PCP Internal Medicine; Referring Provider Internal Medicine; Visit Provider Internal Medicine | DX: Z95.5 Presence of coronary angioplasty implant and graft (principal) ==

== ENCOUNTER 2023-01-02 08:55 | Outpatient (RCR) | payer SELFPAY | END 2023-01-30 23:59 | disposition home or self-care (01) | LOC: CR 08:55 | PROVIDERS: PCP Internal Medicine; Referring Provider Internal Medicine; Visit Provider Internal Medicine | DX: Z95.5 Presence of coronary angioplasty implant and graft (principal) ==

== ENCOUNTER 2023-01-31 11:57 | Outpatient (RCR) | payer SELFPAY | END 2023-03-01 23:59 | disposition home or self-care (01) | LOC: CR 11:57 | PROVIDERS: PCP Internal Medicine; Referring Provider Internal Medicine; Visit Provider Internal Medicine | DX: Z95.5 Presence of coronary angioplasty implant and graft (principal) ==

== ENCOUNTER → 2023-02-12 11:06 | Outpatient (BNVA) | payer MEDICARE, SELFPAY | PROVIDERS: PCP Internal Medicine; Visit Provider Internal Medicine Cardiovascular Disease | DX: J84.9 Interstitial pulmonary disease, unspecified (principal); I48.91 Unspecified atrial fibrillation; Z79.01 Long term (current) use of anticoagulants; I10 Essential (primary) hypertension; I25.10 Atherosclerotic heart disease of native coronary artery without angina pectoris; E78.00 Pure hypercholesterolemia, unspecified; Z87.891 Personal history of nicotine dependence | CPT/HCPCS: 99213 ==

== ENCOUNTER → 2023-02-26 10:36 | Outpatient (BNVA) | payer MEDICARE, SELFPAY | PROVIDERS: PCP Internal Medicine; Visit Provider Internal Medicine Pulmonary Disease | DX: J84.9 Interstitial pulmonary disease, unspecified (principal); M34.9 Systemic sclerosis, unspecified; I82.412 Acute embolism and thrombosis of left femoral vein; I25.10 Atherosclerotic heart disease of native coronary artery without angina pectoris; Z95.5 Presence of coronary angioplasty implant and graft; I48.91 Unspecified atrial fibrillation; Z79.01 Long term (current) use of anticoagulants; Z87.891 Personal history of nicotine dependence | CPT/HCPCS: 99214 ==

== ENCOUNTER 2023-03-06 12:12 | Outpatient (RCR) | payer SELFPAY | END 2023-04-01 23:59 | disposition home or self-care (01) | LOC: CR 12:12 | PROVIDERS: PCP Internal Medicine; Referring Provider Internal Medicine; Visit Provider Internal Medicine | DX: Z95.5 Presence of coronary angioplasty implant and graft (principal) ==

== ENCOUNTER 2023-04-03 10:46 | Outpatient (RCR) | payer SELFPAY | END 2023-05-02 23:59 | disposition home or self-care (01) | LOC: CR 10:46 | PROVIDERS: PCP Internal Medicine; Referring Provider Internal Medicine; Visit Provider Internal Medicine | DX: Z95.5 Presence of coronary angioplasty implant and graft (principal) ==

== ENCOUNTER → 2023-04-04 14:00 | Outpatient (BNVA) | payer MEDICARE, SELFPAY | PROVIDERS: PCP Internal Medicine; Visit Provider Nurse Practitioner Women's Health | DX: N39.0 Urinary tract infection, site not specified (principal) | CPT/HCPCS: 87086 ==

== ENCOUNTER 2023-04-25 08:12 | Outpatient (CLI) | payer MEDICARE, SELFPAY ==
--- NOTE | 2023-04-25 08:19 | MM_ITS ---
WS: [id number] BILATERAL SCREENING DIGITAL TOMOSYNTHESIS MAMMOGRAM WITH CAD HISTORY: SCREENING COMPARISON: 04/24/2022 and 02/11/2021 Bilateral CC and MLO views with tomosynthesis and synthetic mammography submitted. Computer aided det ection analyzed. Breast composition: There are scattered areas of fibroglandular density. No suspicious masses, microc alcifications or architectural distortion. Bilateral breast arterial calcifications. The asymmetries and calcifications are stable. IMPRESSION: MM/[place] [id number] BI-RADS: 2-Benign FOLLOW UP: 1 Year Follow-up
== END 2023-04-25 08:13 | disposition home or self-care (01) ==
LOC: RAD 08:14
PROVIDERS: PCP Internal Medicine; Visit Provider Internal Medicine
DX: Z12.31 Encounter for screening mammogram for malignant neoplasm of breast (principal); R92.323 Mammographic fibroglandular density, bilateral breasts; R92.1 Mammographic calcification found on diagnostic imaging of breast
CPT/HCPCS: 77063; 77067

== ENCOUNTER 2023-05-03 12:53 | Outpatient (RCR) | payer SELFPAY | END 2023-05-31 23:59 | disposition home or self-care (01) | LOC: CR 12:53 | PROVIDERS: PCP Internal Medicine; Referring Provider Internal Medicine; Visit Provider Internal Medicine | DX: Z95.5 Presence of coronary angioplasty implant and graft (principal) ==

== ENCOUNTER 2023-06-04 13:10 | Outpatient (RCR) | payer SELFPAY | END 2023-07-01 23:59 | disposition home or self-care (01) | LOC: CR 13:10 | PROVIDERS: PCP Internal Medicine; Referring Provider Internal Medicine; Visit Provider Internal Medicine | DX: Z95.5 Presence of coronary angioplasty implant and graft (principal) ==

== ENCOUNTER 2023-07-03 13:23 | Outpatient (RCR) | payer SELFPAY | END 2023-07-31 23:59 | disposition home or self-care (01) | LOC: CR 13:23 | PROVIDERS: PCP Internal Medicine; Referring Provider Internal Medicine; Visit Provider Internal Medicine | DX: Z95.5 Presence of coronary angioplasty implant and graft (principal) ==

== ENCOUNTER → 2023-07-18 12:08 | Outpatient (BNVA) | payer MEDICARE, SELFPAY | PROVIDERS: PCP Internal Medicine; Visit Provider Internal Medicine Cardiovascular Disease | DX: I25.10 Atherosclerotic heart disease of native coronary artery without angina pectoris (principal); I48.91 Unspecified atrial fibrillation; I10 Essential (primary) hypertension; I82.412 Acute embolism and thrombosis of left femoral vein; Z79.01 Long term (current) use of anticoagulants; Z87.891 Personal history of nicotine dependence | CPT/HCPCS: 99214 ==

== ENCOUNTER 2023-08-02 13:28 | Outpatient (RCR) | payer SELFPAY | END 2023-08-31 23:59 | disposition home or self-care (01) | LOC: CR 13:28 | PROVIDERS: PCP Internal Medicine; Referring Provider Internal Medicine; Visit Provider Internal Medicine | DX: Z95.5 Presence of coronary angioplasty implant and graft (principal) ==

== ENCOUNTER → 2023-08-29 10:45 | Outpatient (BNVA) | payer MEDICARE, SELFPAY | PROVIDERS: PCP Internal Medicine; Visit Provider Internal Medicine Pulmonary Disease | DX: J84.9 Interstitial pulmonary disease, unspecified (principal); M06.9 Rheumatoid arthritis, unspecified; M34.9 Systemic sclerosis, unspecified; I82.412 Acute embolism and thrombosis of left femoral vein; Z87.891 Personal history of nicotine dependence; I48.91 Unspecified atrial fibrillation; Z79.01 Long term (current) use of anticoagulants; I25.10 Atherosclerotic heart disease of native coronary artery without angina pectoris; I10 Essential (primary) hypertension | CPT/HCPCS: 99214 ==

== ENCOUNTER 2023-09-04 13:10 | Outpatient (RCR) | payer SELFPAY | END 2023-09-30 23:59 | disposition home or self-care (01) | LOC: CR 13:10 | PROVIDERS: PCP Internal Medicine; Referring Provider Internal Medicine; Visit Provider Internal Medicine | DX: Z95.5 Presence of coronary angioplasty implant and graft (principal) ==

== ENCOUNTER 2023-10-02 15:22 | Outpatient (RCR) | payer SELFPAY | END 2023-10-31 23:59 | disposition home or self-care (01) | LOC: CR 15:22 | PROVIDERS: PCP Internal Medicine; Referring Provider Internal Medicine; Visit Provider Internal Medicine | DX: Z95.5 Presence of coronary angioplasty implant and graft (principal) ==

== ENCOUNTER 2023-11-01 11:23 | Outpatient (RCR) | payer SELFPAY | END 2023-12-06 09:11 | disposition home or self-care (01) | LOC: CR 11:23 | PROVIDERS: PCP Internal Medicine; Referring Provider Internal Medicine; Visit Provider Internal Medicine | DX: Z95.5 Presence of coronary angioplasty implant and graft (principal) ==

== ENCOUNTER 2023-12-05 12:41 | Outpatient (RCR) | payer SELFPAY | END 2023-12-31 23:59 | disposition home or self-care (01) | LOC: CR 12:41 | PROVIDERS: PCP Internal Medicine; Referring Provider Internal Medicine; Visit Provider Internal Medicine | DX: Z95.5 Presence of coronary angioplasty implant and graft (principal) ==

== ENCOUNTER 2024-01-01 13:25 | Outpatient (RCR) | payer SELFPAY | END 2024-01-31 23:59 | disposition home or self-care (01) | LOC: CR 13:25 | PROVIDERS: PCP Internal Medicine; Referring Provider Internal Medicine; Visit Provider Internal Medicine | DX: Z95.5 Presence of coronary angioplasty implant and graft (principal) ==

== ENCOUNTER → 2024-01-17 12:38 | Outpatient (BNVA) | payer MEDICARE, SELFPAY | PROVIDERS: PCP Internal Medicine; Visit Provider Internal Medicine Cardiovascular Disease | DX: I25.10 Atherosclerotic heart disease of native coronary artery without angina pectoris (principal); E78.00 Pure hypercholesterolemia, unspecified; I48.91 Unspecified atrial fibrillation; Z87.891 Personal history of nicotine dependence; Z79.01 Long term (current) use of anticoagulants | CPT/HCPCS: 99213 ==

== ENCOUNTER 2024-01-22 08:11 | Outpatient (CLI) | payer MEDICARE, SELFPAY ==
--- NOTE | 2024-01-22 08:14 | FL_ITS ---
WS: [id number] Exam: FL barium enema w air* [id number] Date/Time of Exam: 01/22/2024 8:41 AM Reason For Exam: COLON STRICTURE Preliminary survey of the abdomen is unremarkable. The colon fills to the cecum. Barium could not be refluxed into the terminal ileum. There was marked colonic spasm noted during the exam. There is moderately advanced diverticulosis of the sigmoid and l ower descending colon with additional scattered diverticuli throughout the remainder of the colon. Th ere were no constricting masses identified. The colon is not displaced. The haustral pattern is other afrah well-maintained. FL/FL barium enema w air* [id number] IMPRESSION: 1. No colonic mass or constricting lesion identified. 2. Moderately advanced diverticulosis of the sigmoid and descending colon. 3. Marked colonic spasm was noted during the exam.
== END 2024-01-22 08:12 | disposition home or self-care (01) ==
LOC: RAD 08:11
PROVIDERS: PCP Internal Medicine; Visit Provider Internal Medicine
DX: K56.699 Other intestinal obstruction unspecified as to partial versus complete obstruction (principal); K57.32 Diverticulitis of large intestine without perforation or abscess without bleeding; K58.9 Irritable bowel syndrome, unspecified
CPT/HCPCS: 74280

== ENCOUNTER 2024-02-01 13:29 | Outpatient (RCR) | payer SELFPAY | END 2024-03-01 23:59 | disposition home or self-care (01) | LOC: CR 13:29 | PROVIDERS: PCP Internal Medicine; Referring Provider Internal Medicine; Visit Provider Internal Medicine | DX: Z95.5 Presence of coronary angioplasty implant and graft (principal) ==

== ENCOUNTER 2024-03-02 13:28 | Outpatient (RCR) | payer SELFPAY | END 2024-04-01 23:59 | disposition home or self-care (01) | LOC: CR 13:28 | PROVIDERS: PCP Internal Medicine; Referring Provider Internal Medicine; Visit Provider Internal Medicine | DX: Z95.5 Presence of coronary angioplasty implant and graft (principal) ==

== ENCOUNTER 2024-04-02 10:17 | Outpatient (RCR) | payer SELFPAY | END 2024-05-02 23:59 | disposition home or self-care (01) | LOC: CR 10:17 | PROVIDERS: PCP Internal Medicine; Referring Provider Internal Medicine; Visit Provider Internal Medicine | DX: Z95.5 Presence of coronary angioplasty implant and graft (principal) ==

== ENCOUNTER 2024-04-28 08:05 | Outpatient (CLI) | payer MEDICARE, SELFPAY ==
--- NOTE | 2024-04-28 08:10 | MM_ITS ---
WS: [id number] BILATERAL SCREENING DIGITAL TOMOSYNTHESIS MAMMOGRAM WITH CAD HISTORY: SCREENING COMPARISON: 04/25/2023, 04/24/2022 Bilateral CC and MLO views with tomosynthesis and synthetic mammography submitted. Computer aided det ection analyzed. Breast composition: There are scattered areas of fibroglandular density. No suspicious masses, microc alcifications or architectural distortion. Breast arterial calcifications and round calcifications wh ich are benign. MM/MM scr tomosynthesis [id number] IMPRESSION: BI-RADS: 2 - Benign. FOLLOW UP: 1 Year Follow-up
== END 2024-04-28 08:06 | disposition home or self-care (01) ==
LOC: RAD 08:07
PROVIDERS: PCP Internal Medicine; Visit Provider Internal Medicine
DX: Z12.31 Encounter for screening mammogram for malignant neoplasm of breast (principal); R92.323 Mammographic fibroglandular density, bilateral breasts; R92.1 Mammographic calcification found on diagnostic imaging of breast
CPT/HCPCS: 77063; 77067

== ENCOUNTER 2024-05-05 15:34 | Outpatient (RCR) | payer SELFPAY | END 2024-05-30 23:59 | disposition home or self-care (01) | LOC: CR 15:34 | PROVIDERS: PCP Internal Medicine; Referring Provider Internal Medicine; Visit Provider Internal Medicine | DX: Z95.5 Presence of coronary angioplasty implant and graft (principal) ==

== ENCOUNTER 2024-05-31 12:37 | Outpatient (RCR) | payer SELFPAY | END 2024-06-30 23:59 | disposition home or self-care (01) | LOC: CR 12:37 | PROVIDERS: PCP Internal Medicine; Referring Provider Internal Medicine; Visit Provider Internal Medicine | DX: Z95.5 Presence of coronary angioplasty implant and graft (principal) ==

== ENCOUNTER 2024-07-01 14:12 | Outpatient (RCR) | payer SELFPAY | END 2024-07-30 23:59 | disposition home or self-care (01) | LOC: CR 14:12 | PROVIDERS: PCP Internal Medicine; Referring Provider Internal Medicine; Visit Provider Internal Medicine | DX: Z95.5 Presence of coronary angioplasty implant and graft (principal) ==

== ENCOUNTER 2024-07-31 12:23 | Outpatient (RCR) | payer SELFPAY | END 2024-08-30 23:59 | disposition home or self-care (01) | LOC: CR 12:23 | PROVIDERS: PCP Internal Medicine; Referring Provider Internal Medicine; Visit Provider Internal Medicine | DX: Z95.5 Presence of coronary angioplasty implant and graft (principal) ==

== ENCOUNTER 2024-08-31 09:40 | Outpatient (RCR) | payer SELFPAY | END 2024-09-29 23:59 | disposition home or self-care (01) | LOC: CR 09:40 | PROVIDERS: PCP Internal Medicine; Referring Provider Internal Medicine; Visit Provider Internal Medicine | DX: Z95.5 Presence of coronary angioplasty implant and graft (principal) ==

== ENCOUNTER 2024-09-30 09:58 | Outpatient (RCR) | payer SELFPAY | END 2024-10-30 23:59 | disposition home or self-care (01) | LOC: CR 09:58 | PROVIDERS: PCP Internal Medicine; Referring Provider Internal Medicine; Visit Provider Internal Medicine | DX: Z95.5 Presence of coronary angioplasty implant and graft (principal) ==

== ENCOUNTER 2024-11-05 14:32 | Outpatient (RCR) | payer SELFPAY | END 2024-11-30 23:59 | disposition home or self-care (01) | LOC: CR 14:32 | PROVIDERS: PCP Internal Medicine; Referring Provider Internal Medicine; Visit Provider Internal Medicine | DX: Z95.5 Presence of coronary angioplasty implant and graft (principal) ==

== ENCOUNTER 2024-12-02 14:04 | Outpatient (RCR) | payer SELFPAY | END 2024-12-30 23:59 | disposition home or self-care (01) | LOC: CR 14:04 | PROVIDERS: PCP Internal Medicine; Referring Provider Internal Medicine; Visit Provider Internal Medicine | DX: Z95.5 Presence of coronary angioplasty implant and graft (principal) ==

== ENCOUNTER 2024-12-31 08:52 | Outpatient (RCR) | payer SELFPAY | END 2025-01-30 23:59 | disposition home or self-care (01) | LOC: CR 08:52 | PROVIDERS: PCP Internal Medicine; Referring Provider Internal Medicine; Visit Provider Internal Medicine | DX: Z95.5 Presence of coronary angioplasty implant and graft (principal) ==

== ENCOUNTER → 2025-01-22 12:35 | Outpatient (BNVA) | payer MEDICARE, SELFPAY | PROVIDERS: PCP Internal Medicine; Visit Provider Internal Medicine Cardiovascular Disease | DX: I48.91 Unspecified atrial fibrillation (principal); I25.10 Atherosclerotic heart disease of native coronary artery without angina pectoris; I10 Essential (primary) hypertension; E78.00 Pure hypercholesterolemia, unspecified; J84.9 Interstitial pulmonary disease, unspecified; Z87.891 Personal history of nicotine dependence; Z79.01 Long term (current) use of anticoagulants | CPT/HCPCS: 99214 ==

== ENCOUNTER 2025-01-31 12:43 | Outpatient (RCR) | payer SELFPAY | END 2025-03-01 23:59 | disposition home or self-care (01) | LOC: CR 12:43 | PROVIDERS: PCP Internal Medicine; Referring Provider Internal Medicine; Visit Provider Internal Medicine | DX: Z95.5 Presence of coronary angioplasty implant and graft (principal) ==

== ENCOUNTER 2025-02-13 08:48 | Outpatient (CLI) | payer MEDICARE, SELFPAY ==
--- NOTE | 2025-02-13 09:15 | USCV_ITS ---
Tonia Figueroa Age: 74 Gender: F : 1950 Exam Date: 02/13/2025 09:33 Ordering Phys: Hanna De MD ([email or web address]) Technologist: ELLIE Exam Location: [facility] [place] Indication: sob, cad BP: 110 / 60 HR: 51 Rhythm: Other Technical Quality: Adequate MEASUREMENTS (Male / Female) Normal Values 2D ECHO LV Diastolic Diameter PLAX 4.5 cm 4.2 - 5.9 / 3.9 - 5.3 cm IVS Diastolic Thickness 0.9 cm 0.6 - 1.0 / 0.6 - 0.9 cm IVS Systolic Thickness 1.1 cm LVPW Diastolic Thickness 0.6 cm 0.6 - 1.0 / 0.6 - 0.9 cm LVPW Systolic Thickness 1.5 cm LVOT Diameter 2.0 cm LV Ejection Fraction 2D Teich 57.6 % LV Ejection Fraction MOD 4C 66.2 % LV Ejection Fraction MOD 2C 61.8 % LV Ejection Fraction 2C AL 61.2 % LA Diameter 3.6 cm RA Systolic Volume 4C AL 42.3 ml RA Systolic Volume 4C MOD 40.7 ml LA Sys Volume AL 46.7 cm cubed LA Sys Volume Index AL 25.4 cm cubed/m squared Aorta at Sinotubular Diameter 2.3 cm IVC Diameter 1.9 cm M-MODE LA Ao Ratio MM 1.4 AV Cusp Separation MM 1.7 cm DOPPLER AV Peak Velocity 147.0 cm/s LVOT Peak Velocity 74.0 cm/s AV Area Cont Eq vti 1.9 cm squared AV Area Cont Eq pk 1.6 cm squared MV Peak Velocity 86.0 cm/s MV Area PHT 2.6 cm squared Mitral E to A Ratio 0.8 TV Peak Velocity 227.0 cm/s TR Peak Velocity 296.0 cm/s TR Peak Gradient 35.0 mmHg TR Mean Velocity 243.0 cm/s TR Mean Gradient 24.6 mmHg TR Velocity Time Integral 81.9 cm PV Peak Velocity 74.0 cm/s RV Ejection Time 0.3 s FINDINGS Left Ventricle Normal left ventricular size, systolic function and wall thickness, with no regional wall motion abnormalities. Left ventricular ejection fraction is estimated at 62%. Right Ventricle Normal right ventricular size and systolic function. Right Atrium Normal right atrial size. Left Atrium Normal left atrial size. IA Septum Normal interatrial septum. Mitral Valve Mildly thickened mitral valve. Trace mitral valve regurgitation. Aortic Valve Mildly thickened aortic valve. No aortic valve stenosis. Tricuspid Valve Structurally normal tricuspid valve. Trace tricuspid valve regurgitation. TVPG 23 mmHg. High normal PA pressures (30 mmHg). Pulmonic Valve Structurally normal pulmonic valve. Trace pulmonary valve regurgitation. Pericardium No pericardial effusion. Aorta Normal size aortic root and proximal ascending aorta. IVC Upper normal size 19.5 mm. More than 50% size variation with respiration. CONCLUSIONS Normal left ventricle size and systolic function. Normal LVEF estimated at 62%. Normal RV size and RV systolic function. No significant valvular abnormality noted. High normal right heart and pulmonary pressures (30 mmHg). Phu West MD (Electronically Signed) Final Date: 24 February 2025 10:39 S
== END 2025-02-13 08:49 | disposition home or self-care (01) ==
LOC: RAD 08:49
PROVIDERS: PCP Internal Medicine; Visit Provider Internal Medicine Cardiovascular Disease
DX: R06.02 Shortness of breath (principal); I25.10 Atherosclerotic heart disease of native coronary artery without angina pectoris
CPT/HCPCS: 93306

== ENCOUNTER 2025-03-02 09:08 | Outpatient (RCR) | payer SELFPAY | END 2025-04-01 23:59 | disposition home or self-care (01) | LOC: CR 09:08 | PROVIDERS: PCP Internal Medicine; Referring Provider Internal Medicine; Visit Provider Internal Medicine | DX: Z95.5 Presence of coronary angioplasty implant and graft (principal) ==